=== PATIENT | female | born 1940 | race Caucasian/White ===

== ENCOUNTER → 2020-01-07 14:32 | Outpatient (CLI) | payer SELFPAY ==
[2020-01-07 14:46] LABS: RBC Urine None Seen (0-5/HPF)
[2020-01-07 15:19] LABS: Appearance Urine UA SL CLOUDY; Bilirubin Urine UA NEGATIVE (NEGATIVE); Color Urine UA YELLOW; Glucose Urine UA NEGATIVE (Negative); Ketones Urine UA NEGATIVE (NEGATIVE); Leukocyte Esterase Urine UA TRACE (NEGATIVE); Nitrite Urine UA POSITIVE (Negative); Occult Blood Urine UA NEGATIVE (Negative); Protein Urine UA NEGATIVE (Negative); Urobilinogen Urine UA 0.2 E.U./dL (0.2)
[2020-01-07 15:22] LABS: Add Manual Diff / Slide Review NO; Basophils Absolute Auto 0 /uL (0-100); Basophils Percent Auto 0.2 % (0-2); Eosinophils Absolute Auto 100 /uL (0-450); Eosinophils Percent Auto 1.4 % (2-4); Hematocrit 33.2 % (36-46); Hemoglobin 10.9 g/dL (12.0-16.0); Lymphocytes Absolute Auto 1100 /uL (1100-4500); Lymphocytes Percent Auto 14.7 % (25-40); Mean Corpuscular HGB Conc 32.9 % (30-36); Mean Corpuscular Hemoglobin 30.9 PG (26-34); Mean Corpuscular Volume 94.1 fL (80-100); Monocytes Absolute Auto 400 /uL (0-900); Monocytes Percent Auto 5.8 % (3-14); Neutrophils Absolute Auto 6000 /uL (1500-7000); Neutrophils Percent Auto 77.9 % (50-75); Platelet Count 219 X10^3/uL (150-400); Red Blood Cell Count 3.53 X10^6/uL (4.0-5.2); Red Cell Distribution Width 14.7 % (11.6-14.8); White Blood Cell Count 7.7 X10^3/uL (4.5-11.0)
[2020-01-07 15:35] LABS: Bacteria Urine Many (>30); WBC Urine 5-10/HPF (0-5/HPF)
[2020-01-07 15:36] LABS: Culture Indicated Urine Specimen Cultured
[2020-01-07 15:52] LABS: Alanine Aminotransferase 15 IU/L (<35); Albumin 2.4 g/dL (3.5-5.0); Albumin Globulin Ratio 0.9 (1.0-2.8); Alkaline Phosphatase 107 U/L (38-126); Aspartate Aminotransferase 28 IU/L (14-36); BUN Creatinine Ratio 18.7 (6-22); Bilirubin Total 0.4 mg/dL (0.2-1.3); Blood Urea Nitrogen 20 mg/dL (7-17); Calcium 8.7 mg/dL (8.4-10.2); Carbon Dioxide 31 mmol/L (22-32); Chloride 104 mmol/L (98-107); Cholesterol 116 mg/dL (140-199); Estimated Glomerular Filt Rate 49.3 mL/min (>60); Globulin 2.7 g/dL (1.7-4.1); Glucose 92 mg/dL (80-110); HDL Cholesterol 45 mg/dL (40-60); HEMOLYSIS < 15 (0-50); LDL Cholesterol Calculated 48 mg/dL (<100); Potassium 5.1 mmol/L (3.4-5.1); Sodium 136 mmol/L (137-145); Total Protein 5.1 g/dL (6.3-8.2); Triglycerides 115 mg/dL (35-150)
[2020-01-07 16:42] LABS: Vitamin B12 849 pg/mL (239-931)
== END ==
PROVIDERS: Family Provider Family Medicine; PCP Registered Nurse Diabetes Educator; Referring Provider Registered Nurse Diabetes Educator; Visit Provider Registered Nurse Diabetes Educator
DX: E03.9 Hypothyroidism, unspecified (principal); Z13.220 Encounter for screening for lipoid disorders; E53.8 Deficiency of other specified B group vitamins; R32 Unspecified urinary incontinence
CPT/HCPCS: 36415; 80053; 80061; 81001; 82607; 84439; 84443; 85025; 87077; 87086; 87186

== ENCOUNTER → 2020-03-05 14:46 | Outpatient (CLI) | payer SELFPAY ==
[2020-03-05 16:01] LABS: BUN Creatinine Ratio 14.7 (6-22); Blood Urea Nitrogen 17 mg/dL (7-17); Carbon Dioxide 34 mmol/L (22-32); Chloride 105 mmol/L (98-107); Glucose 115 mg/dL (80-110); HEMOLYSIS < 15 (0-50); Sodium 139 mmol/L (137-145)
== END ==
PROVIDERS: Family Provider Family Medicine; PCP Family Medicine; Referring Provider Family Medicine; Visit Provider Family Medicine
DX: R89.9 Unspecified abnormal finding in specimens from other organs, systems and tissues (principal)
CPT/HCPCS: 36415; 80048

== ENCOUNTER → 2020-05-31 12:46 | Outpatient (CLI) | payer SELFPAY ==
[2020-05-31 14:04] LABS: Add Manual Diff / Slide Review NO; Basophils Absolute Auto 0 /uL (0-100); Basophils Percent Auto 0.4 % (0-2); Eosinophils Absolute Auto 200 /uL (0-450); Eosinophils Percent Auto 3.8 % (2-4); Hematocrit 35.1 % (36-46); Hemoglobin 11.4 g/dL (12.0-16.0); Lymphocytes Absolute Auto 1200 /uL (1100-4500); Lymphocytes Percent Auto 18.2 % (25-40); Mean Corpuscular HGB Conc 32.5 % (30-36); Mean Corpuscular Hemoglobin 30.8 PG (26-34); Mean Corpuscular Volume 94.8 fL (80-100); Monocytes Absolute Auto 500 /uL (0-900); Monocytes Percent Auto 7.2 % (3-14); Neutrophils Absolute Auto 4600 /uL (1500-7000); Neutrophils Percent Auto 70.4 % (50-75); Platelet Count 184 X10^3/uL (150-400); Red Cell Distribution Width 13.7 % (11.6-14.8); White Blood Cell Count 6.5 X10^3/uL (4.5-11.0)
[2020-05-31 14:24] LABS: Alanine Aminotransferase 14 IU/L (<35); Albumin Globulin Ratio 1.1 (1.0-2.8); Alkaline Phosphatase 87 U/L (38-126); Aspartate Aminotransferase 28 IU/L (14-36); BUN Creatinine Ratio 20.4 (6-22); Bilirubin Total 0.4 mg/dL (0.2-1.3); Blood Urea Nitrogen 21 mg/dL (7-17); Calcium 8.9 mg/dL (8.4-10.2); Carbon Dioxide 35 mmol/L (22-32); Chloride 106 mmol/L (98-107); Cholesterol 127 mg/dL (140-199); Estimated Glomerular Filt Rate 51.6 mL/min (>60); Globulin 2.7 g/dL (1.7-4.1); Glucose 89 mg/dL (80-110); HDL Cholesterol 42 mg/dL (40-60); HEMOLYSIS < 15 (0-50); LDL Cholesterol Calculated 67 mg/dL (<100); Potassium 4.8 mmol/L (3.4-5.1); Sodium 137 mmol/L (137-145); Total Protein 5.7 g/dL (6.3-8.2); Triglycerides 91 mg/dL (35-150)
[2020-05-31 14:42] LABS: Free T3, Triiodothyronine Free 3.36 pg/mL (2.77-5.27); Free T4, Direct Thyroxine 1.08 ng/dL (0.78-2.19)
[2020-05-31 14:55] LABS: Thyroid Stimulating Hormone 4.28 uIU/mL (0.47-4.68)
[2020-05-31 15:13] LABS: Vitamin B12 891 pg/mL (239-931)
== END ==
PROVIDERS: Family Provider Family Medicine; PCP Family Medicine; Referring Provider Family Medicine; Visit Provider Family Medicine
DX: D64.9 Anemia, unspecified (principal); E03.9 Hypothyroidism, unspecified; E53.8 Deficiency of other specified B group vitamins; N18.31 Chronic kidney disease, stage 3a; Z13.220 Encounter for screening for lipoid disorders
CPT/HCPCS: 36415; 80053; 80061; 82607; 84439; 84443; 84481; 85025

== ENCOUNTER → 2020-06-18 13:06 | Outpatient (CLI) | payer SELFPAY ==
--- NOTE | 2020-06-18 13:16 | DI.RAD.S_ITS ---
PROCEDURE: XR CERVICAL SPINE 2V OR 3V INDICATIONS: neck pain TECHNIQUE: 4 view(s) of the cervical spine were acquired. COMPARISON: None. FINDINGS: Bones: No fractures or dislocations to the C4-C5 level on the lateral view. There is near severe degenerative disc disease faintly seen through the shoulders at the C5-6 and C6-7 levels of the cervical spine. Facet osteoarthritis over the middle and lower thirds of the cervical spine appears moderately severe on the frontal projection.. The lateral masses of C1 appear intact on the odontoid view. No suspicious bony lesions. Soft tissues: No prevertebral soft tissue swelling. IMPRESSION: Limited study as discussed above, no definite trauma found. Moderately severe to severe degenerative disc disease over the lower half of the cervical spine, and moderately severe mid and lower 3rd facet osteoarthritis along the cervical spine bilaterally. Significant spinal and foraminal stenosis would be expected. Dictated by: Frantz Morgan M.D. on 06/18/2020 at 14:15 Approved by: Frantz Morgan M.D. on 06/18/2020 at 14:17
== END ==
PROVIDERS: Family Provider Family Medicine; PCP Family Medicine; Referring Provider Family Medicine; Visit Provider Family Medicine
DX: M50.322 Other cervical disc degeneration at C5-C6 level (principal); M47.812 Spondylosis without myelopathy or radiculopathy, cervical region; G89.29 Other chronic pain
CPT/HCPCS: 72040

== ENCOUNTER → 2020-08-03 13:19 | Outpatient (CLI) | payer SELFPAY ==
--- NOTE | 2020-08-03 13:23 | DI.RAD.S_ITS ---
PROCEDURE: XR CHEST 2V INDICATIONS: dyspnea on exertion TECHNIQUE: 2 views of the chest were acquired. COMPARISON: None. FINDINGS: Surgical changes and devices: Surgical clips project over the epigastric region and right upper quadrant of the abdomen. Lungs and pleura: Mild diffuse reticulonodular pulmonary opacity is present. Calcified granuloma within the right mid lung. No pleural effusions or pneumothorax. Mediastinum: Mediastinal contours are normal. Heart size is enlarged. Bones and chest wall: No suspicious bony abnormalities. Soft tissues appear unremarkable. IMPRESSION: 1. Mild pulmonary fibrosis versus atypical pneumonia. 2. Remote granulomatous disease. 3. Cardiomegaly. Dictated by: Jagdish Thakkar M.D. on 08/03/2020 at 16:33 Approved by: Jagdish Thakkar M.D. on 08/03/2020 at 16:34
[2020-08-03 14:43] LABS: Alanine Aminotransferase 14 IU/L (<35); Albumin Globulin Ratio 1.1 (1.0-2.8); Alkaline Phosphatase 75 U/L (38-126); Aspartate Aminotransferase 26 IU/L (14-36); Bilirubin Total 0.5 mg/dL (0.2-1.3); Blood Urea Nitrogen 19 mg/dL (7-17); Calcium 9.2 mg/dL (8.4-10.2); Carbon Dioxide 29 mmol/L (22-32); Chloride 104 mmol/L (98-107); Estimated Glomerular Filt Rate 56.6 mL/min (>60); Globulin 2.7 g/dL (1.7-4.1); Glucose 93 mg/dL (80-110); HEMOLYSIS < 15 (0-50); Potassium 4.8 mmol/L (3.4-5.1); Sodium 136 mmol/L (137-145); Total Protein 5.7 g/dL (6.3-8.2)
[2020-08-03 14:44] LABS: NT-proBNP (BNP-Adult 18+) 1630 pg/mL (<450)
== END ==
PROVIDERS: Family Provider Family Medicine; PCP Family Medicine; Referring Provider Family Medicine; Visit Provider Family Medicine
DX: R06.00 Dyspnea, unspecified (principal)
CPT/HCPCS: 36415; 71046; 80053; 83880

== ENCOUNTER → 2021-02-15 13:36 | Outpatient (CLI) | payer MEDICARE, MEDICAID, SELFPAY ==
--- NOTE | 2021-02-15 13:37 | DI.RAD.S_ITS ---
PROCEDURE: XR HUMERUS LT 2V INDICATIONS: left arm pain TECHNIQUE: 2 views of the humerus were acquired. COMPARISON: [facility], CR, XR HUMERUS LEFT, 04/15/2018, 11:38. [facility], CR, XR HUMERUS LEFT, 03/25/2018, 8:55. [facility], CR, XR SHOULDER 2+ VIEWS LEFT, 11/13/2018, 10:13. FINDINGS: Bones: Cortical irregularity is seen at the proximal humeral metaphysis, consistent with known healed fracture. The alignment is unchanged. Severe degenerative changes are seen at the glenohumeral joint with joint space narrowing, subchondral sclerosis, and marginal osteophyte formation. Mild to moderate degenerative changes are seen in the acromioclavicular joint. No suspicious bony lesions. Soft tissues: Small ossification is seen anterior to the distal humerus, possibly representing a dystrophic calcification , unchanged when compared to radiographs from 03/25/2018. Calcifications are again seen adjacent to the greater tuberosity, consistent with rotator cuff calcific tendinopathy. IMPRESSION: 1. Severe glenohumeral osteoarthrosis. 2. Chronic healed fracture deformity of the proximal humerus. 3. Rotator cuff calcific tendinopathy. Dictated by: Geoffrey Sargent M.D. on 02/15/2021 at 15:40 Approved by: Geoffrey Sargent M.D. on 02/15/2021 at 15:44
--- NOTE | 2021-02-15 13:37 | DI.RAD.S_ITS ---
PROCEDURE: XR ELBOW LT MIN 3V INDICATIONS: left elbow pain TECHNIQUE: 3 views of the elbow were acquired. COMPARISON: None. FINDINGS: Bones: No definite fracture although arthritic changes limits study sensitivity. There is moderate to severe joint degeneration. Chondrocalcinosis is noted. Dystrophic soft tissue calcifications seen in the antecubital fossa measuring 8 mm Soft tissues: No elbow joint effusion. No suspicious soft tissue calcifications. Soft tissue swelling at the tip of the olecranon. IMPRESSION: Severe left elbow osteoarthritis. Olecranon soft tissue swelling. Chondrocalcinosis. Dictated by: Delio Church M.D. on 02/15/2021 at 16:18 Approved by: Delio Church M.D. on 02/15/2021 at 16:21
== END ==
PROVIDERS: Family Provider Family Medicine; PCP Family Medicine; Referring Provider Registered Nurse; Visit Provider Registered Nurse
DX: M19.022 Primary osteoarthritis, left elbow (principal); M11.222 Other chondrocalcinosis, left elbow; M79.89 Other specified soft tissue disorders; M25.522 Pain in left elbow; M79.602 Pain in left arm
CPT/HCPCS: 73060; 73080

== ENCOUNTER 2021-03-19 18:50 | Inpatient (IN) | payer MEDICARE, OTHER, MEDICAID, SELFPAY ==
[2021-03-19] VITALS (12 sets, daily range): BP systolic 143–172; BP diastolic 65–74; PULSE 63–83; RESP 15–27; TEMP 36.8; O2SAT 91–99; BMI 22.4
--- NOTE | 2021-03-19 19:13 | DI.RAD.S_ITS ---
PROCEDURE: XR CHEST 1V INDICATIONS: weak TECHNIQUE: One view of the chest was acquired. COMPARISON: [facility], CR, XR CHEST 2V, 08/03/2020, 13:36. FINDINGS: Surgical changes and devices: Surgical clips noted in the left upper abdomen. Lungs and pleura: Stable calcified granuloma in the periphery of the right mid lung zone. Diffuse interstitial prominence. Minimal blunting of the bilateral costophrenic angles. No pneumothorax. No focal consolidations. Mediastinum: The cardiomediastinal contours remain stable with leftward deviation of the upper trachea. Atherosclerotic calcifications of the aortic arch are present. Mild cardiomegaly. Bones and chest wall: No suspicious bony lesions. Overlying soft tissues appear unremarkable. IMPRESSION: 1. Cardiomegaly. 2. Diffuse interstitial prominence which is nonspecific but may represent an infectious/inflammatory process versus mild pulmonary edema. Recommend clinical correlation. No focal consolidation. 3. Stable appearance of mild leftward deviation of the trachea secondary to soft tissue density of the right superior paratracheal region. Findings may be related to overlapping vascular structures versus enlarged thyroid versus adenopathy. Dictated by: Rodolfo Cash M.D. on 03/19/2021 at 19:34 Approved by: Rodolfo Cash M.D. on 03/19/2021 at 19:39
[2021-03-19 19:28] LABS: Add Manual Diff / Slide Review NO; Basophils Absolute Auto 100 /uL (0-100); Basophils Percent Auto 0.5 % (0-2); Eosinophils Absolute Auto 0 /uL (0-450); Hematocrit 36.4 % (36-46); Hemoglobin 12.3 g/dL (12.0-16.0); Lymphocytes Absolute Auto 300 /uL (1100-4500); Lymphocytes Percent Auto 3.1 % (25-40); Mean Corpuscular HGB Conc 33.8 % (30-36); Mean Corpuscular Volume 91.5 fL (80-100); Monocytes Absolute Auto 700 /uL (0-900); Monocytes Percent Auto 6.5 % (3-14); Neutrophils Absolute Auto 9500 /uL (1500-7000); Neutrophils Percent Auto 89.9 % (50-75); Platelet Count 149 X10^3/uL (150-400); Red Blood Cell Count 3.98 X10^6/uL (4.0-5.2); Red Cell Distribution Width 13.1 % (11.6-14.8); White Blood Cell Count 10.6 X10^3/uL (4.5-11.0)
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
[2021-03-19] MEDS: SODIUM CHLORIDE 0.9% 1,000 ML 150 ML IV (19:29)
[2021-03-19 19:36] LABS: INR 1.1 (0.9-1.3); Prothrombin Time 11.9 SECONDS (10.1-12.7)
[2021-03-19 19:38] LABS: D Dimer 658 ng/mL (<230)
[2021-03-19 19:39] LABS: Lactate (Lactic Acid) 1.7 mmol/L (0.7-2.1)
[2021-03-19 19:40] LABS: Alanine Aminotransferase 23 IU/L (<35); Albumin 3.5 g/dL (3.5-5.0); Albumin Globulin Ratio 1.1 (1.0-2.8); Alkaline Phosphatase 70 U/L (38-126); Aspartate Aminotransferase 42 IU/L (14-36); BUN Creatinine Ratio 19.6 (6-22); Bilirubin Total 1.3 mg/dL (0.2-1.3); Blood Urea Nitrogen 21 mg/dL (7-17); Calcium 9.2 mg/dL (8.4-10.2); Carbon Dioxide 27 mmol/L (22-32); Chloride 92 mmol/L (98-107); Creatine Kinase 40 U/L (30-135); Estimated Glomerular Filt Rate 49.2 mL/min (>60); Globulin 3.1 g/dL (1.7-4.1); Glucose 150 mg/dL (80-110); HEMOLYSIS < 15 (0-50); Lipase 34 U/L (23-300); Potassium 4.2 mmol/L (3.4-5.1); Sodium 126 mmol/L (137-145); Total Protein 6.6 g/dL (6.3-8.2)
[2021-03-19 19:52] LABS: NT-proBNP (BNP-Adult 18+) 7170 pg/mL (<450); Troponin I 0.048 ng/mL (0.01-0.034)
[2021-03-19] MEDS: PANTOPRAZOLE 40 MG VIAL IV (19:52)
[2021-03-19] MEDS: ONDANSETRON 4 MG/2 ML INJ IV (19:52)
[2021-03-19 19:56] LABS: Procalcitonin 1.04 ng/mL (<0.5)
--- NOTE | 2021-03-19 20:06 | DI.CT.S_ITS ---
PROCEDURE: CT ANGIO CHEST PE PROTOCOL INDICATIONS: SOB, elevated troponin, BNP, DDimer TECHNIQUE: After the administration of intravenous contrast, 2 mm thick sections acquired from the pulmonary apices to the posterior costophrenic angles. 3-dimensional maximum intensity projection (MIP) coronal and sagittal reformats were then acquired through the thorax. For radiation dose reduction, the following was used: automated exposure control, adjustment of mA and/or kV according to patient size. COMPARISON: [facility], CR, XR CHEST 1V, 03/19/2021, 19:15. FINDINGS: Image quality: Excellent. Pulmonary arteries: There is enlargement of the main pulmonary arteries without evidence for acute right-sided heart strain. Findings likely represent sequela of chronic pulmonary arterial hypertension. No intraluminal filling defects to suggest central pulmonary embolism. Lungs and pleura: Trace bilateral pleural effusions with mild dependent atelectasis. There is a noncalcified 5 mm nodule in the periphery of the right upper lobe (image 106/series 5). Central and peripheral airways are patent. Mediastinum: Heart size is mildly enlarged, without pericardial effusion. Mild scattered atherosclerotic calcifications of the coronary arteries are noted. No mediastinal or hilar adenopathy. There is a nonspecific fluid attenuation lesion measuring approximately 1.2 x 2.3 cm involving the right infrahilar region. No associated enhancement. Thoracic aorta is normal in caliber and enhancement. Moderate atherosclerotic calcifications are seen in the thoracic aorta. Esophagus is distended and contains layering fluid. Findings are most pronounced in the proximal and mid esophagus. Suggestion of mild circumferential esophageal wall thickening. No hiatal hernia seen. Bones and chest wall: No suspicious bony lesions. Stable calcified nodule seen on prior radiograph correlates with a well-circumscribed oval sclerotic lesion along the lateral right 7th rib. This is likely a bone island. Ribs and thoracic spine appear intact throughout. Thyroid gland demonstrates enlargement of the right thyroid lobe extending substernally. This accounts in part for right paratracheal soft tissue density seen on comparison radiographs. No definable thyroid nodules. No axillary or supraclavicular adenopathy. No acute compression fractures of the imaged spine. Multilevel thoracic spondylosis. Abdomen: Multiple surgical clips are noted in the upper abdomen. Visualized upper abdominal solid organs are otherwise unremarkable in the early arterial phase of enhancement. IMPRESSION: 1. No acute pulmonary emboli identified. No evidence for acute right-sided heart strain. 2. Enlargement of the main pulmonary artery likely related to chronic pulmonary arterial hypertension. 3. Mild cardiomegaly and trace bilateral pleural effusions. 4. Atherosclerosis. 5. Thyromegaly with enlarged substernal right thyroid lobe. No definable nodules. Consider further characterization with outpatient thyroid ultrasound. The thyroid as well as adjacent vascular structures account for prominent right paratracheal density on comparison radiographs. 6. Nonspecific 1.2 x 2.3 cm fluid attenuation lesion in the right infrahilar region. This may represent a pericardial cyst. Low-attenuation neoplasm not excluded. Recommend short interval follow-up CT with contrast in 6-12 months to document continued stability. 7. Previously described calcified right mid lung zone granuloma correlates with a likely bone island along the lateral aspect of the right 7th rib. 8. Prominent, mildly distended esophagus with layering fluid and mild circumferential wall thickening. No distal stricturing or mass lesions. Findings may represent sequela of reflux esophagitis. Consider further evaluation with outpatient endoscopy or esophagram. Dictated by: Rodolfo Cash M.D. on 03/19/2021 at 20:35 Approved by: Rodolfo Cash M.D. on 03/19/2021 at 20:55
[2021-03-19 20:29] LABS: COVID19 - ADMIT (NP swab/PCR) Negative (Negative)
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
[2021-03-19 21:43] LABS: TSH w/ Reflex to FT4 1.46 uIU/mL (0.47-4.68)
[2021-03-19] MEDS: MORPHINE ER 30 MG TABLET PO (23:09)
[2021-03-19] MEDS: FLUoxetine 20 MG CAPSULE PO (23:10)
[2021-03-19 23:58] LABS: Sodium Urine Random 125 mmol/L (30-90)
[2021-03-20] VITALS (8 sets, daily range): BP systolic 134–148; BP diastolic 63–80; PULSE 71–86; RESP 14–19; TEMP 36.3–37.3; O2SAT 92–96; BMI 22.8
[2021-03-20 01:34] LABS: Troponin I 0.053 ng/mL (0.01-0.034)
--- NOTE | 2021-03-20 04:18 | PC.ADMIT ---
[facility] Admission Note: Patient arrived to floor at 00:35 from ED. Alert and orient x 4. Patient shown how to use call light and call light placed with in reach. Tele placed on patient, ICU notified. Urine specimen sent to lab. Bed alarm on, brakes on bed are locked. The patient,Elizabeth Leiva,80 y/o, was given written information regarding hospital policies, unit procedures and contact persons. Patient's smoking status: Former smoker. Vital Signs - 8 hr 03/19/21 21:20 03/19/21 21:30 03/19/21 22:00 Temperature Pulse Rate 75 74 82 Respiratory Rate 23 23 27 H Blood Pressure 143/65 H 151/68 H Pulse Oximetry 95 92 95 03/19/21 22:30 03/19/21 23:00 03/19/21 23:39 Temperature Pulse Rate 74 80 83 Respiratory Rate 19 24 20 Blood Pressure Pulse Oximetry 94 95 93 03/19/21 23:40 03/20/21 00:40 Temperature 98.5 F Pulse Rate 70 77 Respiratory Rate 15 18 Blood Pressure 148/65 H 141/80 H Pulse Oximetry 99 96
[2021-03-20] MEDS: ONDANSETRON 4 MG/2 ML INJ IV (05:38)
--- NOTE | 2021-03-20 07:18 | DI.ECHO.S_ITS ---
[facility]---------[facility] +---------+ : : [address] : : : : [id number] : : : : Phone: [phone] Echocardiogram Report + + :Name: JON ROJAS Study Date: 03/20/2021 Height: 65 in : :[facility] ReadingLocation: Weight: 137 lb : : Gender: Female BSA: 1.7 m2 : :: 1940 Age: 80 yrs BP: 148/65 mmHg: :Reason For Study: CONGESTIVE HEART FAILURE, ELEVATED TROPONIN : :Ordering Physician: VERONIKA, : :JYOTI Performed By: Aura Villagomez : :Referring: JYOTI BANDA : + + Interpretation Summary Left ventricular systolic function is borderline reduced with an estimated ejection fraction of 50 to 55% without any focal wall motion abnormality. Left ventricular size is normal with mild to moderate concentric hypertrophy. There is a probable diastolic relaxation abnormality with probable normal filling pressures. The right ventricle is at the upper limits of normal in size with systolic function at the lower limits of normal. Right ventricular systolic pressure cannot be estimated but CVP is likely around 3 mmHg. There is severe left atrial enlargement and mild to moderate right atrial enlargement. There is no significant functional valvular abnormality. Procedure: A two-dimensional transthoracic echocardiogram with color flow and Doppler was performed. The study quality was technically adequate. There is no prior echocardiogram noted for this patient. The patient was in sinus rhythm with heart rates between 74-82 bpm during the exam. Left Ventricle: The left ventricle is normal in size. The estimated left ventricular end diastolic volume is 69 ml. There is mild-moderate concentric left ventricular hypertrophy. Left ventricular systolic function is borderline reduced. The ejection fraction is estimated to be 50-55%. There are no focal wall motion abnormalities. Diastolic parameters suggest a relaxation abnormality of the left ventricle, consistent with probable normal filling pressures. Right Ventricle: The right ventricle is at the upper limits of normal in size. Right ventricular systolic function is at the lower limits of normal. Atria: The left atrium is severely dilated. The right atrium is mild to moderately dilated. There is no Doppler evidence for an interatrial shunt. Mitral Valve: The mitral valve is normal in structure and function. There is trace mitral regurgitation. Aortic Valve: The aortic valve is trileaflet. The aortic valve opens well. There is no aortic valve stenosis. No aortic regurgitation is present. Tricuspid Valve: The tricuspid valve is normal in structure and function. There is trace tricuspid regurgitation. Pulmonary artery pressures cannot be estimated because of the lack of a measurable TR jet velocity but the IVC suggests a CVP of around 3 mmHg. Pulmonic Valve: The pulmonic valve leaflets are thin and pliable; valve motion is normal. There is no pulmonic valvular regurgitation. There is no significant valvular heart disease. Great Vessels: The aortic root is normal size. The dimensions of the ascending aorta are normal. The IVC is of normal diameter and collapses greater than 50% with a sniff. This suggests a low right atrial pressure of 3 mm Hg. Pericardium/ Pleura There is no pericardial effusion. There is no pleural effusion. MMode/2D Measurements & Calculations LVIDd: 5.1 cm LVOT diam: 2.3 cm LVIDs: 4.1 cm Ao root diam: 3.3 cm FS: 21.1 % asc Aorta Diam: 3.2 cm IVSd: 1.4 cm LVPWd: 1.3 cm LV cramer. diameter/BSA (cm/m^2): 3.1 LV sys. diameter/BSA (cm/m^2): 2.4 LA A2 area: 25.6 cm2 RA long axis: 5.1 cm LA A4 area: 27.8 cm2 RA area: 19.6 cm2 LA length (vol): 6.4 cm RA vol: 63.6 ml LA vol: 95.0 ml RA : 37.8 ml/m2 LA vol index: 56.4 ml/m2 IVC diam: 1.6 cm RVD1 (basal): 3.5 cm TAPSE: 2.5 cm Doppler Measurements & Calculations Ao V2 max: 105.1 cm/sec LVOT Max Esdras: 84.8 cm/sec Ao V2 mean: 80.2 cm/sec LV V1 max P.9 mmHg Ao max P.4 mmHg LV V1 VTI: 17.4 cm Ao mean P.8 mmHg GILBERT(I,D): 3.5 cm2 Ao V2 VTI: 21.4 cm GILBERT(V,D): 3.5 cm2 sev ratio: 0.82 GILBERT indexed to BSA (cm^2/m^2): 2.1 MV E max esdras: 73.7 cm/sec PA V2 max: 87.4 cm/sec MV A max esdras: 76.0 cm/sec PA V2 mean: 62.0 cm/sec MV E/A: 0.97 PA mean P.7 mmHg Med Peak E' Esdras: 3.9 cm/sec PA pr(Accel): 36.2 mmHg E/E' med: 18.9 Lat Peak E' Esdras: 4.8 cm/sec E/E' lat: 15.5 E/e' average: 17.2 MV dec time: 0.22 sec SV(LVOT): 75.3 ml Reading Physician:11:56 AM
[2021-03-20 08:48] LABS: Add Manual Diff / Slide Review NO; Basophils Absolute Auto 0 /uL (0-100); Basophils Percent Auto 0.1 % (0-2); Eosinophils Absolute Auto 0 /uL (0-450); Hematocrit 35.5 % (36-46); Hemoglobin 11.8 g/dL (12.0-16.0); Lymphocytes Absolute Auto 300 /uL (1100-4500); Lymphocytes Percent Auto 3.6 % (25-40); Mean Corpuscular HGB Conc 33.3 % (30-36); Mean Corpuscular Hemoglobin 30.5 PG (26-34); Mean Corpuscular Volume 91.6 fL (80-100); Monocytes Absolute Auto 1000 /uL (0-900); Monocytes Percent Auto 10.8 % (3-14); Neutrophils Absolute Auto 8100 /uL (1500-7000); Neutrophils Percent Auto 85.5 % (50-75); Platelet Count 134 X10^3/uL (150-400); Red Blood Cell Count 3.87 X10^6/uL (4.0-5.2); Red Cell Distribution Width 13.3 % (11.6-14.8); White Blood Cell Count 9.4 X10^3/uL (4.5-11.0)
[2021-03-20 09:03] LABS: BUN Creatinine Ratio 21.5 (6-22); Blood Urea Nitrogen 20 mg/dL (7-17); Calcium 8.9 mg/dL (8.4-10.2); Carbon Dioxide 27 mmol/L (22-32); Chloride 93 mmol/L (98-107); Estimated Glomerular Filt Rate 57.9 mL/min (>60); Glucose 97 mg/dL (80-110); HEMOLYSIS 26 (0-50); Magnesium 1.8 mg/dL (1.6-2.3); Potassium 4.3 mmol/L (3.4-5.1); Sodium 125 mmol/L (137-145)
[2021-03-20 09:15] LABS: Troponin I 0.053 ng/mL (0.01-0.034)
[2021-03-20] MEDS: LEVOTHYROXINE 100 MCG TABLET PO (10:10)
[2021-03-20] MEDS: ENOXAPARIN 40 MG/0.4 ML SYRINGE SUBCUT (10:10)
[2021-03-20] MEDS: PANTOPRAZOLE 40 MG VIAL IV (10:10)
--- NOTE | 2021-03-20 11:00 | CM.DANOTE ---
DCP: Case received, EMR reviewed and met with patient. Introduced self and role. Was able to obtain information regarding patient's baseline activity. DCP assessment completed with information currently available. Patient is an 80 year old female who admitted yesterday evening to the care of the hospitalist team. PCP: Dr. Rubio. Payer: confirmed: Medicare/Medicaid [employer] Program. Patient came to the hospital via private vehicle secondary to feeling awful. Patient was noted to be hyponatremic, and have an increased troponin. Met with patient in her room. She is alert and oriented, and sitting up in bed. Confirmed with patient that she resides in [place] with her granddaughter, Maame. Patient indicated that she does have a FWW at home that she uses, and she does her own showers and meals. She does not drive, and takes para transit as well as senior transportation to her medical appointments. P: DCP to continue to follow. She does not yet have current P.T. orders, hospitalist has not yet seen her. She should be able to go home when she is medically stable, and may consider a P.T. eval as well. Harriett Vega RN/Medical Art Therapist Discharge Planning/Care Management Advanced directive, confirm from FAMILY Start: 03/20/21 01:19 PDT Freq: Q24H Status: Active Protocol: Document 03/20/21 09:00 CM (Rec: 03/20/21 09:18 CM [id number]) Advance Directive, confirm on record Time 09:18 Person contacted Pt Copy received No CM Discharge Assessment Start: 03/20/21 10:58 Freq: Status: Active Protocol: Document 03/20/21 10:58 VM (Rec: 03/20/21 11:00 VM [id number]) Discharge Planning Assessment Assigned Ditch Worker Harriett Vega RN/Medical Art Therapist Advance Directives? No Advance Directives on File No History Provided By Patient,Medical Record Prior Living Arrangements Apartment/Condo Household Members family Type of transporation used prior to Relies on Others admit Comment Patient uses para transit and senior transportation to her medical appointments. Independent with ADL's Yes Is patient alert and oriented? Yes Needs Assistance With Home Chores / Shopping Caregiver for Another No Barriers to Discharge No Discharge Plan Home Transportation Arrangement Granddaughter Referrals Initiated None needed Additional Comment She does not have current P.T. orders as of yet. Hospitalist will need to see patient. Whiteboard Updated in Patient Room with Yes name and ext. # of Ditch Worker Review Status In Process Next Review Type Continued Stay Review
[2021-03-20] MEDS: MORPHINE ER 30 MG TABLET PO ×2 (12:09→22:52)
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
[2021-03-20] MEDS: HYDROCODONE/ACET 5/325 TABLET 1 TAB PO (18:09)
--- NOTE | 2021-03-20 20:07 | PC.NURSE ---
Patient is alert and oriented. BISHOP PAIUTE and does not have hearing aids. Breath sounds CTA with RA sat of 92%. HRR with last telemetry reading recorded as SR w/1st degree AVB. BP elevated at 140/65 and BP meds are currently on hold. Admits to feeling slightly nauseated but without emesis and declines offer of antiemetic. BT present and abdomen is soft; passing flatus. Denies dysuria or frequency with urination but states she normally has some urgency and hesitancy. Is able to move herself in bed. Up to bathroom with SBA; does not use an assistive device. Has chronic low back/hip pain and states pain us currently 3/10; had Vicodin at 1809. On fluid restriction due to low sodium. Fall risk score is moderate and bed alarm is activated.
[2021-03-20] MEDS: FLUoxetine 20 MG CAPSULE PO (20:55)
[2021-03-20] MEDS: SODIUM CHLORIDE 0.9% FLUSH 10 ML IV (20:55)
[2021-03-21 00:12] VITALS: BP 125/77; PULSE 71; RESP 18; TEMP 36.4; O2SAT 93
[2021-03-21] MEDS: HYDROCODONE/ACET 5/325 TABLET 1 TAB PO (02:13)
[2021-03-21 04:54] VITALS: BP 132/69; PULSE 68; RESP 26; TEMP 36.7; O2SAT 94
[2021-03-21 06:01] LABS: BUN Creatinine Ratio 18.9 (6-22); Blood Urea Nitrogen 21 mg/dL (7-17); Carbon Dioxide 30 mmol/L (22-32); Chloride 93 mmol/L (98-107); Estimated Glomerular Filt Rate 47.2 mL/min (>60); Glucose 108 mg/dL (80-110); HEMOLYSIS < 15 (0-50); Potassium 3.8 mmol/L (3.4-5.1); Sodium 128 mmol/L (137-145)
[2021-03-21] MEDS: LEVOTHYROXINE 100 MCG TABLET PO (06:31)
[2021-03-21 07:25] VITALS: BP 132/70; PULSE 72; RESP 16; TEMP 36.3; O2SAT 93
[2021-03-21 08:00] VITALS: O2SAT 95
[2021-03-21] MEDS: ENOXAPARIN 40 MG/0.4 ML SYRINGE SUBCUT (08:10)
[2021-03-21] MEDS: SODIUM CHLORIDE 0.9% FLUSH 10 ML IV (08:10)
[2021-03-21] MEDS: POTASSIUM CHLORIDE 20 MEQ TAB PO (08:11)
[2021-03-21 08:51] VITALS: O2SAT 95
[2021-03-21 11:45] VITALS: BP 130/74; PULSE 75; RESP 18; TEMP 36.7; O2SAT 92
[2021-03-21] MEDS: MORPHINE ER 30 MG TABLET PO (12:07)
--- NOTE | 2021-03-21 13:20 | PC.NURSE ---
Pt is ready for discharge and awaiting the arrival of her friend to take her home. IV and Tele have been d/c'd. Went over d/c instructions with Pt - discussed d/c meds, time of last dose, reviewed stroke education, discussed fluid restriction diet and recommendations set forth by Dr. Medina. Pt to follow up next week and have her electrolytes assessed. Pt given information regarding fluid restriction diet, hyponatremia, and CHF but at this time is advised to increase sodium intake until sodium level improves. Pt denies further questions and will be taken out via w/c by [facility] to POV with friend and all belongings.
[2021-03-21 14:34] LABS: Osmolality, Serum 269 mOsmol/kg (280-301)
[2021-03-21 14:34] LABS: Osmolality Urine 739 mOsmol/kg (.)
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
== END 2021-03-21 14:36 | disposition home or self-care (01) | DRG 641 ==
LOC: ED 19:07 → AC 22:54
PROVIDERS: Internal Medicine; Admitting Provider Internal Medicine; Emergency Provider Emergency Medicine; Family Provider Family Medicine; PCP Family Medicine; Referring Provider Emergency Medicine; Visit Provider Internal Medicine
DX: E87.1 Hypo-osmolality and hyponatremia (principal); E86.1 Hypovolemia; D64.9 Anemia, unspecified; D69.6 Thrombocytopenia, unspecified; I10 Essential (primary) hypertension; F32.A Depression, unspecified; E03.9 Hypothyroidism, unspecified; Z66 Do not resuscitate; Z87.891 Personal history of nicotine dependence; Z20.822 Contact with and (suspected) exposure to COVID-19
CPT/HCPCS: 36415; 71045; 71275; 80048; 80053; 82550; 83605; 83690; 83735; 83880; 83930; 83935; 84145; 84300; 84443; 84484; 85025; 85379; 85610; 87040; 87635; 93005; 93010; 93306; 94760; 96361; 96374; 96375; 99284; C9803; C9113; J1650; J2405; Q9967

== ENCOUNTER → 2021-03-26 09:58 | Outpatient (CLI) | payer MEDICARE, MEDICAID, SELFPAY ==
[2021-03-20 00:27] VITALS: BMI 22.8
[2021-03-26 11:26] LABS: Add Manual Diff / Slide Review NO; Basophils Absolute Auto 0 /uL (0-100); Basophils Percent Auto 0.3 % (0-2); Eosinophils Absolute Auto 400 /uL (0-450); Eosinophils Percent Auto 4.6 % (2-4); Hematocrit 34.9 % (36-46); Hemoglobin 11.4 g/dL (12.0-16.0); Lymphocytes Absolute Auto 1300 /uL (1100-4500); Lymphocytes Percent Auto 15.9 % (25-40); Mean Corpuscular HGB Conc 32.6 % (30-36); Mean Corpuscular Hemoglobin 30.3 PG (26-34); Mean Corpuscular Volume 93.1 fL (80-100); Monocytes Absolute Auto 600 /uL (0-900); Monocytes Percent Auto 7.4 % (3-14); Neutrophils Absolute Auto 5700 /uL (1500-7000); Neutrophils Percent Auto 71.8 % (50-75); Platelet Count 349 X10^3/uL (150-400); Red Blood Cell Count 3.75 X10^6/uL (4.0-5.2); Red Cell Distribution Width 13.3 % (11.6-14.8)
[2021-03-26 11:52] LABS: Alanine Aminotransferase 23 IU/L (<35); Albumin 3.2 g/dL (3.5-5.0); Alkaline Phosphatase 119 U/L (38-126); Aspartate Aminotransferase 31 IU/L (14-36); BUN Creatinine Ratio 13.1 (6-22); Bilirubin Total 0.3 mg/dL (0.2-1.3); Blood Urea Nitrogen 14 mg/dL (7-17); Calcium 9.4 mg/dL (8.4-10.2); Carbon Dioxide 34 mmol/L (22-32); Chloride 101 mmol/L (98-107); Estimated Glomerular Filt Rate 49.2 mL/min (>60); Globulin 3.1 g/dL (1.7-4.1); Glucose 93 mg/dL (80-110); HEMOLYSIS < 15 (0-50); Potassium 4.7 mmol/L (3.4-5.1); Sodium 139 mmol/L (137-145); Total Protein 6.3 g/dL (6.3-8.2)
== END ==
PROVIDERS: Family Provider Family Medicine; PCP Family Medicine; Referring Provider Family Medicine; Visit Provider Family Medicine
DX: E53.8 Deficiency of other specified B group vitamins (principal); N18.31 Chronic kidney disease, stage 3a; D64.9 Anemia, unspecified; E87.1 Hypo-osmolality and hyponatremia
CPT/HCPCS: 36415; 80053; 85025

== ENCOUNTER 2021-06-12 16:20 | Inpatient (IN) | payer MEDICARE, MEDICAID, SELFPAY ==
[2021-05-24 13:10] VITALS: BMI 22.8
[2021-06-12 16:20] VITALS: BP 158/75; PULSE 91; RESP 20; TEMP 37.7; O2SAT 95
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
[2021-06-12 17:13] LABS: Add Manual Diff / Slide Review NO; Basophils Absolute Auto 0 /uL (0-100); Basophils Percent Auto 0.1 % (0-2); Eosinophils Absolute Auto 0 /uL (0-450); Eosinophils Percent Auto 0.1 % (2-4); Hematocrit 35.6 % (36-46); Hemoglobin 11.8 g/dL (12.0-16.0); Lymphocytes Absolute Auto 300 /uL (1100-4500); Lymphocytes Percent Auto 1.9 % (25-40); Mean Corpuscular HGB Conc 33.2 % (30-36); Mean Corpuscular Hemoglobin 29.7 PG (26-34); Mean Corpuscular Volume 89.5 fL (80-100); Monocytes Absolute Auto 400 /uL (0-900); Monocytes Percent Auto 3.1 % (3-14); Neutrophils Absolute Auto 13100 /uL (1500-7000); Neutrophils Percent Auto 94.8 % (50-75); Platelet Count 149 X10^3/uL (150-400); Red Blood Cell Count 3.98 X10^6/uL (4.0-5.2); Red Cell Distribution Width 13.7 % (11.6-14.8); White Blood Cell Count 13.8 X10^3/uL (4.5-11.0)
[2021-06-12 17:23] VITALS: PULSE 84; RESP 21; O2SAT 92
[2021-06-12 17:25] LABS: Alanine Aminotransferase 15 IU/L (<35); Albumin 3.3 g/dL (3.5-5.0); Albumin Globulin Ratio 1.1 (1.0-2.8); Alkaline Phosphatase 85 U/L (38-126); Aspartate Aminotransferase 29 IU/L (14-36); BUN Creatinine Ratio 15.1 (6-22); Bilirubin Total 1.1 mg/dL (0.2-1.3); Blood Urea Nitrogen 13 mg/dL (7-17); Carbon Dioxide 28 mmol/L (22-32); Chloride 99 mmol/L (98-107); Estimated Glomerular Filt Rate > 60.0 mL/min (>60); Glucose 162 mg/dL (80-110); HEMOLYSIS < 15 (0-50); Lipase 15 U/L (23-300); Magnesium 1.6 mg/dL (1.6-2.3); Potassium 3.9 mmol/L (3.4-5.1); Sodium 130 mmol/L (137-145); Total Protein 6.3 g/dL (6.3-8.2)
[2021-06-12 17:36] LABS: Troponin I 0.025 ng/mL (0.01-0.034)
[2021-06-12 17:50] LABS: COVID19 -Nasal RAPID POSITIVE (Negative)
[2021-06-12] MEDS: ONDANSETRON 4 MG/2 ML INJ IV ×2 (18:12→22:24)
--- NOTE | 2021-06-12 18:30 | DI.CT.S_ITS ---
PROCEDURE: CT ABDOMEN PELVIS WO CON INDICATIONS: nausea and vomiting TECHNIQUE: Axial sections were acquired from the lung bases to the pubic symphysis. Coronal and sagittal reformats were performed. For radiation dose reduction, the following was used: automated exposure control, adjustment of mA and/or kV according to patient size. COMPARISON: [facility], CT, CT ANGIO CHEST PE PROTOCOL, 03/19/2021, 20:18. FINDINGS: Image quality: Portions of the lower pelvis are suboptimally evaluated secondary to metallic streak artifact from bilateral hip arthroplasty. Lung bases: Minimal dependent effusions. Heart: The heart is enlarged. URINARY: Right Kidney: The right kidney is atrophic. There is no obstruction. No calcifications. Right Ureter: No hydroureter. Left Kidney: The left kidney is atrophic. No obstruction. No calculi. Left Ureter: No hydroureter. Bladder: Normal wall thickness. No stones. ABDOMEN: Liver: Unremarkable. Gallbladder: Removed. Biliary ducts: Unremarkable. Pancreas: Unremarkable. Spleen: Unremarkable. Adrenal Glands: Unremarkable. Stomach and Bowel: Small bowel loops, and colon are nonobstructive. Significant colonic stool is present including within rectum. Gastric bypass surgical changes are noted. Peritoneum: No abnormal intraperitoneal fluid. No free air. Ventral Wall: No hernia. Abdominal Nodes: No enlarged retroperitoneal or mesenteric lymph nodes. Vessels: Aorta and inferior vena cava are normal in size. PELVIS: Pelvic Organs: Unremarkable. Pelvic Nodes: Unremarkable. Miscellaneous: No inguinal hernias are seen. Bones: Multilevel degenerative changes are present within the visualized thoracolumbar spine. IMPRESSION: Significant colonic stool consistent with constipation. No obstruction. Dictated by: Ruchi Arellano M.D. on 06/12/2021 at 20:53 Approved by: Ruchi Arellano M.D. on 06/12/2021 at 20:56
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
[2021-06-12] MEDS: SODIUM CHLORIDE 0.9% 1,000 ML 100 ML IV (18:48)
[2021-06-12 19:01] LABS: Appearance Urine UA CLEAR; Bilirubin Urine UA NEGATIVE (NEGATIVE); Color Urine UA YELLOW; Glucose Urine UA NEGATIVE (Negative); Ketones Urine UA TRACE (NEGATIVE); Leukocyte Esterase Urine UA 1+ (NEGATIVE); Nitrite Urine UA NEGATIVE (Negative); Occult Blood Urine UA 3+ (Negative); Protein Urine UA TRACE (Negative); Specific Gravity Urine UA 1.015 (1.000-1.035)
[2021-06-12 19:10] LABS: Bacteria Urine Few (2-10); Culture Indicated Urine Specimen Cultured; RBC Urine 10-30/HPF (0-5/HPF); WBC Urine 1-5/HPF (0-5/HPF)
--- NOTE | 2021-06-12 19:11 | DI.RAD.S_ITS ---
PROCEDURE: XR CHEST 1V INDICATIONS: leukocytosis evaluate for pneumonia TECHNIQUE: One view of the chest was acquired. COMPARISON: [facility], CT, CT ANGIO CHEST PE PROTOCOL, 03/19/2021, 20:18. [facility], CT, CT ABDOMEN PELVIS WO CON, 06/12/2021, 20:26. [facility], CR, XR CHEST 1V, 03/19/2021, 19:15. FINDINGS: Surgical changes and devices: Clips are present projecting over the upper abdomen. Lungs and pleura: There is blunting of the costophrenic angles bilaterally. There is a soft tissue density along the medial aspect the right upper lobe. This appears to correspond to a markedly enlarged right thyroid lobe which extends into the mediastinum as identified on CT chest of 03/19/2021. Opacity is noted overlying the right middle lobe which appears to correspond to sclerotic focus within the right rib on 03/19/2021 exam. Mediastinum: Mediastinal contours appear normal. Heart size is enlarged. Bones and chest wall: No suspicious bony lesions. Overlying soft tissues appear unremarkable. IMPRESSION: Minimal effusions. Medial right upper lobe opacity appearing to correspond to enlarged thyroid gland based on prior exam. Thyroid ultrasound is recommended as clinically indicated for further evaluation Dictated by: Ruchi Arellano M.D. on 06/12/2021 at 21:05 Approved by: Ruchi Arellano M.D. on 06/12/2021 at 21:07
[2021-06-12 20:07] LABS: Cortisol Random 48.8 ug/dL
[2021-06-12 20:08] LABS: TSH w/ Reflex to FT4 2.05 uIU/mL (0.47-4.68)
[2021-06-12 21:10] VITALS: BP 127/72; PULSE 84; RESP 14; TEMP 36.6; O2SAT 99
[2021-06-12 21:22] VITALS: BMI 21.5
[2021-06-12 21:35] VITALS: O2SAT 94
[2021-06-12] MEDS: HEPARIN 5,000 UNIT/ML VIAL 5000 UNIT SUBCUT (22:24)
[2021-06-12] MEDS: MORPHINE ER 30 MG TABLET PO (22:42)
[2021-06-12] MEDS: MORPHINE IR 15 MG TABLET PO (22:42)
[2021-06-12] MEDS: FLUoxetine 10 MG CAPSULE PO (22:42)
--- NOTE | 2021-06-12 23:48 | PC.ADMIT ---
Patient admitted to room 203 per stretcher from ER at 2044. Is alert and oriented. Breath sounds CTA with RA sat of 94%. Denies any SOB but does have rare, nonproductive cough. Is very [place] and does not wear hearing aids. HRR and telemetry reading was SR. Complained of nausea at time of assessment and was medicated with Zofran. BT present and abdomen is soft. Denied dysuria at time of assessment but when up to bathroom later did complain of burning with urination; is continent of urine but wears a small pad for dribbling. Is able to move herself in bed and gets up to the bathroom with SBA. Bilateral calf SCD's applied. Complained of 10/10 generalized pain and was given her scheduled Morphine ER in addition to Morphine IR. Fall risk score is moderate and bed alarm is activated. Is covid positive so is on isolation precautions. Oriented to bed controls and call light. [email or web address] Admission Note: The patient,Elizabeth Leiva,80 y/o, was given written information regarding hospital policies, unit procedures and contact persons. Patient's smoking status: Former smoker. Vital Signs - 8 hr 06/12/21 16:20 06/12/21 17:23 06/12/21 21:10 Temperature 99.9 F H 97.9 F Pulse Rate 91 H 84 84 Respiratory Rate 20 21 14 Blood Pressure 158/75 H 127/72 Pulse Oximetry 95 92 99 06/12/21 21:35 Temperature Pulse Rate Respiratory Rate Blood Pressure Pulse Oximetry 94
[2021-06-13] VITALS (9 sets, daily range): BP systolic 127–158; BP diastolic 66–93; PULSE 78–92; RESP 14–18; TEMP 36.3–37; O2SAT 92–96
[2021-06-13] MEDS: SODIUM CHLORIDE 0.9% 1,000 ML 100 ML IV ×2 (05:10→16:03)
[2021-06-13] MEDS: LEVOTHYROXINE 100 MCG TABLET PO (06:30)
[2021-06-13 08:25] LABS: Add Manual Diff / Slide Review NO; Basophils Absolute Auto 0 /uL (0-100); Basophils Percent Auto 0.3 % (0-2); Eosinophils Absolute Auto 0 /uL (0-450); Eosinophils Percent Auto 0.1 % (2-4); Hematocrit 33.7 % (36-46); Hemoglobin 11.2 g/dL (12.0-16.0); Lymphocytes Absolute Auto 700 /uL (1100-4500); Lymphocytes Percent Auto 7.5 % (25-40); Mean Corpuscular HGB Conc 33.3 % (30-36); Mean Corpuscular Hemoglobin 30.2 PG (26-34); Mean Corpuscular Volume 90.7 fL (80-100); Monocytes Absolute Auto 700 /uL (0-900); Monocytes Percent Auto 7.7 % (3-14); Neutrophils Absolute Auto 7500 /uL (1500-7000); Neutrophils Percent Auto 84.4 % (50-75); Platelet Count 147 X10^3/uL (150-400); Red Blood Cell Count 3.71 X10^6/uL (4.0-5.2); Red Cell Distribution Width 13.9 % (11.6-14.8); White Blood Cell Count 8.8 X10^3/uL (4.5-11.0)
[2021-06-13] MEDS: cefTRIAXone 2,000 MG in SODIUM CHLORIDE 0.9% 100 ML 200 ML IV (08:35)
[2021-06-13] MEDS: FERROUS SULFATE 325 MG TABLET PO (08:35)
[2021-06-13] MEDS: HEPARIN 5,000 UNIT/ML VIAL 5000 UNIT SUBCUT ×2 (08:35→21:12)
[2021-06-13] MEDS: FLUoxetine 20 MG CAPSULE PO (08:35)
[2021-06-13] MEDS: MORPHINE ER 30 MG TABLET PO ×2 (08:35→21:13)
[2021-06-13] MEDS: ONDANSETRON 4 MG/2 ML INJ IV ×2 (08:42→18:16)
[2021-06-13 08:43] LABS: Acinetobacter baumannii Not Detected (Not Detect); Enterobacteriaceae species Detected (Not Detect); Enterococcus species Not Detected (Not Detect); KPC (carbapenem-resist gene) Not Detected (Not Detect); Listeria monocytogenes Not Detected (Not Detect); Methicillin-resistant gene Not Detected (Not Detect); Staphylococcus species Not Detected (Not Detect); Streptococcus agalactiae (Gr B Not Detected (Not Detect); Streptococcus pneumonia Not Detected (Not Detect); Streptococcus pyogenes (Gr A) Not Detected (Not Detect); Streptococcus species Not Detected (Not Detect); Vancomycin-rest genes A/B Not Detected (Not Detect)
[2021-06-13 08:44] LABS: Candida albicans Not Detected (Not Detect); Candida glabrata Not Detected (Not Detect); Candida krusei Not Detected (Not Detect); Candida parapsilosis Not Detected (Not Detect); Candida tropicalis Not Detected (Not Detect); E. coli Detected (Not Detect); Enterobacter cloacae complex Not Detected (Not Detect); Haemophilus influenzae Not Detected (Not Detect); Neisseria meningitidis Not Detected (Not Detect); Proteus species Not Detected (Not Detect); Pseudomonas aeruginosa Not Detected (Not Detect); Serratia marcescens Not Detected (Not Detect)
[2021-06-13 08:55] LABS: Alanine Aminotransferase 14 IU/L (<35); Albumin 2.8 g/dL (3.5-5.0); Alkaline Phosphatase 69 U/L (38-126); Aspartate Aminotransferase 26 IU/L (14-36); BUN Creatinine Ratio 15.2 (6-22); Bilirubin Total 0.8 mg/dL (0.2-1.3); Blood Urea Nitrogen 14 mg/dL (7-17); Calcium 8.8 mg/dL (8.4-10.2); Carbon Dioxide 30 mmol/L (22-32); Chloride 102 mmol/L (98-107); Estimated Glomerular Filt Rate 58.6 mL/min (>60); Globulin 2.9 g/dL (1.7-4.1); Glucose 92 mg/dL (80-110); HEMOLYSIS < 15 (0-50); Magnesium 1.7 mg/dL (1.6-2.3); Potassium 4.1 mmol/L (3.4-5.1); Sodium 133 mmol/L (137-145); Total Protein 5.7 g/dL (6.3-8.2)
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
[2021-06-13] MEDS: MAGNESIUM CHLORIDE 64 MG TABLET 128 MG PO (16:03)
[2021-06-13] MEDS: FLUoxetine 10 MG CAPSULE PO (16:03)
--- NOTE | 2021-06-13 21:36 | PC.NURSE ---
Patient is alert and oriented. Breath sounds CTA with RA sat of 94%. HRR. BP elevated at 146/78. Nauseated prior to shift change and was medicated with Zofran and now states nausea has resolved. BT hypoactive; abdomen is soft and non tender. Is passing flatus. Denies dysuria, frequency or urgency with urination. States she is still feeling weak so is being assisted to bathroom with SBA although patient reports she does use a walker at home. Complains of chronic back and hip pain and was medicated with scheduled Morphine ER. Is able to turn herself in bed. Bilateral calf SCD's applied. Remains on COVID precautions although asymptomatic respiratory ramires. Fall risk score is moderate and bed alarm is activated.
[2021-06-14] VITALS (7 sets, daily range): BP systolic 132–159; BP diastolic 80–97; PULSE 73–89; RESP 16–18; TEMP 36.7–37.3; O2SAT 93–97
[2021-06-14] MEDS: MELATONIN 3 MG TABLET 6 MG PO (00:03)
[2021-06-14] MEDS: SODIUM CHLORIDE 0.9% 1,000 ML 100 ML IV ×2 (02:14→14:00)
[2021-06-14] MEDS: LEVOTHYROXINE 100 MCG TABLET PO (06:36)
[2021-06-14] MEDS: cefTRIAXone 2,000 MG in SODIUM CHLORIDE 0.9% 100 ML 200 ML IV (08:47)
[2021-06-14] MEDS: FLUoxetine 20 MG CAPSULE PO (08:47)
[2021-06-14] MEDS: FERROUS SULFATE 325 MG TABLET PO (08:47)
[2021-06-14] MEDS: HEPARIN 5,000 UNIT/ML VIAL 5000 UNIT SUBCUT ×2 (08:48→21:57)
[2021-06-14] MEDS: MORPHINE ER 30 MG TABLET PO ×2 (08:48→21:57)
[2021-06-14 10:17] LABS: Hematocrit 38.6 % (36-46); Hemoglobin 12.5 g/dL (12.0-16.0); Mean Corpuscular HGB Conc 32.5 % (30-36); Mean Corpuscular Hemoglobin 30.3 PG (26-34); Mean Corpuscular Volume 93.4 fL (80-100); Platelet Count 158 X10^3/uL (150-400); Red Blood Cell Count 4.13 X10^6/uL (4.0-5.2); Red Cell Distribution Width 14.4 % (11.6-14.8); White Blood Cell Count 6.4 X10^3/uL (4.5-11.0)
[2021-06-14 10:32] LABS: BUN Creatinine Ratio 12.5 (6-22); Blood Urea Nitrogen 12 mg/dL (7-17); Calcium 9.3 mg/dL (8.4-10.2); Carbon Dioxide 27 mmol/L (22-32); Chloride 107 mmol/L (98-107); Estimated Glomerular Filt Rate 55.8 mL/min (>60); Glucose 95 mg/dL (80-110); HEMOLYSIS 33 (0-50); Potassium 3.9 mmol/L (3.4-5.1); Sodium 138 mmol/L (137-145)
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
--- NOTE | 2021-06-14 14:31 | CM.DANOTE ---
DCP Assessment: Patient is an 80 yr old female who was admitted for COVID and N/V/D. CM was unable to reach the patient on the phone since the patient is COVID + was unable to go into the patients room. CM did brief assessment off of EMR and will attempt to call the patient again this afternoon. Per previous DC planning note done on 03/2021- resides in [place] with her granddaughter, Maame. Patient indicated that she does have a FWW at home that she uses, and she does her own showers and meals. She does not drive, and takes para transit as well as senior transportation to her medical appointments. I: Medicare and medicaid Plan DC plan still reviewing but believe it will be home with granddaughter when medically stable no identified DC planning needs at this time. CM department will attempt to get a hold of the patient again or family member to confirm DC plan with. Jovanna Sullivan RNfloatlight powder mixer Discharge Planning/Care Management Advanced directive, confirm from FAMILY Start: 06/12/21 21:28 Freq: Q24H Status: Complete Protocol: Document 06/13/21 07:00 LDV (Rec: 06/13/21 09:20 LDV [id number]) Advance Directive, confirm on record Time 09:00 Person contacted patient Copy received No CM Discharge Assessment Start: 06/14/21 14:29 Freq: Status: Active Protocol: Document 06/14/21 14:29 HS (Rec: 06/14/21 14:31 HS [id number]) Discharge Planning Assessment Assigned Dry Plasterer Helper Jovanna Sullivan RNfloatlight powder mixer Advance Directives? No Advance Directives on File No History Provided By Medical Record Comment CM was unable to speak with the patient she is COvid + and has not answered the phone when CM has called. Prior Living Arrangements Apartment/Condo Household Members family Discharge Plan Home Transportation Arrangement Granddaughter Referrals Initiated None needed Additional Comment She does not have current P.T. orders as of yet. Hospitalist will need to see patient. Review Status In Process Next Review Type Continued Stay Review
[2021-06-14] MEDS: FLUoxetine 10 MG CAPSULE PO (16:04)
[2021-06-14] MEDS: MORPHINE IR 15 MG TABLET PO (22:19)
[2021-06-15] VITALS (10 sets, daily range): BP systolic 152–180; BP diastolic 82–95; PULSE 82; RESP 16–20; TEMP 36.6–37.1; O2SAT 93–96
[2021-06-15] MEDS: MELATONIN 3 MG TABLET 6 MG PO (00:19)
[2021-06-15] MEDS: SODIUM CHLORIDE 0.9% 1,000 ML 100 ML IV (00:19)
[2021-06-15] MEDS: ONDANSETRON 4 MG/2 ML INJ IV (02:40)
[2021-06-15] MEDS: LEVOTHYROXINE 100 MCG TABLET PO (07:50)
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
[2021-06-15] MEDS: HEPARIN 5,000 UNIT/ML VIAL 5000 UNIT SUBCUT (09:51)
[2021-06-15] MEDS: MORPHINE ER 30 MG TABLET PO (09:51)
[2021-06-15] MEDS: FERROUS SULFATE 325 MG TABLET PO (09:52)
[2021-06-15] MEDS: cefTRIAXone 2,000 MG in SODIUM CHLORIDE 0.9% 100 ML 200 ML IV (09:52)
[2021-06-15] MEDS: MORPHINE IR 15 MG TABLET PO (09:54)
[2021-06-15] MEDS: FLUoxetine 20 MG CAPSULE PO (09:54)
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
--- NOTE | 2021-06-15 14:11 | PC.NURSE ---
Pt +denies manjeet issues at this time. SpO2 95% , Lungs clearMD here to discharge. HL discontinued, Home instructions given w/apparent understanding. Pt escorted by staff via W/C to waiting vehicle.
== END 2021-06-15 13:15 | disposition home or self-care (01) | DRG 689 ==
LOC: ED 18:10 → AC 18:14
PROVIDERS: Internal Medicine; Admitting Provider Internal Medicine; Emergency Provider Emergency Medicine; Family Provider Family Medicine; PCP Family Medicine; Referring Provider Emergency Medicine; Visit Provider Internal Medicine
DX: N39.0 Urinary tract infection, site not specified (principal); U07.1 COVID-19; E87.1 Hypo-osmolality and hyponatremia; R78.81 Bacteremia; R11.2 Nausea with vomiting, unspecified; B96.20 Unspecified Escherichia coli [E. coli] as the cause of diseases classified elsewhere; E53.8 Deficiency of other specified B group vitamins; E03.9 Hypothyroidism, unspecified; Z87.891 Personal history of nicotine dependence
CPT/HCPCS: 36415; 71045; 74176; 80048; 80053; 81001; 82533; 83690; 83735; 84443; 84484; 85025; 85027; 87040; 87086; 87150; 87186; 87205; 87635; 93005; 94760; 96361; 96374; 99284; 99285; C9803; J0696; J1644; J2405

== ENCOUNTER → 2021-07-07 12:52 | Outpatient (CLI) | payer MEDICARE, MEDICAID, SELFPAY ==
[2021-06-12 21:22] VITALS: BMI 21.5
[2021-07-07 13:59] LABS: BUN Creatinine Ratio 18.5 (6-22); Blood Urea Nitrogen 17 mg/dL (7-17); Calcium 9.3 mg/dL (8.4-10.2); Carbon Dioxide 34 mmol/L (22-32); Chloride 104 mmol/L (98-107); Cholesterol 155 mg/dL (140-199); Estimated Glomerular Filt Rate 58.6 mL/min (>60); Glucose 97 mg/dL (80-110); HDL Cholesterol 39 mg/dL (40-60); HEMOLYSIS < 15 (0-50); LDL Cholesterol Calculated 92 mg/dL (<100); Potassium 4.7 mmol/L (3.4-5.1); Sodium 137 mmol/L (137-145); Triglycerides 121 mg/dL (35-150)
== END ==
PROVIDERS: Family Provider Family Medicine; PCP Family Medicine; Referring Provider Internal Medicine Cardiovascular Disease; Visit Provider Internal Medicine Cardiovascular Disease
DX: I10 Essential (primary) hypertension (principal); Z13.220 Encounter for screening for lipoid disorders
CPT/HCPCS: 36415; 80048; 80061; 83735

== ENCOUNTER 2021-12-29 09:23 | Outpatient (RCR) | payer MEDICARE, MEDICAID, SELFPAY ==
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
--- NOTE | 2021-12-29 20:26 | PT.OPPOC ---
Physical, Occupational & Speech Therapy At [facility] Current Diagnoses Dizziness and giddiness (12/29/21) Visit Care Team Role Provider Type Jas Rubio DO Attending Provider Physician Family Provider Primary Care Provider Referring Provider Specialty: Family Practice Address: [address] [place] [address], [id number] Email: Plan Of Care PT-OP-T Assessment and Plan Start: 12/28/21 16:07 Freq: Status: Active Protocol: Document 12/29/21 09:45 AMB (Rec: 12/29/21 20:22 AMB [id number]) Physical Therapy Assessment Rehab Potential Rehabilitation Potential Good Evaluation Complexity Number of Personal Factors/Comorbidities 1-2 Number of Body Systems Impaired 1-2 Clinical Presentation at Evaluation Stable Impairments Impairments Balance,Vestibular Goals One Impairment Dizziness Short Term Goal (STG) Elizabeth will report no dizziness with bed mobility. STG Duration 2 weeks [employer] Goal (LTG) Elizabeth will have no nystagmus or dizziness with Renetta-Hallpike . LTG Duration 6 weeks Assessment Summary Assessment Elizabeth attends physical therapy with 1 month history of insidious onset dizziness worst with positional changes and rolling over in bed. She presented with postive R [place]- Hallpike, due to cervical stiffness, Shahida maneuver only performed once due to pain. Would recommend follow up treatment focusing on R Shahida maneuver. Physical Therapy Plan Frequency and Duration Frequency of Treatment 2x/Week Duration of Treatment 6 weeks Plan of Care Start Date 12/29/21 Plan of Care End Date 02/09/22 Therapeutic Interventions Therapeutic Interventions Balance Training,Canalithic Repositioning,Neuromuscular Re -education,Self-Care/Home Management,Therapeutic Activities,Therapeutic Exercises Next Visit Focus/Plan Next Note Type Treatment Note Next Visit Plan REcheck R renetta-hallpike Plan of Care Dates Plan of Care Start Date 12/29/21 Plan of Care End Date 02/09/22 Electronically Signed by: Eva Jordan PT 12/29/212025 If you are in agreement with this Plan of Care, please return a signed and dated copy. I have reviewed this Plan of Care and certify that the skilled therapy services above are required to meet the patient?s needs. Physician Signature Date Printed Name and Credentials Clinical Instructor Signature Printed Name and Credentials
--- NOTE | 2022-01-03 10:18 | PT-OP ANOTE ---
No show-- called patient and voicemail box is full.
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
== END 2022-02-17 14:55 | disposition home or self-care (01) ==
LOC: PHYS 09:23
PROVIDERS: Family Provider Family Medicine; PCP Family Medicine; Referring Provider Family Medicine; Visit Provider Family Medicine
DX: R42 Dizziness and giddiness (principal)
CPT/HCPCS: 97161

== ENCOUNTER 2022-01-04 15:37 | Inpatient (IN) | payer MEDICARE, MEDICAID, SELFPAY ==
[2022-01-04] VITALS (20 sets, daily range): BP systolic 144–184; BP diastolic 71–94; PULSE 75–85; RESP 15–37; TEMP 36.4; O2SAT 90–97; BMI 25.4
--- NOTE | 2022-01-04 15:47 | DI.RAD.S_ITS ---
PROCEDURE: XR CHEST 1V INDICATIONS: chest pain TECHNIQUE: One view of the chest was acquired. COMPARISON: [facility], CR, XR CHEST 1V, 06/12/2021, 20:23. FINDINGS: Surgical changes and devices: None. Lungs and pleura: There is mild patchy opacity within the bilateral perihilar locations and bibasilar locations. Vague rounded patchy opacity within the left mid lung. No pleural effusions or pneumothorax. Mediastinum: Mediastinal contours appear normal. Heart size is normal. Bones and chest wall: No suspicious bony lesions. Overlying soft tissues appear unremarkable. IMPRESSION: 1. Bilateral pulmonary opacities, consistent with pneumonia. 2. Follow-up chest x-ray is recommended to ensure resolution, and to exclude underlying malignancy, given the somewhat rounded appearance of the left mid lung density. Dictated by: Jagdish Thakkar M.D. on 01/04/2022 at 16:22 Approved by: Jagdish Thakkar M.D. on 01/04/2022 at 16:23
[2022-01-04 16:18] LABS: Prothrombin Time 11.2 SECONDS (10.1-12.7)
[2022-01-04 16:19] LABS: Add Manual Diff / Slide Review NO; Basophils Absolute Auto 100 /uL (0-100); Basophils Percent Auto 0.6 % (0-2); Eosinophils Absolute Auto 0 /uL (0-450); Eosinophils Percent Auto 0.1 % (2-4); Hematocrit 37.4 % (36-46); Hemoglobin 12.6 g/dL (12.0-16.0); Lymphocytes Absolute Auto 900 /uL (1100-4500); Lymphocytes Percent Auto 9.4 % (25-40); Mean Corpuscular HGB Conc 33.7 % (30-36); Mean Corpuscular Hemoglobin 30.9 PG (26-34); Mean Corpuscular Volume 91.7 fL (80-100); Monocytes Absolute Auto 600 /uL (0-900); Monocytes Percent Auto 6.3 % (3-14); Neutrophils Absolute Auto 8000 /uL (1500-7000); Neutrophils Percent Auto 83.6 % (50-75); Platelet Count 197 X10^3/uL (150-400); Red Blood Cell Count 4.08 X10^6/uL (4.0-5.2); Red Cell Distribution Width 13.8 % (11.6-14.8); White Blood Cell Count 9.6 X10^3/uL (4.5-11.0)
[2022-01-04 16:20] LABS: PTT Partial Thromboplastin Tim 32 SECONDS (26-36)
[2022-01-04 16:23] LABS: Albumin 3.5 g/dL (3.5-5.0); Albumin Globulin Ratio 1.1 (1.0-2.8); Aspartate Aminotransferase 25 IU/L (14-36); Bilirubin Total 1.7 mg/dL (0.2-1.3); Blood Urea Nitrogen 15 mg/dL (7-17); Carbon Dioxide 31 mmol/L (22-32); Chloride 97 mmol/L (98-107); Estimated Glomerular Filt Rate > 60 mL/min (>60); Globulin 3.3 g/dL (1.7-4.1); HEMOLYSIS < 15 (0-50); Total Protein 6.8 g/dL (6.3-8.2)
[2022-01-04 16:35] LABS: Troponin I 0.043 ng/mL (0.01-0.034)
[2022-01-04 16:44] LABS: Alanine Aminotransferase 14 IU/L (<35); Alkaline Phosphatase 77 U/L (38-126); Calcium 9.2 mg/dL (8.4-10.2); Creatine Kinase 84 U/L (30-135); Glucose 128 mg/dL (80-110); Lipase 25 U/L (23-300); Potassium 4.7 mmol/L (3.4-5.1); Sodium 133 mmol/L (137-145)
--- NOTE | 2022-01-04 17:19 | ED_ITS ---
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 pancreatic duct.? No evidence for choledocholithiasis or obstructing mass lesion.? No pancreatic mass visualized.? No adenopathy.? Recommend correlation with laboratory evaluation.? Recommend gastroenterology consultation and consideration of nonemergent abdominal MRI with MRCP. ? 2. New acute left-sided rib fractures involving the lateral 4th and posterior 6th through 8th ribs.? Small bilateral pleural effusions with compressive atelectasis.? No pneumothorax. ? 3.? Persistent cardiomegaly. ? 4. Atherosclerosis. ? 5. Other chronic findings as above.? ? ? Dictated by: Rodolfo Cash M.D. on 01/04/2022 at 17:49 ? ? Approved by: Rodolfo Cash M.D. on 01/04/2022 at 18:10 ? Chest x-ray: Radiologist's Impression: PROCEDURE:? XR CHEST 1V ? INDICATIONS:? chest pain ? TECHNIQUE:? One view of the chest was acquired.? ? COMPARISON:? [facility], CR, XR CHEST 1V, 06/12/2021, 20:23. ? FINDINGS:? ? Surgical changes and devices:? None.? ? Lungs and pleura:? There is mild patchy opacity within the bilateral perihilar locations and bibasilar locations.? Vague rounded patchy opacity within the left mid lung.? No pleural effusions or pneumothorax.? ? Mediastinum:? Mediastinal contours appear normal.? Heart size is normal.? ? Bones and chest wall:? No suspicious bony lesions.? Overlying soft tissues appear unremarkable.? ? IMPRESSION:? 1. Bilateral pulmonary opacities, consistent with pneumonia. 2. Follow-up chest x-ray is recommended to ensure resolution, and to exclude underlying malignancy, given the somewhat rounded appearance of the left mid lung density.? ? ? Dictated by: Jagdish Thakkar M.D. on 01/04/2022 at 16:22 ? ? Approved by: Jagdish Thakkar M.D. on 01/04/2022 at 16:23 ? MRCP: Radiologist's Impression: PROCEDURE:? MR ABDOMEN WO CON ? INDICATIONS:? CBD dilation/stone? ? TECHNIQUE:? Coronal HASTE through the abdomen, axial 2-D FLASH in- and [id number], and breath-hold T2 FSE with fat saturation through the biliary system and pancreas.? Oblique coronal and axial thin-slice HASTE, radial thick-slab HASTE centered on the extrahepatic b ile ducts.? ? ? Intravenous secretin:? Not requested.? ? COMPARISON:? CT chest, abdomen, and pelvis from earlier same day. ? FINDINGS:? Image quality:? Nondiagnostic.? ? Only a limited number of sequences were obtained secondary to patient not able to hold still secondary to pain from left-sided rib fractures.? Single T2 weighted coronal sequence and single partially acquired T2 weighted axial sequence were acquired.? Redemonstration of intrahepatic and extrahepatic biliary ductal dilatation most pronounced in the common bile duct.? On MRI evaluation, common bile duct measures up to 2.7 cm in size.? No definite mass or intraluminal filling defects.? Small bilateral pleural effusions larger on the right.? No definite intrahepatic mass lesions.? Mild cardiomegaly.? Unremarkable bone marrow signal intensity.? ? ? IMPRESSION:? Nondiagnostic MRI evaluation of the abdomen secondary to limited sequences and patient inability to hold still for imaging secondary to multiple left-sided rib fractures.? Redemonstration of intrahepatic and extrahepatic biliary ductal dilatation most pronounced involving the common bile duct.? No definite mass or stone seen.? Recommend gastroenterology consultation.? Consider repeat imaging when patient is able.? ? ? Dictated by: Rodolfo Cash M.D. on 01/04/2022 at 20:14 ? ? Approved by: Rodolfo Cash M.D. on 01/04/2022 at 20:20 ? ECG Data Interpretation: EKG reviewed by myself and Dr. Bay which reveals normal sinus rhythm at 75 bpm with regular axis and intervals. No STEMI, ST segment changes, arrhythmia, or acute ischemic changes. MDM Narrative Medical decision making narrative: This is an 81-year-old female who presents to the emergency department with a family member for evaluation of her left-sided rib pain and left upper quadrant pain. Patient denies any recent trauma or falls, she was found to have fractures of her left 6th through 8th ribs as well as a lateral left 4th rib fracture. CT chest abdomen pelvis shows that these are new fractures and no associated adenopathy. Patient endorses shortness of breath with activity, chest x-ray reported bilateral pulmonary opacities consistent with pneumonia, chest abdomen pelvis CT shows interval development of severe intrahepatic and extrahepatic biliary ductal dilation with common bile duct measuring up to 3.4 cm in diameter. There is associated dilation of the main pancreatic duct. No evidence for a choledolcholithiasis or obstructing mass lesion. No pancreatic mass visualized. No adenopathy, also shows reported rib fractures as mentioned, persistent cardiomegaly, atherosclerosis. Abdomen ultrasound shows limited visualization of the upper abdomen demonstrating dilated intrahepatic and extrahepatic biliary ducts extrahepatic duct caliber measures 15 mm. Study was limited by moderate amount of overlying bowel gas and medical equipment. Patient's lab work does not reveal any leukocytosis or anemia however she has a left shift, INR of 1.0, sodium of 133, creatinine is 0.94 which is stable for patient, total bilirubin of 1.7, no elevation in liver enzymes, initial troponin was 0.43 at 16:00 and her EKG shows normal sinus rhythm without ST changes, normal intervals. Repeat troponin at 18:00 is 0.034. Lipase is 25. MRCP was ordered and patient is in scan currently. Consultation with Dr. Gomez/hospitalist for admission for pneumonia with multiple rib fractures, pleural effusions and dilated extrahepatic biliary duct. Patient has not had any hypoxia, tachypnea, abnormal vital signs, fever or other. It was shift change for the hospitalist and she reported that she would share this information with oncoming hospitalist. Abdominal MRI shows redemonstration of intrahepatic and extrahepatic biliary ductal dilatation most pronounced involving the common bile duct, no definite mass or stone. Quality of MRI is limited due to patient's inability to hold still for the imaging and for holding breath secondary to the multiple left- sided rib fractures. Patient was given an incentive spirometer and taught how to use it. Her pain was treated with hydromorphone. Patient is ambulatory to void without significant challenges, states it was very painful and she was short of breath by the time she returned. Discussion with Dr. Bhavik Sánchez hospitalist who accepts patient for admission. He states that it is okay for patient to have ice chips. <Alexa Bay, DO - Last Filed: 01/05/22 08:40> Lab Data Labs: Lab Results 01/04/22 01/04/22 01/04/22 Range/Units 16:00 16:00 16:00 WBC 9.6 (4.5-11.0) X10^3/uL RBC 4.08 (4.0-5.2) X10^6/uL Hgb 12.6 (12.0-16.0) g/dL Hct 37.4 (36-46) % MCV 91.7 (80-100) fL MCH 30.9 (26-34) PG MCHC 33.7 (30-36) % RDW 13.8 (11.6-14.8) % Plt Count 197 (150-400) X10^3/uL Neut % (Auto) 83.6 H (50-75) % Lymph % (Auto) 9.4 L (25-40) % [place] % (Auto) 6.3 (3-14) % Eos % (Auto) 0.1 L (2-4) % Baso % (Auto) 0.6 (0-2) % Neut # (Auto) 8000 H (9527-3979) /uL Lymph # (Auto) 900 L (6268-5761) /uL [place] # (Auto) 600 (0-900) /uL Eos # (Auto) 0 (0-450) /uL Baso # (Auto) 100 (0-100) /uL PT 11.2 (10.1-12.7) SECONDS INR 1.0 (0.9-1.3) APTT 32 (26-36) SECONDS Sodium 133 L (137-145) mmol/L Potassium 4.7 (3.4-5.1) mmol/L Chloride 97 L (98-107) mmol/L Carbon Dioxide 31 (22-32) mmol/L BUN 15 (7-17) mg/dL Creatinine 0.94 (0.52-1.04) mg/dL Estimated GFR > 60 (>60) mL/min BUN/Creatinine Ratio 16.0 (6-22) Glucose 128 H (80-110) mg/dL Calcium 9.2 (8.4-10.2) mg/dL Magnesium 2.0 (1.6-2.3) mg/dL Total Bilirubin 1.7 H (0.2-1.3) mg/dL AST 25 (14-36) IU/L ALT 14 (<35) IU/L Alkaline Phosphatase 77 (38-126) U/L Total Creatine Kinase 84 (30-135) U/L CK-MB (CK-2) TNP CK-MB (CK-2) Rel Index TNP Troponin I 0.043 H (0.01-0.034) ng/mL NT-Pro-B Natriuret Pep (<450) pg/mL Total Protein 6.8 (6.3-8.2) g/dL Albumin 3.5 (3.5-5.0) g/dL Globulin 3.3 (1.7-4.1) g/dL Albumin/Globulin Ratio 1.1 (1.0-2.8) Lipase 25 (23-300) U/L Urine Color Urine Appearance Urine pH (4.5-8.0) Ur Specific [place] (1.000-1.035) Urine Protein (Negative) Urine Glucose (UA) (Negative) g/dL Urine Ketones (NEGATIVE) Urine Occult Blood (Negative) Urine Nitrate (Negative) Urine Bilirubin (NEGATIVE) Urine Urobilinogen (0.2) E.U./dL Ur Leukocyte Esterase (NEGATIVE) Urine RBC (0-5/HPF) Urine WBC (0-5/HPF) Ur Squamous Epith Cells (0-5/HPF) Urine Bacteria (None) Ur Culture Indicated? 01/04/22 01/04/22 01/04/22 Range/Units 17:26 18:00 20:51 WBC (4.5-11.0) X10^3/uL RBC (4.0-5.2) X10^6/uL Hgb (12.0-16.0) g/dL Hct (36-46) % MCV (80-100) fL MCH (26-34) PG MCHC (30-36) % RDW (11.6-14.8) % Plt Count (150-400) X10^3/uL Neut % (Auto) (50-75) % Lymph % (Auto) (25-40) % [place] % (Auto) (3-14) % Eos % (Auto) (2-4) % Baso % (Auto) (0-2) % Neut # (Auto) (5342-4957) /uL Lymph # (Auto) (9433-4752) /uL [place] # (Auto) (0-900) /uL Eos # (Auto) (0-450) /uL Baso # (Auto) (0-100) /uL PT (10.1-12.7) SECONDS INR (0.9-1.3) APTT (26-36) SECONDS Sodium (137-145) mmol/L Potassium (3.4-5.1) mmol/L Chloride (98-107) mmol/L Carbon Dioxide (22-32) mmol/L BUN (7-17) mg/dL Creatinine (0.52-1.04) mg/dL Estimated GFR (>60) mL/min BUN/Creatinine Ratio (6-22) Glucose (80-110) mg/dL Calcium (8.4-10.2) mg/dL Magnesium (1.6-2.3) mg/dL Total Bilirubin (0.2-1.3) mg/dL AST (14-36) IU/L ALT (<35) IU/L Alkaline Phosphatase (38-126) U/L Total Creatine Kinase 74 (30-135) U/L CK-MB (CK-2) TNP CK-MB (CK-2) Rel Index TNP Troponin I 0.034 (0.01-0.034) ng/mL NT-Pro-B Natriuret Pep 8520 H (<450) pg/mL Total Protein (6.3-8.2) g/dL Albumin (3.5-5.0) g/dL Globulin (1.7-4.1) g/dL Albumin/Globulin Ratio (1.0-2.8) Lipase (23-300) U/L Urine Color Yellow Urine Appearance Clear Urine pH 7.5 (4.5-8.0) Ur Specific [place] 1.015 (1.000-1.035) Urine Protein Negative (Negative) Urine Glucose (UA) Negative (Negative) g/dL Urine Ketones 1+ H (NEGATIVE) Urine Occult Blood 2+ H (Negative) Urine Nitrate Negative (Negative) Urine Bilirubin Negative (NEGATIVE) Urine Urobilinogen 0.2 (0.2) E.U./dL Ur Leukocyte Esterase Negative (NEGATIVE) Urine RBC 5-10/hpf H (0-5/HPF) Urine WBC None seen (0-5/HPF) Ur Squamous Epith Cells 0-1 /hpf (0-5/HPF) Urine Bacteria None seen (None) Ur Culture Indicated? Cult not indicated Urine Dip Bedside Urine Glucose Negative Bedside Urine Bilirubin - Negative Bedside Urine Ketone +/- 5 Urine Specific [place] 1.010 Bedside Urine Occult Blood + Bedside Urine pH 8.0 Bedside Urine Protein - Negative Bedside Urine Urobilinogen - Negative Bedside Urine Nitrite - Negative Bedside Urine Leukocytes - Negative Esterase ECG Data Interpretation: EKG reviewed by myself and Dr. Bay which reveals normal sinus rhythm at 75 bpm with regular axis and intervals. No STEMI, ST segment changes, arrhythmia, or acute ischemic changes. Normal sinus rhythm rate 75 WI interval 186 QRS [address] changes T-wave inversion noted in lead 3 only, but similar to previous EKG in May 2021 Discharge Plan Departure Patient Disposition: Admitted As Inpatient Clinical Impression: Common bile duct dilation, Pleural effusion, Total bilirubin, elevated, History of cholecystectomy, Cardiomegaly, Elevated brain natriuretic peptide (BNP) level Pneumonia Qualifiers: Pneumonia type: due to unspecified organism Laterality: bilateral Lung location: lower lobe of lung Qualified Code(s): J18.9 - Pneumonia, unspecified organism Closed rib fracture Qualifiers: Encounter type: initial encounter Rib fracture type: multiple ribs Laterality: left Qualified Code(s): S22.42XA - Multiple fractures of ribs, left side, initial encounter for closed fracture BPPV (benign paroxysmal positional vertigo) Qualifiers: Laterality: unspecified laterality Qualified Code(s): H81.10 - Benign paroxysmal vertigo, unspecified ear Admit Date/Time: 01/04/22 22:18 Admit Provider: Bhavik Sánchez <Alexa Bay DO - Last Filed: 01/05/22 08:40> Cosign ED Attending Cosignature Attestation: I was immediately available in the department for consultation. Documentation has been reviewed. I agree with assessment and plan.
--- NOTE | 2022-01-04 17:22 | DI.CT.S_ITS ---
PROCEDURE: CT CHEST ABD PEL W CON INDICATIONS: pneumonia vs. LUQ finding? tenderness to left rib/flank/LUQ TECHNIQUE: After the administration of intravenous contrast, 5 mm thick sections acquired from the lung apices to the symphysis. 5 mm coronal and sagittal reformats were performed, with additional 7 mm MIP reformats through the lungs. For radiation dose reduction, the following was used: automated exposure control, adjustment of mA and/or kV according to patient size. COMPARISON: [facility], CT, CT ABDOMEN PELVIS WO CON, 06/12/2021, 20:26. [facility], CT, CT ANGIO CHEST PE PROTOCOL, 03/19/2021, 20:18. FINDINGS: Image quality: Diagnostic. CHEST: Lungs and pleura: Stable 5 mm subpleural inferior right upper lobe nodule seen on image 128/series 4. A 3 mm subpleural peripheral left upper lobe nodule is smaller. Stable 3 mm central right upper lobe nodule seen on image 142/series 4. No new or suspicious pulmonary nodule seen. Trace bilateral pleural effusion with associated compressive atelectasis. No septal thickening or nodularity. No pneumothorax. No acute airspace opacities. No pleural effusions or pneumothorax. Central and peripheral airways appear patent and normal in caliber. Mediastinum: Heart size is enlarged. No pericardial effusion. Coronary atherosclerotic vascular calcifications are noted. Stable right infrahilar fluid attenuation lesion in the right infrahilar region (image 35/series 2). No mediastinal or hilar adenopathy by size criteria. Thoracic aorta is normal in size. Redemonstration of enlargement of the main pulmonary artery compatible with sequela of chronic pulmonary arterial hypertension. Redemonstration of patulous esophagus with small amount of layering fluid. No suspicious wall thickening. No hiatal hernia. Chest wall: There are new, acute posterior left 6th through 8th rib fractures. Acute lateral left 4th rib fracture. No axillary or supraclavicular adenopathy by size criteria. Thyroid gland demonstrates persistent thyromegaly with enlarged substernal right thyroid lobe. No definable nodule seen. ABDOMEN: Solid organs: Status post cholecystectomy. Interval development of moderate biliary ductal dilatation with significant dilatation of the common bile duct not previously noted. Common bile duct measures up to 3.4 cm in diameter. There is also significant dilatation of the main pancreatic duct. No definite pancreatic mass lesion identified. No choledocholithiasis identified on CT. Liver is otherwise unremarkable, stable in appearance. No peripancreatic inflammation. Spleen is normal in size and enhancement. No adrenal nodules. Bilateral renal atrophy. Mild prominence of the bilateral renal pelvises more prominent on the right. No definite hydronephrosis. No hydroureter. No obstructing uroliths identified. No perinephric stranding. Peritoneum and bowel: Bowel loops demonstrate normal wall thickness and caliber. No free fluid or air. Moderate amount of fecal material noted throughout the colon. 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 Nodes and vessels: No retroperitoneal or mesenteric adenopathy by size criteria. Aorta and inferior vena cava are normal in size. Scattered atherosclerotic calcifications of the abdominal aorta. Miscellaneous: No ventral hernias. PELVIS: Genitourinary: Bladder wall thickness is unremarkable for degree of distension. Moderate urinary bladder distention. Miscellaneous: No inguinal hernias or adenopathy. Bones: No acute vertebral body compression fractures. Multilevel spondylitic changes throughout the imaged spine. No suspicious osseous lesions. Stable punctate calcification within the central canal in the lower lumbar spine/sacrum. Stable postsurgical changes of bilateral hip arthroplasty. Significant streak artifact from surgical hardware limits visualization of the lower pelvic structures. IMPRESSION: 1. Interval development of severe intrahepatic and extrahepatic biliary ductal dilatation with common bile duct measuring up to 3.4 cm in diameter. There is also associated dilatation of the main pancreatic duct. No evidence for choledocholithiasis or obstructing mass lesion. No pancreatic mass visualized. No adenopathy. Recommend correlation with laboratory evaluation. Recommend gastroenterology consultation and consideration of nonemergent abdominal MRI with MRCP. 2. New acute left-sided rib fractures involving the lateral 4th and posterior 6th through 8th ribs. Small bilateral pleural effusions with compressive atelectasis. No pneumothorax. 3. Persistent cardiomegaly. 4. Atherosclerosis. 5. Other chronic findings as above. Dictated by: Rodolfo Cash M.D. on 01/04/2022 at 17:49 Approved by: Rodolfo Cash M.D. on 01/04/2022 at 18:10
--- NOTE | 2022-01-04 18:19 | DI.US.S_ITS ---
PROCEDURE: US ABDOMEN LIMITED INDICATIONS: RUQ TECHNIQUE: Real-time scanning was performed of the abdominal and retroperitoneal organs, with image documentation. COMPARISON: CT from earlier same day. FINDINGS: Liver: Liver is normal in size and homogeneous in echotexture. Multiple intrahepatic ducts appear dilated. Gallbladder: Surgically absent Biliary ducts: Intrahepatic bile ducts are non-dilated. Extrahepatic bile duct caliber measures 15 mm. Normal is 6-7 mm or less in diameter, or 10 mm or less post-cholecystectomy. Of note, the biliary ducts are only partially imaged secondary to large amount of overlying bowel gas and overlying medical equipment. Pancreas: Pancreas not visualized. IMPRESSION: Limited visualization of the upper abdomen demonstrating dilated intrahepatic and extrahepatic biliary ducts. Study limited by moderate amount of overlying bowel gas and overlying medical equipment. Dictated by: Rodolfo Cash M.D. on 01/04/2022 at 18:50 Approved by: Rodolfo Cash M.D. on 01/04/2022 at 18:53
--- NOTE | 2022-01-04 18:20 | DI.MRI.S_ITS ---
PROCEDURE: MR ABDOMEN WO CON INDICATIONS: CBD dilation/stone? TECHNIQUE: Coronal HASTE through the abdomen, axial 2-D FLASH in- and [id number], and breath-hold T2 FSE with fat saturation through the biliary system and pancreas. Oblique coronal and axial thin-slice HASTE, radial thick-slab HASTE centered on the extrahepatic bile ducts. Intravenous secretin: Not requested. COMPARISON: CT chest, abdomen, and pelvis from earlier same day. FINDINGS: Image quality: Nondiagnostic. Only a limited number of sequences were obtained secondary to patient not able to hold still secondary to pain from left-sided rib fractures. Single T2 weighted coronal sequence and single partially acquired T2 weighted axial sequence were acquired. Redemonstration of intrahepatic and extrahepatic biliary ductal dilatation most pronounced in the common bile duct. On MRI evaluation, common bile duct measures up to 2.7 cm in size. No definite mass or intraluminal filling defects. Small bilateral pleural effusions larger on the right. No definite intrahepatic mass lesions. Mild cardiomegaly. Unremarkable bone marrow signal intensity. IMPRESSION: Nondiagnostic MRI evaluation of the abdomen secondary to limited sequences and patient inability to hold still for imaging secondary to multiple left-sided rib fractures. Redemonstration of intrahepatic and extrahepatic biliary ductal dilatation most pronounced involving the common bile duct. No definite mass or stone seen. Recommend gastroenterology consultation. Consider repeat imaging when patient is able. Dictated by: Rodolfo Cash M.D. on 01/04/2022 at 20:14 Approved by: Rodolfo Cash M.D. on 01/04/2022 at 20:20
[2022-01-04] MEDS: HYDROMORPHONE 0.5 MG INJ IV ×3 (18:37→21:59)
[2022-01-04] MEDS: SODIUM CHLORIDE 0.9% 1,000 ML 1000 ML IV (18:37)
[2022-01-04 18:42] LABS: Creatine Kinase 74 U/L (30-135)
[2022-01-04 18:53] LABS: NT-proBNP (BNP-Adult 18+) 8520 pg/mL (<450)
[2022-01-04 18:56] LABS: Troponin I 0.034 ng/mL (0.01-0.034)
[2022-01-04] MEDS: cefTRIAXone 1,000 MG in SODIUM CHLORIDE 0.9% 100 ML 200 MG IV (20:35)
[2022-01-04 21:03] LABS: Appearance Urine UA CLEAR; Bilirubin Urine UA NEGATIVE (NEGATIVE); Color Urine UA YELLOW; Glucose Urine UA NEGATIVE (Negative); Ketones Urine UA 1+ (NEGATIVE); Leukocyte Esterase Urine UA NEGATIVE (NEGATIVE); Nitrite Urine UA NEGATIVE (Negative); Occult Blood Urine UA 2+ (Negative); Protein Urine UA NEGATIVE (Negative); Specific Gravity Urine UA 1.015 (1.000-1.035); Urobilinogen Urine UA 0.2 E.U./dL (0.2)
[2022-01-04 21:25] LABS: pH Urine UA 7.5 (4.5-8.0)
[2022-01-04 21:26] LABS: Bacteria Urine None Seen; Culture Indicated Urine Cult Not Indicated; RBC Urine 5-10/HPF (0-5/HPF); Squamous Epithelial Cell Urine 0-1 /HPF (0-5/HPF); WBC Urine None Seen (0-5/HPF)
[2022-01-04] MEDS: AZITHROMYCIN 500 MG in DEXTROSE 5% IN WATER 250 ML 250 MG IV (22:00)
[2022-01-04] MEDS: MECLIZINE HCL 12.5 MG TABLET 25 MG PO (22:00)
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
[2022-01-05] VITALS (36 sets, daily range): BP systolic 152–186; BP diastolic 74–87; PULSE 76–87; RESP 17–37; TEMP 36.5–36.7; O2SAT 85–98; BMI 25.4
[2022-01-05] MEDS: OXYCODONE IR 5 MG TABLET PO ×4 (00:59→17:41)
--- NOTE | 2022-01-05 05:15 | DI.ECHO.S_ITS ---
[place] [facility]---------+ [facility] +---------+ : : [address] : : : : [id number] : : : : Phone: [phone]+ Echocardiogram Report + + :Name: JON ROJAS Study Date: 01/05/2022 Height: 60 in : :[facility] ReadingLocation: Weight: 130 lb : : Gender: Female BSA: 1.6 m2 : :: 1940 Age: 81 yrs BP: 186/84 mmHg: :Reason For Study: CONGESTIVE HEART FAILURE : :Ordering Physician: VERONIKA, : :JYOTI Performed By: Aura Villagomez : :Referring: JYOTI BANDA : + + Interpretation Summary The LV mass is severely enlarged and the wall thickness is consistent with concentric hypertrophy. Left ventricular systolic function is mild to moderately reduced. Left ventricular ejection fraction is estimated to be 40%. LVEF has reduced since prior study. There is mild global hypokinesis of the left ventricle. Diastolic parameters suggest a pseudonormalization pattern, consistent with probable elevated filling pressures. The right ventricle is normal in size and function. Pulmonary artery pressures cannot be estimated because of the lack of a measurable TR jet velocity. The left atrium is severely dilated. The right atrium is severely dilated. There is no significant valvular heart disease. The aortic root is normal size. Procedure: A two-dimensional transthoracic echocardiogram with color flow and Doppler was performed. The study quality was technically adequate. Comparison is made with the echocardiogram of 03/20/2021. The patient was in sinus rhythm with heart rates between 76-81 bpm during the exam. Left Ventricle: The left ventricle is normal in size. The LV mass is severely enlarged and the wall thickness is consistent with concentric hypertrophy. Left ventricular systolic function is mild to moderately reduced. Left ventricular ejection fraction is estimated to be 40%. There is mild global hypokinesis of the left ventricle. Diastolic parameters suggest a pseudonormalization pattern, consistent with probable elevated filling pressures. Right Ventricle: The right ventricle is normal in size and function. Atria: The left atrium is severely dilated. The right atrium is severely dilated. There is no Doppler evidence for an interatrial shunt. Mitral Valve: The mitral valve is normal in structure and function. There is trace mitral regurgitation. Aortic Valve: The aortic valve is trileaflet. The aortic valve opens well. There is no aortic valve stenosis. No aortic regurgitation is present. Tricuspid Valve: The tricuspid valve is normal in structure and function. There is trace tricuspid regurgitation. Pulmonary artery pressures cannot be estimated because of the lack of a measurable TR jet velocity. Pulmonic Valve: The pulmonic valve leaflets are thin and pliable; valve motion is normal. There is trace pulmonic regurgitation. There is no significant valvular heart disease. Great Vessels: The aortic root is normal size. The ascending aorta could not be visualized. The IVC is of normal diameter and collapses greater than 50% with a sniff. This suggests a low right atrial pressure of 3 mm Hg. Pericardium/ Pleura There is no pericardial effusion. MMode/2D Measurements & Calculations LVIDd: 4.4 cm LVOT diam: 2.2 cm LVIDs: 3.5 cm Ao root diam: 3.4 cm FS: 19.0 % asc Aorta Diam: 3.2 cm EPSS: 1.2 cm Ao Arch Diam (Prox Trans): 2.6 cm IVSd: 1.3 cm LVPWd: 1.4 cm LV cramer. diameter/BSA (cm/m^2): 2.8 LV sys. diameter/BSA (cm/m^2): 2.3 LA A2 area: 30.1 cm2 RA long axis: 5.7 cm LA A4 area: 26.5 cm2 RA area: 23.4 cm2 LA length (vol): 6.4 cm RA vol: 81.3 ml LA vol: 105.1 ml RA : 52.3 ml/m2 LA vol index: 67.6 ml/m2 IVC diam: 1.5 cm RVD1 (basal): 3.9 cm RVD2 (mid): 3.3 cm TAPSE: 2.4 cm Doppler Measurements & Calculations Ao V2 max: 106.4 cm/sec LVOT Max Esdras: 77.2 cm/sec Ao V2 mean: 67.5 cm/sec LV V1 max P.4 mmHg Ao max P.5 mmHg LV V1 VTI: 16.1 cm Ao mean P.1 mmHg GILBERT(I,D): 3.1 cm2 Ao V2 VTI: 20.3 cm GILBERT(V,D): 2.8 cm2 sev ratio: 0.80 GILBERT indexed to BSA (cm^2/m^2): 2.0 MV E max esdras: 47.8 cm/sec PA V2 max: 83.6 cm/sec MV A max esdras: 70.6 cm/sec PA V2 mean: 55.7 cm/sec MV E/A: 0.68 PA mean P.4 mmHg Med Peak E' Esdras: 5.7 cm/sec PA pr(Accel): 39.6 mmHg E/E' med: 8.4 Lat Peak E' Esdras: 3.4 cm/sec E/E' lat: 14.2 E/e' average: 11.3 MV dec time: 0.26 sec SV(LVOT): 62.4 ml Reading Physician:11:42 AM
[2022-01-05] MEDS: ONDANSETRON 4 MG/2 ML INJ IV ×2 (05:40→13:12)
[2022-01-05 07:20] LABS: Add Manual Diff / Slide Review NO; Basophils Absolute Auto 0 /uL (0-100); Basophils Percent Auto 0.1 % (0-2); Eosinophils Absolute Auto 0 /uL (0-450); Eosinophils Percent Auto 0.2 % (2-4); Hematocrit 36.3 % (36-46); Hemoglobin 12.3 g/dL (12.0-16.0); Lymphocytes Absolute Auto 900 /uL (1100-4500); Lymphocytes Percent Auto 9.7 % (25-40); Mean Corpuscular HGB Conc 33.8 % (30-36); Mean Corpuscular Hemoglobin 30.9 PG (26-34); Mean Corpuscular Volume 91.3 fL (80-100); Monocytes Absolute Auto 800 /uL (0-900); Monocytes Percent Auto 7.8 % (3-14); Neutrophils Absolute Auto 8000 /uL (1500-7000); Neutrophils Percent Auto 82.2 % (50-75); Platelet Count 168 X10^3/uL (150-400); Red Blood Cell Count 3.98 X10^6/uL (4.0-5.2); Red Cell Distribution Width 13.6 % (11.6-14.8); White Blood Cell Count 9.7 X10^3/uL (4.5-11.0)
[2022-01-05] MEDS: FUROSEMIDE 40 MG/4 ML VIAL IV (07:25)
[2022-01-05 07:34] LABS: Alanine Aminotransferase 11 IU/L (<35); Albumin 3.2 g/dL (3.5-5.0); Albumin Globulin Ratio 1.1 (1.0-2.8); Alkaline Phosphatase 67 U/L (38-126); Aspartate Aminotransferase 22 IU/L (14-36); Bilirubin Total 1.1 mg/dL (0.2-1.3); Bilirubin Unconjugated 1.1 mg/dL (0.0-1.1); HEMOLYSIS < 15 (0-50); Total Protein 6.2 g/dL (6.3-8.2)
[2022-01-05 07:35] LABS: BUN Creatinine Ratio 16.5 (6-22); Blood Urea Nitrogen 14 mg/dL (7-17); Calcium 8.9 mg/dL (8.4-10.2); Carbon Dioxide 29 mmol/L (22-32); Chloride 97 mmol/L (98-107); Estimated Glomerular Filt Rate > 60 mL/min (>60); Glucose 115 mg/dL (80-110); HEMOLYSIS < 15 (0-50); Potassium 4.5 mmol/L (3.4-5.1); Sodium 131 mmol/L (137-145)
--- NOTE | 2022-01-05 07:54 | PC.NURSE ---
Pt noted to be 86% RA. placed on 2L. pt at 94% via 2L O2
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
[2022-01-05] MEDS: HEPARIN 5,000 UNIT/ML VIAL 5000 UNIT SUBCUT ×2 (09:47→21:08)
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
[2022-01-05 15:02] LABS: COVID19 -Nasal RAPID Negative (Negative)
[2022-01-05] MEDS: MECLIZINE HCL 12.5 MG TABLET 25 MG PO ×2 (18:17→21:08)
[2022-01-05] MEDS: cefTRIAXone 1,000 MG in SODIUM CHLORIDE 0.9% 100 ML 200 MG IV (21:08)
[2022-01-05] MEDS: SODIUM CHLORIDE 0.9% FLUSH 10 ML IV (21:59)
[2022-01-06] VITALS (10 sets, daily range): BP systolic 98–172; BP diastolic 58–92; PULSE 69–126; RESP 16–23; TEMP 36.1–36.7; O2SAT 97–99
[2022-01-06] MEDS: AZITHROMYCIN 500 MG in DEXTROSE 5% IN WATER 250 ML 250 MG IV ×2 (00:11→22:21)
[2022-01-06] MEDS: ACETAMINOPHEN 325 MG TABLET 650 MG PO ×2 (00:11→13:30)
[2022-01-06] MEDS: OXYCODONE IR 5 MG TABLET PO (00:12)
--- NOTE | 2022-01-06 06:16 | DI.RAD.S_ITS ---
PROCEDURE: XR CHEST 1V INDICATIONS: sob, tachy TECHNIQUE: One view of the chest was acquired. COMPARISON: [facility], CR, XR CHEST 1V, 01/04/2022, 16:07. FINDINGS: Surgical changes and devices: None. Lungs and pleura: There is increased retrocardiac opacity. Nodular mid thorax opacity is unchanged. Mild appearance of increased pulmonary vascularity. Mediastinum: Mediastinal contours appear normal. Heart size is enlarged. Bones and chest wall: No suspicious bony lesions. Overlying soft tissues appear unremarkable. IMPRESSION: Persistent retrocardiac opacities suggestive of pneumonia. Underlying effusion and/or atelectasis cannot be excluded. Mild increased vascularity. Dictated by: Ruchi Arellano M.D. on 01/06/2022 at 8:21 Approved by: Ruchi Arellano M.D. on 01/06/2022 at 8:22
[2022-01-06] MEDS: METOPROLOL ER 25 MG TABLET PO ×2 (07:04→20:32)
[2022-01-06 07:37] LABS: Hematocrit 41.3 % (36-46); Hemoglobin 14.2 g/dL (12.0-16.0); Lactate (Lactic Acid) 1.6 mmol/L (0.7-2.1); Mean Corpuscular HGB Conc 34.3 % (30-36); Mean Corpuscular Hemoglobin 31.4 PG (26-34); Mean Corpuscular Volume 91.8 fL (80-100); Platelet Count 187 X10^3/uL (150-400); Red Cell Distribution Width 13.6 % (11.6-14.8)
[2022-01-06 07:38] LABS: Alanine Aminotransferase 14 IU/L (<35); Albumin 3.4 g/dL (3.5-5.0); Alkaline Phosphatase 73 U/L (38-126); Aspartate Aminotransferase 28 IU/L (14-36); BUN Creatinine Ratio 15.1 (6-22); Bilirubin Total 0.8 mg/dL (0.2-1.3); Blood Urea Nitrogen 16 mg/dL (7-17); Calcium 9.4 mg/dL (8.4-10.2); Carbon Dioxide 34 mmol/L (22-32); Chloride 95 mmol/L (98-107); Estimated Glomerular Filt Rate 52 mL/min (>60); Globulin 3.4 g/dL (1.7-4.1); Glucose 109 mg/dL (80-110); HEMOLYSIS 15 (0-50); Potassium 3.8 mmol/L (3.4-5.1); Sodium 134 mmol/L (137-145); Total Protein 6.8 g/dL (6.3-8.2)
[2022-01-06 07:49] LABS: NT-proBNP (BNP-Adult 18+) 12300 pg/mL (<450); Troponin I 0.049 ng/mL (0.01-0.034)
[2022-01-06 08:09] LABS: TSH w/ Reflex to FT4 7.62 uIU/mL (0.47-4.68)
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
[2022-01-06 08:45] LABS: Magnesium 1.9 mg/dL (1.6-2.3)
[2022-01-06 08:52] LABS: Free T4, Direct Thyroxine 1.34 ng/dL (0.78-2.19)
[2022-01-06] MEDS: MECLIZINE HCL 12.5 MG TABLET 25 MG PO ×3 (10:00→20:32)
[2022-01-06] MEDS: HEPARIN 5,000 UNIT/ML VIAL 5000 UNIT SUBCUT ×2 (10:00→20:32)
[2022-01-06] MEDS: FUROSEMIDE 40 MG/4 ML VIAL IV ×2 (10:00→20:32)
[2022-01-06] MEDS: FLUoxetine 20 MG CAPSULE PO (10:01)
[2022-01-06] MEDS: SODIUM CHLORIDE 0.9% FLUSH 10 ML IV ×2 (10:01→20:33)
[2022-01-06] MEDS: LEVOTHYROXINE 100 MCG TABLET PO (10:03)
[2022-01-06 10:07] LABS: Troponin I 0.053 ng/mL (0.01-0.034)
--- NOTE | 2022-01-06 11:47 | CM.DANOTE ---
Initial Discharge Planning Note: Case received, EMR reviewed. Introduced self and role. Payer: [facility] MCR and Medicaid 81 year old single female, admitted yesterday with nausea, vertigo, sob, A fib and rib fractures. She lives in [place] (2nd floor apartment) with a friend. She states she is normally independent and cares for self. She does not drive. She has access to walker and shower seat at home. She has a grandchild who assists her as needed. PT to see again this morning. Plan: Follow closely for discharge needs. [place] Discharge Planning/Care Management CM Discharge Assessment Start: 01/06/22 11:45 Freq: Status: Active Protocol: Document 01/06/22 11:46 (Rec: 01/06/22 11:47 [id number]) Discharge Planning Assessment Assigned Metallurgical Specialist Oly Hoskins RN/DCP Advance Directives? No Advance Directives on File No History Provided By Patient,Medical Record Prior Living Arrangements Apartment/Condo Household Members friend(s) Type of transporation used prior to Relies on Others admit Independent with ADL's Yes Is patient alert and oriented? Yes Caregiver for Another No Barriers to Discharge No Discharge Plan Home Transportation Arrangement Granddaughter or friend Referrals Initiated None needed Additional Comment She does not have current P.T. orders as of yet. Hospitalist will need to see patient. Whiteboard Updated in Patient Room with Yes name and ext. # of Metallurgical Specialist Review Status In Process Next Review Type Continued Stay Review
[2022-01-06] MEDS: ONDANSETRON 4 MG/2 ML INJ IV (13:29)
--- NOTE | 2022-01-06 13:41 | PT-IP ANOTE ---
Pt sleeping upon arrival, per RN okay to hold due to pt elevated troponin, BNP, and was in Afib w/ RVR earlier.
[2022-01-06 16:21] LABS: Troponin I 0.056 ng/mL (0.01-0.034)
[2022-01-06 17:54] LABS: Appearance Urine UA CLEAR; Bilirubin Urine UA NEGATIVE (NEGATIVE); Color Urine UA YELLOW; Glucose Urine UA NEGATIVE (Negative); Ketones Urine UA NEGATIVE (NEGATIVE); Leukocyte Esterase Urine UA NEGATIVE (NEGATIVE); Nitrite Urine UA NEGATIVE (Negative); Occult Blood Urine UA 2+ (Negative); Protein Urine UA NEGATIVE (Negative); Urobilinogen Urine UA 0.2 E.U./dL (0.2)
[2022-01-06] MEDS: FLUoxetine 10 MG CAPSULE PO (17:56)
[2022-01-06 18:09] LABS: Bacteria Urine Occasional (0-1); Culture Indicated Urine Cult Not Indicated; RBC Urine 1-5/HPF (0-5/HPF); Squamous Epithelial Cell Urine None Seen (0-5/HPF); WBC Urine 1-5/HPF (0-5/HPF)
[2022-01-06] MEDS: cefTRIAXone 1,000 MG in SODIUM CHLORIDE 0.9% 100 ML 200 MG IV (20:29)
[2022-01-06] MEDS: MORPHINE ER 30 MG TABLET PO (20:32)
[2022-01-06] MEDS: SODIUM CHLORIDE 0.9% 250 ML 21 ML IV (20:33)
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
[2022-01-06 21:32] LABS: Troponin I 0.058 ng/mL (0.01-0.034)
[2022-01-06] MEDS: MORPHINE 2 MG/ML INJ 1 MG IV (22:22)
[2022-01-07] VITALS (15 sets, daily range): BP systolic 85–134; BP diastolic 34–72; PULSE 59–93; RESP 14–17; TEMP 35.8–36.8; O2SAT 95–98
[2022-01-07] MEDS: LEVOTHYROXINE 100 MCG TABLET PO (06:23)
[2022-01-07] MEDS: ACETAMINOPHEN 325 MG TABLET 650 MG PO ×3 (06:23→21:27)
[2022-01-07 07:25] LABS: Add Manual Diff / Slide Review NO; Basophils Absolute Auto 0 /uL (0-100); Basophils Percent Auto 0.4 % (0-2); Eosinophils Absolute Auto 200 /uL (0-450); Eosinophils Percent Auto 1.7 % (2-4); Hematocrit 39.2 % (36-46); Hemoglobin 13.2 g/dL (12.0-16.0); Lymphocytes Absolute Auto 1500 /uL (1100-4500); Lymphocytes Percent Auto 15.4 % (25-40); Mean Corpuscular HGB Conc 33.8 % (30-36); Mean Corpuscular Hemoglobin 30.9 PG (26-34); Mean Corpuscular Volume 91.4 fL (80-100); Monocytes Absolute Auto 1000 /uL (0-900); Neutrophils Absolute Auto 7200 /uL (1500-7000); Neutrophils Percent Auto 72.5 % (50-75); Platelet Count 210 X10^3/uL (150-400); Red Blood Cell Count 4.28 X10^6/uL (4.0-5.2); Red Cell Distribution Width 13.8 % (11.6-14.8)
[2022-01-07 07:31] LABS: Blood Urea Nitrogen 29 mg/dL (7-17); Calcium 8.9 mg/dL (8.4-10.2); Carbon Dioxide 35 mmol/L (22-32); Chloride 95 mmol/L (98-107); Estimated Glomerular Filt Rate 38 mL/min (>60); Glucose 89 mg/dL (80-110); HEMOLYSIS 28 (0-50); Potassium 4.3 mmol/L (3.4-5.1); Sodium 133 mmol/L (137-145)
[2022-01-07] MEDS: POTASSIUM CHLORIDE 20 MEQ TAB PO (08:51)
[2022-01-07] MEDS: MECLIZINE HCL 12.5 MG TABLET 25 MG PO ×3 (08:51→21:28)
[2022-01-07] MEDS: MORPHINE ER 30 MG TABLET PO ×2 (08:52→21:28)
[2022-01-07] MEDS: HEPARIN 5,000 UNIT/ML VIAL 5000 UNIT SUBCUT ×2 (08:53→21:27)
[2022-01-07] MEDS: FLUoxetine 20 MG CAPSULE PO (08:53)
[2022-01-07] MEDS: METOPROLOL ER 25 MG TABLET PO (08:54)
[2022-01-07] MEDS: MULTIVITAMIN 1 TABLET 1 TAB PO (08:54)
[2022-01-07] MEDS: SODIUM CHLORIDE 0.9% FLUSH 10 ML IV ×3 (08:58→21:50)
[2022-01-07] MEDS: FUROSEMIDE 40 MG/4 ML VIAL IV (09:03)
[2022-01-07] MEDS: OXYCODONE IR 5 MG TABLET PO ×2 (09:53→17:25)
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
[2022-01-07 11:19] LABS: Troponin I 0.054 ng/mL (0.01-0.034)
--- NOTE | 2022-01-07 11:59 | PT.IPTN ---
Current Diagnoses Acute on chronic diastolic (congestive) heart failure (01/04/22) Physical Therapy Treatment Note M2 PT-IP Current Condition Start: 01/05/22 11:56 Freq: Status: Active Protocol: Document 01/05/22 11:57 BC (Rec: 01/05/22 12:30 BC [id number]) Physical Therapy Current Condition Current Condition Evaluation Date 01/05/22 Treatment Diagnosis Difficulty with ambulation Onset Date 01/04/22 M3 PT-IP Subjective Start: 01/05/22 11:56 Freq: Status: Active Protocol: Document 01/07/22 11:39 KS (Rec: 01/07/22 13:01 KS [id number]) Subjective Physical Therapy Visit Type Type Treatment Note Visit Start Time 11:39 Visit Stop Time 11:59 Total Visit Minutes 20 Number of CUSTOMER RESPONSE REPRESENTATIVE Visits 1 Physical Therapy Visit Comments Patient Comments Pt agreeable to mobilize. M4 PT-IP Mobility and Gait Start: 01/05/22 11:56 Freq: Status: Active Protocol: Document 01/07/22 11:39 KS (Rec: 01/07/22 13:01 KS [id number]) PT-Bed Mobility Assessment Supine to Sit Supine to Sit Minimal Assistance,1 Person Assistance,Head of Bed Elevated Scooting Scooting to Edge of Bed Contact Guard Assistance PT-Transfer Assessment Sit to and From Stand Sit to and from Stand Contact Guard Assistance,1 Person Assistance,Use of Upper Extremities Equipment Transfer Assistive Device Front Wheeled Walker Transfers Transfer Destination Chair Transfer Technique Pt ambulated w/ FWW Transfer Ability Level of Assist Contact Guard Assistance, Minimal Assistance Comments Mobility Comments Pt in bed upon arrival and agreeable to mobilize. BP: 107 /53 in supine. Pt Min A for sup<>sit and calls out due to rib pain w/ initial mobility. CGA for scooting EOB. Pt took seated rest break before ambulating ~6 ft to chair w/ FWW. Pt states she is unable to tolerate further ambulation due to increased rib pain of 10/10 w/ mobility. O2 96% and BP: 114/57. Pt refused additional sit<>stand for standing BP reading. Left in chair w/ all needs in reach. Gait Assessment Gait Gait Assistance Required: Contact Guard Assist,1 Person Assist Distance (Feet) 6 Assistive Devices Assistive Device Gait Belt,Front Wheeled Walker Gait Deviations General Gait Pattern Decreased Stride Length, Decreased Feet Clearance, Flexed Trunk,Wide Based Gait Factors Limiting Gait Function Factors Limiting Gait Function Decreased Activity Tolerance, Pain Comments Gait Comments Only able to ambulate 6 ft due to rib pain. Required min A for FWW mgmt. PT-Balance Assessment Sitting Balance and Reactions Static Sitting Balance Ability Normal Dynamic Sitting Balance Ability Good Standing Balance and Reactions Static Standing Balance Ability Good Dynamic Standing Balance Ability Good Device Used FWW Comments Other Balance Tests/Deviations/Treatment Pt reported slight dizziness : upon standing but was not willing to remain standing for BP reading. BP did not decrease following transfer. M5 PT-IP Objective Assessments Start: 01/05/22 11:56 Freq: Status: Active Protocol: Document 01/05/22 11:57 BC (Rec: 01/05/22 12:30 BC [id number]) Orientation Orientation/Cognition Level of Alertness Alert Orientation Name,Date,Place,Situation Safety Awareness Understands Safety Issues Gross Range of Motion Upper Extremity ROM Assessment Left Impaired Impairments LUE reduced shoulder ROM due to L sided rib pain at final degrees of motion Lower Extremity ROM Assessment Within Functional Limits Strength Upper Extremity Strength Assessment Left Impaired Shoulder 3- Elbow 3 Wrist WFL Hand WFL Lower Extremity Strength Assessment Within Functional Limits Comments Strength Comments Pain limiting LUE ROM and strength. Coordination Assessment Gross Coordination Gross Coordination WNL Sensation Assessment Sensation Gross Sensation WNL Muscle Tone Muscle Tone WNL Yes M6 PT-IP Treatment Start: 01/05/22 11:56 Freq: Status: Active Protocol: Document 01/07/22 11:39 KS (Rec: 01/07/22 13:01 KS [id number]) Physical Therapy Treatment Education Education Provided Precautions,Safety M7 PT-IP Assessment and Plan Start: 01/05/22 11:56 Freq: Status: Active Protocol: Document 01/07/22 11:39 KS (Rec: 01/07/22 13:01 KS [id number]) PT Summary Assessment and Plan Potential Rehabilitation Potential Excellent Summary Impairments Pain,Strength,Balance,Bed Mobility,Transfers,Gait, Activity Tolerance Progress Towards Goals Slow Progress due to Pain,Slow Progress due to Medical Issues,Slow Progress due to Activity Tolerance Assessment Summary Pt limited in mobilty due to rib pain this AM, reporting 10 /10 pain w/ mobility. Min A for bed mobility and CGA to Min A for transfers and short distance ambulation for FWW mgmt. Pt seems strong enough to perform additional therapy, but refused due to pain. Will continue to assess progress. Goals Bed Mobility Goal Independent Transfer Goal Independent,Front Wheeled Walker Gait Goal Independent,Front Wheel Walker Gait Distance 150 Other Goals Pt will ascend/descend 16 steps with railing and SBA. Days to Meet Goals 5 Frequency of Treatment Frequency Of Treatment Once a Day Treatment Plan Physical Therapy Treatment Plan Bed Mobility Training,Transfer Training,Gait Training, Therapeutic Exercise,Balance Retraining,Discharge Planning, Neuromuscular Re-ed Precautions Other Precautions Using log roll technique for sit<>supine Recommendations To Nursing Amount of Assist Needed 1 Person Assist Discharge Recommendations PT Discharge Recommendations Home vs SNF Other Discharge Recommendations Anticipate increased assist if mobility remains at level of today's eval in ED. Transportation Needs at Discharge Private Vehicle,Wheelchair/ Cabulance
[2022-01-07] MEDS: methocarbamoL 500 MG TABLET PO ×2 (13:28→21:28)
--- NOTE | 2022-01-07 15:59 | PC.NURSE ---
Pt is hypotensive and dizzy, held orthostatic BPs due to pt not being able to tolerate. Spoke to Dr. Mckeon. Reasses pt in one hour and hold BP meds and Lasix.
[2022-01-07] MEDS: FLUoxetine 10 MG CAPSULE PO (17:26)
[2022-01-07] MEDS: SODIUM CHLORIDE 0.9% 250 ML 1000 ML IV (18:03)
[2022-01-07] MEDS: SODIUM CHLORIDE 0.9% 500 ML 1000 ML IV (18:52)
--- NOTE | 2022-01-07 18:58 | PC.NURSE ---
patient on trendelenburg BP 98/42, 500ml bolus infusing.
[2022-01-07 21:00] LABS: Hematocrit 34.9 % (36-46); Hemoglobin 11.6 g/dL (12.0-16.0); Mean Corpuscular HGB Conc 33.4 % (30-36); Mean Corpuscular Hemoglobin 30.7 PG (26-34); Mean Corpuscular Volume 91.8 fL (80-100); Platelet Count 187 X10^3/uL (150-400); Red Cell Distribution Width 13.6 % (11.6-14.8); White Blood Cell Count 7.5 X10^3/uL (4.5-11.0)
[2022-01-07 21:09] LABS: Alanine Aminotransferase 17 IU/L (<35); Albumin 2.6 g/dL (3.5-5.0); Alkaline Phosphatase 94 U/L (38-126); Aspartate Aminotransferase 26 IU/L (14-36); BUN Creatinine Ratio 24.3 (6-22); Bilirubin Total 0.3 mg/dL (0.2-1.3); Blood Urea Nitrogen 33 mg/dL (7-17); Calcium 8.3 mg/dL (8.4-10.2); Carbon Dioxide 31 mmol/L (22-32); Chloride 99 mmol/L (98-107); Estimated Glomerular Filt Rate 39 mL/min (>60); Globulin 2.6 g/dL (1.7-4.1); Glucose 87 mg/dL (80-110); HEMOLYSIS < 15 (0-50); Potassium 4.5 mmol/L (3.4-5.1); Sodium 135 mmol/L (137-145); Total Protein 5.2 g/dL (6.3-8.2)
[2022-01-07 21:18] LABS: Procalcitonin 0.15 ng/mL (<0.5)
[2022-01-08] VITALS (7 sets, daily range): BP systolic 96–139; BP diastolic 42–70; PULSE 62–74; RESP 14–18; TEMP 35.6–36.9; O2SAT 95–98
[2022-01-08] MEDS: ACETAMINOPHEN 325 MG TABLET 650 MG PO ×2 (05:43→18:26)
[2022-01-08] MEDS: OXYCODONE IR 5 MG TABLET PO ×4 (05:43→23:42)
[2022-01-08] MEDS: LEVOTHYROXINE 100 MCG TABLET PO (05:44)
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
[2022-01-08 08:01] LABS: Add Manual Diff / Slide Review NO; Basophils Absolute Auto 0 /uL (0-100); Basophils Percent Auto 0.1 % (0-2); Eosinophils Absolute Auto 200 /uL (0-450); Eosinophils Percent Auto 2.9 % (2-4); Hematocrit 36.4 % (36-46); Hemoglobin 12.2 g/dL (12.0-16.0); Lymphocytes Absolute Auto 1400 /uL (1100-4500); Lymphocytes Percent Auto 17.6 % (25-40); Mean Corpuscular HGB Conc 33.7 % (30-36); Mean Corpuscular Hemoglobin 30.9 PG (26-34); Mean Corpuscular Volume 91.9 fL (80-100); Monocytes Absolute Auto 700 /uL (0-900); Monocytes Percent Auto 8.8 % (3-14); Neutrophils Absolute Auto 5800 /uL (1500-7000); Neutrophils Percent Auto 70.6 % (50-75); Platelet Count 183 X10^3/uL (150-400); Red Blood Cell Count 3.96 X10^6/uL (4.0-5.2); White Blood Cell Count 8.2 X10^3/uL (4.5-11.0)
[2022-01-08 08:14] LABS: Blood Urea Nitrogen 29 mg/dL (7-17); Calcium 8.7 mg/dL (8.4-10.2); Carbon Dioxide 34 mmol/L (22-32); Chloride 99 mmol/L (98-107); Estimated Glomerular Filt Rate 45 mL/min (>60); Glucose 99 mg/dL (80-110); HEMOLYSIS < 15 (0-50); Potassium 4.2 mmol/L (3.4-5.1); Sodium 135 mmol/L (137-145)
[2022-01-08] MEDS: FLUoxetine 20 MG CAPSULE PO (08:26)
[2022-01-08] MEDS: MULTIVITAMIN 1 TABLET 1 TAB PO (08:26)
[2022-01-08] MEDS: POTASSIUM CHLORIDE 20 MEQ TAB PO (08:26)
[2022-01-08] MEDS: SODIUM CHLORIDE 0.9% FLUSH 10 ML IV ×2 (08:27→23:12)
[2022-01-08] MEDS: MORPHINE ER 30 MG TABLET PO ×2 (08:38→21:13)
[2022-01-08] MEDS: MECLIZINE HCL 12.5 MG TABLET 25 MG PO ×3 (08:39→21:13)
[2022-01-08] MEDS: HEPARIN 5,000 UNIT/ML VIAL 5000 UNIT SUBCUT ×2 (08:39→21:14)
[2022-01-08] MEDS: SENNOSIDES 8.6 MG TABLET PO ×2 (10:19→21:14)
[2022-01-08] MEDS: polyethylene glycoL 3350 17 GM POWD.PACK PO (10:20)
[2022-01-08] MEDS: cefTRIAXone 1,000 MG in SODIUM CHLORIDE 0.9% 100 ML 200 MG IV (10:21)
--- NOTE | 2022-01-08 10:46 | PT.IPTN ---
Current Diagnoses Acute on chronic diastolic (congestive) heart failure (01/04/22) Physical Therapy Treatment Note M2 PT-IP Current Condition Start: 01/05/22 11:56 Freq: Status: Active Protocol: Document 01/05/22 11:57 BC (Rec: 01/05/22 12:30 BC [id number]) Physical Therapy Current Condition Current Condition Evaluation Date 01/05/22 Treatment Diagnosis Difficulty with ambulation Onset Date 01/04/22 M3 PT-IP Subjective Start: 01/05/22 11:56 Freq: Status: Active Protocol: Document 01/08/22 10:46 AW (Rec: 01/08/22 11:56 AW [id number]) Subjective Physical Therapy Visit Type Type Treatment Note Visit Start Time 10:14 Visit Stop Time 10:46 Total Visit Minutes 32 Number of BOWLING BALL PATCHER Visits 0 Physical Therapy Visit Comments Patient Comments Pt agreeable to mobilize. Therapy Pain Assessment Pain When Pain Assessed During Mobility Location left chest and back Intensity 6 Scale Used Numeric (0 - 10) M4 PT-IP Mobility and Gait Start: 01/05/22 11:56 Freq: Status: Active Protocol: Document 01/08/22 10:46 AW (Rec: 01/08/22 11:56 AW [id number]) PT-Bed Mobility Assessment Rolling Type of Rolling Log Rolling,Roll to Right Level of Assist Standby Assistance Supine to Sit Supine to Sit Contact Guard Assistance,1 Person Assistance,Head of Bed Elevated Sit to Supine Sit to Supine Minimal Assistance Scooting Scooting to Edge of Bed Standby Assistance PT-Transfer Assessment Sit to and From Stand Sit to and from Stand Standby Assistance,Use of Upper Extremities Equipment Transfer Assistive Device Gait Belt,4 Wheeled Walker Transfers Transfer Destination Bed,Toilet Transfer Technique Pt ambulated w/ 4WW Transfer Ability Level of Assist Contact Guard Assistance,Use of Upper Extremities Comments Mobility Comments Pt was lying in bed as PT arrived. BP 108/44 HR 67. She was able to roll to her right side SBA and sit up CGA. Sitting BP 113/52 HR 71. She stood SBA. Standing BP was 105 /51 HR 74. She used 4WW to ambulate to the toilet, transferring SBA with use of grab bars. Because of limitation with her LUE, she needed assist to manage her briefs. She ambulated 40 feet to the hallway stairs. After stairs assessment, she returned to the room with 4WW and returned to supine min A x 1. BP after activity was 134/ 52 HR 67. Gait Assessment Gait Gait Assistance Required: Contact Guard Assist,1 Person Assist Distance (Feet) 60 Assistive Devices Assistive Device Gait Belt,4 Wheeled Walker Orthotic/Prosthetic Devices or Brace: No Gait Deviations General Gait Pattern Decreased Stride Length, Decreased Feet Clearance, Flexed Trunk,Wide Based Gait Factors Limiting Gait Function Factors Limiting Gait Function Decreased Activity Tolerance, Pain Comments Gait Comments See mobility comments for details. Stair Climbing Assessment Evaluation Level of Assist On Stairs Contact Guard Assistance,1 Person Assistance Devices Stair Climbing Assistive Devices Right Railing Technique/Endurance Stair Climbing Direction Ascend and Descend Stair Climbing Technique Step to Step Number of Steps Climbed 6 Stair Climbing Set # Repetitions (reps) 1 Comments Stair Climbing Comments Pt used the right rail to descend 6 steps. She faced the rail and stepped down sideways as she states she does at home. However, LUE limitations were challenging, especially on ascent when pt faced R rail ascending and needed more LUE elevation. Recommended pt use R rail to descend and L rail to ascend to limit need for LUE flexion. Pt needed seated rest break on 4WW seat before returning to the room. PT-Balance Assessment Sitting Balance and Reactions Static Sitting Balance Ability Normal Dynamic Sitting Balance Ability Good Standing Balance and Reactions Static Standing Balance Ability Good Dynamic Standing Balance Ability Good Device Used FWW M5 PT-IP Objective Assessments Start: 01/05/22 11:56 Freq: Status: Active Protocol: Document 01/05/22 11:57 BC (Rec: 01/05/22 12:30 BC [id number]) Orientation Orientation/Cognition Level of Alertness Alert Orientation Name,Date,Place,Situation Safety Awareness Understands Safety Issues Gross Range of Motion Upper Extremity ROM Assessment Left Impaired Impairments LUE reduced shoulder ROM due to L sided rib pain at final degrees of motion Lower Extremity ROM Assessment Within Functional Limits Strength Upper Extremity Strength Assessment Left Impaired Shoulder 3- Elbow 3 Wrist WFL Hand WFL Lower Extremity Strength Assessment Within Functional Limits Comments Strength Comments Pain limiting LUE ROM and strength. Coordination Assessment Gross Coordination Gross Coordination WNL Sensation Assessment Sensation Gross Sensation WNL Muscle Tone Muscle Tone WNL Yes M6 PT-IP Treatment Start: 01/05/22 11:56 Freq: Status: Active Protocol: Document 01/08/22 10:46 AW (Rec: 01/08/22 11:56 AW [id number]) Physical Therapy Treatment Education Education Provided Precautions,Safety M7 PT-IP Assessment and Plan Start: 01/05/22 11:56 Freq: Status: Active Protocol: Document 01/08/22 10:46 AW (Rec: 01/08/22 11:56 AW [id number]) PT Summary Assessment and Plan Potential Rehabilitation Potential Excellent Status of Condition at Evaluation Evolving Summary Impairments Pain,Strength,Balance,Bed Mobility,Transfers,Gait, Activity Tolerance Progress Towards Goals Progressing Toward Goals,Slow Progress due to Pain Assessment Summary Pt had only slight dizziness sitting up today but less than yesterday. Orthostatic BPs were negative. Pt was able to safely use 4WW for ambulation and for seated rest break today. Goals Bed Mobility Goal Independent Transfer Goal Independent,Front Wheeled Walker Gait Goal Independent,Front Wheel Walker Gait Distance 150 Other Goals Pt will ascend/descend 16 steps with railing and SBA. Days to Meet Goals 5 Frequency of Treatment Frequency Of Treatment Once a Day Treatment Plan Physical Therapy Treatment Plan Bed Mobility Training,Transfer Training,Gait Training, Therapeutic Exercise,Balance Retraining,Discharge Planning, Neuromuscular Re-ed Other Recommendations and Next Treatment continue to assess with 4WW. Focus revisit stairs as able. Precautions Other Precautions Using log roll technique for sit<>supine Recommendations To Nursing Amount of Assist Needed 1 Person Assist Discharge Recommendations PT Discharge Recommendations Home vs SNF Transportation Needs at Discharge Private Vehicle,Wheelchair/ Cabulance
[2022-01-08] MEDS: LIDOCAINE PATCH 1 EACH ADH..PATCH TOP (16:06)
[2022-01-08] MEDS: FLUoxetine 10 MG CAPSULE PO (16:07)
[2022-01-09] VITALS (7 sets, daily range): BP systolic 115–148; BP diastolic 48–68; PULSE 65–92; RESP 18; TEMP 36.1–37.1; O2SAT 93–95
[2022-01-09] MEDS: LEVOTHYROXINE 100 MCG TABLET PO (06:33)
[2022-01-09] MEDS: OXYCODONE IR 5 MG TABLET PO ×2 (07:07→16:20)
[2022-01-09 07:20] LABS: Add Manual Diff / Slide Review NO; Basophils Absolute Auto 0 /uL (0-100); Basophils Percent Auto 0.6 % (0-2); Eosinophils Absolute Auto 300 /uL (0-450); Eosinophils Percent Auto 3.7 % (2-4); Hematocrit 35.7 % (36-46); Lymphocytes Absolute Auto 1600 /uL (1100-4500); Lymphocytes Percent Auto 21.1 % (25-40); Mean Corpuscular HGB Conc 33.6 % (30-36); Mean Corpuscular Hemoglobin 30.7 PG (26-34); Mean Corpuscular Volume 91.4 fL (80-100); Monocytes Absolute Auto 700 /uL (0-900); Monocytes Percent Auto 9.1 % (3-14); Neutrophils Absolute Auto 5000 /uL (1500-7000); Neutrophils Percent Auto 65.5 % (50-75); Platelet Count 201 X10^3/uL (150-400); Red Blood Cell Count 3.91 X10^6/uL (4.0-5.2); White Blood Cell Count 7.7 X10^3/uL (4.5-11.0)
[2022-01-09 07:34] LABS: BUN Creatinine Ratio 24.5 (6-22); Blood Urea Nitrogen 26 mg/dL (7-17); Calcium 9.1 mg/dL (8.4-10.2); Carbon Dioxide 33 mmol/L (22-32); Chloride 100 mmol/L (98-107); Estimated Glomerular Filt Rate 52 mL/min (>60); Glucose 93 mg/dL (80-110); HEMOLYSIS < 15 (0-50); Potassium 4.7 mmol/L (3.4-5.1); Sodium 135 mmol/L (137-145)
[2022-01-09] MEDS: MORPHINE ER 30 MG TABLET PO ×2 (08:58→21:49)
[2022-01-09] MEDS: MECLIZINE HCL 12.5 MG TABLET 25 MG PO ×3 (08:59→21:49)
[2022-01-09] MEDS: APIXABAN 5 MG TABLET 2.5 MG PO ×2 (09:38→21:49)
[2022-01-09] MEDS: MULTIVITAMIN 1 TABLET 1 TAB PO (09:38)
[2022-01-09] MEDS: FLUoxetine 20 MG CAPSULE PO (09:38)
[2022-01-09] MEDS: METOPROLOL IR 25 MG TABLET 12.5 MG PO ×2 (09:39→21:50)
[2022-01-09] MEDS: polyethylene glycoL 3350 17 GM POWD.PACK PO (09:39)
[2022-01-09] MEDS: LIDOCAINE PATCH 1 EACH ADH..PATCH TOP ×2 (09:39→16:55)
[2022-01-09] MEDS: SODIUM CHLORIDE 0.9% FLUSH 10 ML IV ×2 (09:39→21:57)
[2022-01-09] MEDS: SENNOSIDES 8.6 MG TABLET PO ×2 (09:39→21:49)
[2022-01-09] MEDS: cefTRIAXone 1,000 MG in SODIUM CHLORIDE 0.9% 100 ML 200 MG IV (09:44)
[2022-01-09] MEDS: POTASSIUM CHLORIDE 20 MEQ TAB PO (09:49)
--- NOTE | 2022-01-09 12:10 | PT.IPTN ---
Current Diagnoses Acute on chronic diastolic (congestive) heart failure (01/04/22) Physical Therapy Treatment Note M2 PT-IP Current Condition Start: 01/05/22 11:56 Freq: Status: Active Protocol: Document 01/05/22 11:57 BC (Rec: 01/05/22 12:30 BC [id number]) Physical Therapy Current Condition Current Condition Evaluation Date 01/05/22 Treatment Diagnosis Difficulty with ambulation Onset Date 01/04/22 M3 PT-IP Subjective Start: 01/05/22 11:56 Freq: Status: Active Protocol: Document 01/09/22 12:10 AW (Rec: 01/09/22 12:39 AW [id number]) Subjective Physical Therapy Visit Type Type Treatment Note Visit Start Time 11:46 Visit Stop Time 12:10 Total Visit Minutes 24 Number of SALES PROFESSIONAL Visits 0 Physical Therapy Visit Comments Patient Comments Pt agreeable to mobilize. M4 PT-IP Mobility and Gait Start: 01/05/22 11:56 Freq: Status: Active Protocol: Document 01/09/22 12:10 AW (Rec: 01/09/22 12:39 AW [id number]) PT-Bed Mobility Assessment Rolling Type of Rolling Log Rolling,Roll to Right Level of Assist Contact Guard Assistance,1 Person Assistance Supine to Sit Supine to Sit Contact Guard Assistance Scooting Scooting to Edge of Bed Standby Assistance PT-Transfer Assessment Sit to and From Stand Sit to and from Stand Standby Assistance,Use of Upper Extremities Equipment Transfer Assistive Device Gait Belt,4 Wheeled Walker Transfers Transfer Destination Chair,Toilet Transfer Technique Pt ambulated w/ 4WW Transfer Ability Level of Assist Standby Assistance,Use of Upper Extremities Comments Mobility Comments Pt was lying in bed as PT arrived. BP 131/42 HR 64. She completed log roll to her right and sat up CGA with HOB flat. She demonstrated improved UE ROM as she donned her own robe. She stood SBA and used 4WW to ambulate 120 feet SBA. On return to the room, she went to the bathroom and completed toilet transfer SBA without need for UE support. She transferred to the chair where she remained for lunch with call light and tray table in reach. Gait Assessment Gait Gait Assistance Required: Standby Assistance Distance (Feet) 120 Assistive Devices Assistive Device Gait Belt,4 Wheeled Walker Orthotic/Prosthetic Devices or Brace: No Gait Deviations General Gait Pattern Decreased Stride Length, Decreased Feet Clearance, Flexed Trunk Factors Limiting Gait Function Factors Limiting Gait Function Decreased Activity Tolerance, Pain Comments Gait Comments See mobility comments for details. PT-Balance Assessment Sitting Balance and Reactions Static Sitting Balance Ability Normal Dynamic Sitting Balance Ability Good Standing Balance and Reactions Static Standing Balance Ability Good Dynamic Standing Balance Ability Good Device Used 4WW Comments Other Balance Tests/Deviations/Treatment No dizziness reported today. : VS were stable pre and post activity. M5 PT-IP Objective Assessments Start: 01/05/22 11:56 Freq: Status: Active Protocol: Document 01/05/22 11:57 BC (Rec: 01/05/22 12:30 BC [id number]) Orientation Orientation/Cognition Level of Alertness Alert Orientation Name,Date,Place,Situation Safety Awareness Understands Safety Issues Gross Range of Motion Upper Extremity ROM Assessment Left Impaired Impairments LUE reduced shoulder ROM due to L sided rib pain at final degrees of motion Lower Extremity ROM Assessment Within Functional Limits Strength Upper Extremity Strength Assessment Left Impaired Shoulder 3- Elbow 3 Wrist WFL Hand WFL Lower Extremity Strength Assessment Within Functional Limits Comments Strength Comments Pain limiting LUE ROM and strength. Coordination Assessment Gross Coordination Gross Coordination WNL Sensation Assessment Sensation Gross Sensation WNL Muscle Tone Muscle Tone WNL Yes M6 PT-IP Treatment Start: 01/05/22 11:56 Freq: Status: Active Protocol: Document 01/09/22 12:10 AW (Rec: 01/09/22 12:39 AW [id number]) Physical Therapy Treatment Education Education Provided Precautions,Safety M7 PT-IP Assessment and Plan Start: 01/05/22 11:56 Freq: Status: Active Protocol: Document 01/09/22 12:10 AW (Rec: 01/09/22 12:39 AW [id number]) PT Summary Assessment and Plan Potential Rehabilitation Potential Excellent Summary Impairments Pain,Strength,Balance,Bed Mobility,Transfers,Gait, Activity Tolerance Progress Towards Goals Progressing Toward Goals,Slow Progress due to Pain Assessment Summary Pt denied dizziness this date and was able to progress her ambulation distance to 120 feet with 4WW SBA. She will be safe to discharge home with assist and HH PT once medically stable. Goals Bed Mobility Goal Independent Transfer Goal Independent,Front Wheeled Walker Gait Goal Independent,Front Wheel Walker Gait Distance 150 Other Goals Pt will ascend/descend 16 steps with railing and SBA. Days to Meet Goals 5 Frequency of Treatment Frequency Of Treatment Once a Day Treatment Plan Physical Therapy Treatment Plan Bed Mobility Training,Transfer Training,Gait Training, Therapeutic Exercise,Balance Retraining,Discharge Planning, Neuromuscular Re-ed Other Recommendations and Next Treatment continue to assess with 4WW. Focus revisit stairs as able. Precautions Other Precautions Using log roll technique for sit<>supine Recommendations To Nursing Amount of Assist Needed Standby Assistance,1 Person Assist Discharge Recommendations PT Discharge Recommendations Home with Assistance,Home Health Transportation Needs at Discharge Private Vehicle
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
[2022-01-09] MEDS: FLUoxetine 10 MG CAPSULE PO (16:20)
--- NOTE | 2022-01-09 16:52 | PC.NURSE ---
Transition of Care This RN assumed care of patient at 1600. No report received from primary RN. Report received from mary.
[2022-01-09] MEDS: methocarbamoL 500 MG TABLET PO (23:45)
[2022-01-10] VITALS: BP 146/70; PULSE 64; RESP 18; TEMP 36.4; O2SAT 97
[2022-01-10 04:00] VITALS: BP 146/64; PULSE 62; RESP 18; TEMP 36.6; O2SAT 95
[2022-01-10] MEDS: LEVOTHYROXINE 100 MCG TABLET PO (06:41)
[2022-01-10] MEDS: ACETAMINOPHEN 325 MG TABLET 650 MG PO (07:01)
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
[2022-01-10 07:51] LABS: Add Manual Diff / Slide Review NO; Basophils Absolute Auto 100 /uL (0-100); Basophils Percent Auto 0.7 % (0-2); Eosinophils Absolute Auto 400 /uL (0-450); Eosinophils Percent Auto 3.7 % (2-4); Hematocrit 40.5 % (36-46); Hemoglobin 13.3 g/dL (12.0-16.0); Lymphocytes Absolute Auto 2000 /uL (1100-4500); Lymphocytes Percent Auto 21.1 % (25-40); Mean Corpuscular HGB Conc 32.8 % (30-36); Mean Corpuscular Hemoglobin 30.3 PG (26-34); Mean Corpuscular Volume 92.3 fL (80-100); Monocytes Absolute Auto 800 /uL (0-900); Monocytes Percent Auto 8.4 % (3-14); Neutrophils Absolute Auto 6400 /uL (1500-7000); Neutrophils Percent Auto 66.1 % (50-75); Platelet Count 248 X10^3/uL (150-400); Red Blood Cell Count 4.38 X10^6/uL (4.0-5.2); White Blood Cell Count 9.7 X10^3/uL (4.5-11.0)
[2022-01-10 08:00] VITALS: BP 150/64; PULSE 64; RESP 16; TEMP 36.8; O2SAT 97
[2022-01-10 08:16] LABS: BUN Creatinine Ratio 23.6 (6-22); Blood Urea Nitrogen 25 mg/dL (7-17); Calcium 9.7 mg/dL (8.4-10.2); Carbon Dioxide 31 mmol/L (22-32); Chloride 101 mmol/L (98-107); Estimated Glomerular Filt Rate 52 mL/min (>60); Glucose 95 mg/dL (80-110); HEMOLYSIS < 15 (0-50); Potassium 4.8 mmol/L (3.4-5.1); Sodium 136 mmol/L (137-145)
[2022-01-10] MEDS: POTASSIUM CHLORIDE 20 MEQ TAB PO (09:02)
[2022-01-10] MEDS: MULTIVITAMIN 1 TABLET 1 TAB PO (09:02)
[2022-01-10] MEDS: MECLIZINE HCL 12.5 MG TABLET 25 MG PO (09:02)
[2022-01-10] MEDS: FLUoxetine 20 MG CAPSULE PO (09:02)
[2022-01-10] MEDS: APIXABAN 5 MG TABLET 2.5 MG PO (09:02)
[2022-01-10] MEDS: SENNOSIDES 8.6 MG TABLET PO (09:02)
[2022-01-10] MEDS: MORPHINE ER 30 MG TABLET PO (09:03)
[2022-01-10] MEDS: polyethylene glycoL 3350 17 GM POWD.PACK PO (09:03)
[2022-01-10] MEDS: METOPROLOL IR 25 MG TABLET 12.5 MG PO (09:03)
[2022-01-10] MEDS: LIDOCAINE PATCH 1 EACH ADH..PATCH TOP ×2 (09:04)
[2022-01-10 09:40] VITALS: BP 117/70; BP 139/68; BP 150/64; PULSE 64; PULSE 80; PULSE 87
--- NOTE | 2022-01-10 11:02 | CM.DPC ---
DCP Cont: Patient has discharge orders for today. Met with patient in her room, discussed discharge. Patient is alert and oriented, somewhat hard of hearing. Confirmed that her son is picking her up today after work. She lives with her 15 year old grand daughter, she stated, she's not always here. Let her know that home health can be ordered for her, which is covered by her insurance. Did emphasize with her that they are not there every day. She is interested in home health, and has no preferences upon agencies. Did bring in Medicare Choice List. Called [facility], spoke to Jennifer. Stated, she was not sure if they accepted her [employer], and nursing could not come in until next week. Called [facility] and spoke to Denice. She confirmed they do accept [facility], and can possibly see patient tomorrow for nursing. Faxed her over the referral, including face sheet, face to face, orders (included RN, P.T, O.T, OPERATING ROOM NURSE, bath aide). Added DC Summary, H&P, and P.T. notes. Gave [facility]nagi patient's cell number so they can contact her. P: Patient has discharge orders for home with [facility]. Confirmed acceptance from [facility]. Harriett Vega, DIANA/[employer]
--- NOTE | 2022-01-10 11:15 | PT-IP ANOTE ---
Attempted to see pt this AM, pt refused PT stating she feels she has no further needs before d/c home this PM.
== END 2022-01-10 14:28 | disposition home health service (06) | DRG 291 ==
LOC: ED 20:54 → AC 22:52
PROVIDERS: Emergency Medicine; Family Medicine; Nurse Practitioner Critical Care Medicine; Student in an Organized Health Care Education/Training Program; Admitting Provider Internal Medicine; Emergency Provider Internal Medicine; Family Provider Family Medicine; PCP Family Medicine; Referring Provider Emergency Medicine; Visit Provider Internal Medicine
DX: I11.0 Hypertensive heart disease with heart failure (principal); J96.01 Acute respiratory failure with hypoxia; I50.23 Acute on chronic systolic (congestive) heart failure; J18.9 Pneumonia, unspecified organism; M80.0AXA Age-related osteoporosis with current pathological fracture, other site, initial encounter for fracture; K83.8 Other specified diseases of biliary tract; E03.9 Hypothyroidism, unspecified; I48.91 Unspecified atrial fibrillation; I95.9 Hypotension, unspecified; D64.9 Anemia, unspecified; Z20.822 Contact with and (suspected) exposure to COVID-19; Z87.891 Personal history of nicotine dependence
CPT/HCPCS: 36415; 71045; 71260; 74177; 74181; 76705; 80048; 80053; 80076; 81001; 81003; 82550; 83605; 83690; 83735; 83880; 84145; 84439; 84443; 84484; 85025; 85027; 85610; 85730; 87635; 93005; 93306; 94760; 96365; 96367; 96375; 96376; 97116; 97161; 97530; 99285; C9803; J0696; J1170; J1644; J1940; J2270; J2405; Q9967

== ENCOUNTER 2022-01-16 14:39 | Emergency (ER) | payer MEDICARE, MEDICAID, SELFPAY ==
[2022-01-05 15:38] VITALS: BMI 25.4
[2022-01-16 14:48] VITALS: BP 138/63; PULSE 88; RESP 22; TEMP 36.3; O2SAT 96
--- NOTE | 2022-01-16 14:57 | PC.NURSE ---
Patient had a large liquid stool, this CINNAMON GRINDER and Paramjit CINNAMON GRINDER changed patient, provided pericare and applied barrier cream.
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
[2022-01-16] MEDS: FLEETS ENEMA 1 EACH PR (15:20)
--- NOTE | 2022-01-16 15:28 | PC.NURSE ---
post enema large form stool passed
[2022-01-16 16:50] VITALS: BP 138/60; PULSE 86; RESP 12; O2SAT 99
== END 2022-01-16 16:51 | disposition home or self-care (01) ==
PROVIDERS: Emergency Provider Family Medicine Addiction Medicine; Family Provider Family Medicine; PCP Family Medicine
DX: K59.03 Drug induced constipation (principal)
CPT/HCPCS: 51798; 99282; 99283

== ENCOUNTER 2022-05-08 01:08 | Emergency (ER) | payer MEDICARE, MEDICAID, SELFPAY ==
[2022-01-05 15:38] VITALS: BMI 25.4
[2022-05-08] VITALS (17 sets, daily range): BP systolic 115–165; BP diastolic 55–79; PULSE 75–85; RESP 18; TEMP 36.6; O2SAT 91–97; BMI 24.4
--- NOTE | 2022-05-08 01:20 | ED_ITS ---
HPI - Head Injury <Estela Partida MD - Last Filed: 05/16/22 13:37> General Chief complaint: Head Injury Stated complaint: fell out of her bed and cut her right arm Time Seen by Provider: 05/08/22 01:09 Source: patient Mode of arrival: Ambulatory History of Present Illness HPI Narrative: 81-year-old woman with history of chronic back pain, falling, B12 deficiency, intermittent episodes of BPV, congestive heart failure, hypothyroidism who was sleeping comfortably and while sleeping simply rolled out of bed landing on her right head with a contusion to her right face and a large skin tear to the right forearm. She was able to get herself up off the floor is not complaining of any musculoskeletal pain does not complain chest pain, palpitations, abdominal pain. Is very clear that she was sleeping soundly and simply rolled off the bed rather than trying to be getting out of bed and experiencing any type of syncopal episode. Her only complaint is the skin tear pain of the forearm. She is not aware of the large contusion over the maxilla and cheek on the right side. She is anticoagulated on apixaban Related Data Home Medications Medication Instructions Recorded Confirmed multivitamin (Multiple Vitamins 1 tab PO QDAY ##0 01/09/17 05/16/22 tablet) carvedilol 6.25 mg tablet 6.25 mg PO BID 01/17/22 05/16/22 lisinopril 40 mg tablet 40 mg PO DAILY 01/17/22 05/16/22 Previous Rx's Medication Instructions Recorded Disabled parking permit #1 ea 10/21/20 walker #1 ea 02/23/21 ondansetron 4 mg disintegrating 4 mg PO Q8H PRN nausea and 03/29/21 tablet vomiting #20 tabs fluoxetine 10 mg capsule 10 mg PO QPM #90 caps 12/16/21 fluoxetine 20 mg capsule 20 mg PO DAILY #90 caps 12/16/21 lidocaine 5 % topical patch 1 patch topical DAILY #30 ea 01/09/22 levothyroxine 100 mcg tablet See Rx Instructions .Route 01/13/22 .COMPLEX #90 tabs hydrochlorothiazide 12.5 mg capsule 12.5 mg PO DAILY #90 caps 01/20/22 cyanocobalamin (vitamin B-12) 1,000 mcg IM QMONTH #1 mL 02/14/22 1,000 mcg/mL injection solution magnesium gluconate 27.5 mg 27.5 mg PO DAILY #90 tabs 03/15/22 magnesium (500 mg) tablet ferrous sulfate 325 mg (65 mg See Rx Instructions .Route 03/22/22 iron) tablet (FeroSul) .COMPLEX #90 tabs apixaban 5 mg tablet (Eliquis) 2.5 mg PO BID #90 tabs 04/11/22 meclizine 25 mg tablet See Rx Instructions .Route 04/11/22 .COMPLEX #60 tabs morphine 15 mg immediate release See Rx Instructions .Route 04/18/22 tablet .COMPLEX #60 tabs morphine 30 mg tablet,extended See Rx Instructions .Route 04/18/22 release .COMPLEX #60 tabs methocarbamol 500 mg tablet See Rx Instructions .Route 05/02/22 .COMPLEX #90 tabs nitrofurantoin macrocrystal 100 mg 100 mg PO Q12H 5 days #10 caps 05/13/22 capsule Allergies Allergy/AdvReac Type Severity Reaction Status Date / Time prochlorperazine Allergy Severe paralyZed Verified 05/16/22 13:21 [From COMPAZINE] throat codeine [CODEINE] Allergy Mild extremely Verified 05/16/22 13:21 nauseated Review of Systems <Estela Partida MD - Last Filed: 05/16/22 13:37> Review of Systems Narrative: Remainder of complete review of systems is otherwise unremarkable except for that included in the HPI. Patient History <Estela Partida MD - Last Filed: 05/16/22 13:37> Medical History B12 deficiency Benign paroxysmal positional vertigo Body posture problem Carpal tunnel syndrome Cervical somatic dysfunction Cervical spine disease Chicken pox Chronic low back pain Chronic neck pain Chronic pain of left knee Chronic, continuous use of opioids Cranial somatic dysfunction Drug induced constipation Dyspnea on exertion Edema of left lower leg Hearing loss Heart failure Hypothyroidism Kidney stones Lumbar region somatic dysfunction Measles Mumps Onychomycosis Pelvic somatic dysfunction Persistent dyspnea after COVID-19 Rubella Sacral region somatic dysfunction Segmental and somatic dysfunction of abdomen and other regions Shingles Stage 3a chronic kidney disease Systolic congestive heart failure Thoracic region somatic dysfunction Urge incontinence of urine Vision disorder Surgical History Anesthesia History of surgery Family History Father No problems noted. Mother History of heart disease Hypertension Stroke Sister Linn Gehrig disease Sister Smoker Social History household members: friend(s) Smoking Status: Former smoker second hand exposure: Yes (occassional) alcohol intake: never substance use type: prescription drug Smoking Status: Former smoker Substance Use Type: does not use Exam <Estela Partida MD - Last Filed: 05/16/22 13:37> Initial Vital Signs Initial Vital Signs: Vital Signs Temperature 98 F 05/08/22 01:17 Pulse Rate 83 05/08/22 01:17 Respiratory Rate 18 05/08/22 01:17 Blood Pressure 165/79 H 05/08/22 01:17 Pulse Oximetry 96 05/08/22 01:17 Oxygen Delivery Method 05/08/22 01:17 General: Frail and older appearing but, in no acute distress. Able to give a complete and coherent history. Well-nourished well-developed HEENT: Moist mucous membranes, normal sclera with reactive pupils, mild contusion and hematoma developing over the right cheek and maxillary prominence. Orbit and eye are not involved. No nose trauma. No jaw tenderness Neck: No cervical adenopathy, no midline cervical spine pain, supple Respiratory: Lungs are clear to auscultation, no wheezing no rales no rhonchi. Full and symmetrical air movement Cardiac: Regular rate and rhythm no murmurs no bruits Abdomen: Soft, nontender, good bowel tones, no flank pain Skin: Warm and dry, 8 cm skin tear to the right forearm Neurologic: Grossly neurologically intact with no obvious asymmetries or abnormalities Extremities: No trauma, well perfused Psych: Cooperative, appropriate insight and affect <Alexa Bay DO - Last Filed: 05/08/22 07:30> Initial Vital Signs Initial Vital Signs: Vital Signs Temperature 98 F 05/08/22 01:17 Pulse Rate 83 05/08/22 01:17 Respiratory Rate 18 05/08/22 01:17 Blood Pressure 165/79 H 05/08/22 01:17 Pulse Oximetry 96 05/08/22 01:17 Oxygen Delivery Method 05/08/22 01:17 Procedures <Estela Partida MD - Last Filed: 05/16/22 13:37> Laceration Repair right forarm skin tear: Time of procedure: 03:46 Site: upper extremity Side (If applicable): right Size (cm): 8 Description: flap (more large skin tear) Depth: simple, single layer Pre-repair: wound explored, irrigated extensively and deep structures intact Skin layer closed with: other (and steri strips. non adherant pad and loose kerlix wrap to secure ) Course <Estela Partida MD - Last Filed: 05/16/22 13:37> Orders Ordered: ED Orders 05/08/22 02:21 CT head/brain wo con Stat 05/08/22 06:20 CT head/brain wo con Stat Vital Signs Vital signs: Vital Signs - 8 hr 05/08/22 01:17 05/08/22 01:30 05/08/22 02:00 Temperature 98 F Pulse Rate 83 80 77 Respiratory Rate 18 18 18 Blood Pressure 165/79 H 140/65 115/55 L Pulse Oximetry 96 96 95 Oxygen Delivery Method Room Air 05/08/22 02:30 05/08/22 03:00 05/08/22 03:30 Temperature Pulse Rate 82 78 78 Respiratory Rate 18 18 18 Blood Pressure 156/70 H 118/57 L 118/59 L Pulse Oximetry 94 94 94 Oxygen Delivery Method 05/08/22 03:53 05/08/22 04:00 05/08/22 04:00 Temperature Pulse Rate 84 85 Respiratory Rate Blood Pressure 151/66 H Pulse Oximetry 96 97 Oxygen Delivery Method 05/08/22 04:30 05/08/22 04:31 05/08/22 04:31 Temperature Pulse Rate 81 80 Respiratory Rate Blood Pressure 136/62 Pulse Oximetry 93 94 Oxygen Delivery Method 05/08/22 05:00 05/08/22 05:00 05/08/22 05:30 Temperature Pulse Rate 82 Respiratory Rate Blood Pressure 127/69 123/60 Pulse Oximetry 91 Oxygen Delivery Method 05/08/22 05:30 05/08/22 06:00 05/08/22 06:00 Temperature Pulse Rate 77 81 Respiratory Rate Blood Pressure 138/68 Pulse Oximetry 93 94 Oxygen Delivery Method 05/08/22 06:34 05/08/22 06:35 05/08/22 06:35 Temperature Pulse Rate 80 79 Respiratory Rate Blood Pressure 149/74 H Pulse Oximetry 94 95 Oxygen Delivery Method 05/08/22 07:00 05/08/22 07:01 05/08/22 07:01 Temperature Pulse Rate 75 78 Respiratory Rate Blood Pressure 126/71 Pulse Oximetry 93 Oxygen Delivery Method <Alexa Bay, DO - Last Filed: 05/08/22 07:30> Orders Ordered: ED Orders 05/08/22 02:21 CT head/brain wo con Stat 05/08/22 06:20 CT head/brain wo con Stat Vital Signs Vital signs: Vital Signs - 8 hr 05/08/22 01:17 05/08/22 01:30 05/08/22 02:00 Temperature 98 F Pulse Rate 83 80 77 Respiratory Rate 18 18 18 Blood Pressure 165/79 H 140/65 115/55 L Pulse Oximetry 96 96 95 Oxygen Delivery Method Room Air 05/08/22 02:30 05/08/22 03:00 05/08/22 03:30 Temperature Pulse Rate 82 78 78 Respiratory Rate 18 18 18 Blood Pressure 156/70 H 118/57 L 118/59 L Pulse Oximetry 94 94 94 Oxygen Delivery Method 05/08/22 03:53 05/08/22 04:00 05/08/22 04:00 Temperature Pulse Rate 84 85 Respiratory Rate Blood Pressure 151/66 H Pulse Oximetry 96 97 Oxygen Delivery Method 05/08/22 04:30 05/08/22 04:31 05/08/22 04:31 Temperature Pulse Rate 81 80 Respiratory Rate Blood Pressure 136/62 Pulse Oximetry 93 94 Oxygen Delivery Method 05/08/22 05:00 05/08/22 05:00 05/08/22 05:30 Temperature Pulse Rate 82 Respiratory Rate Blood Pressure 127/69 123/60 Pulse Oximetry 91 Oxygen Delivery Method 05/08/22 05:30 05/08/22 06:00 05/08/22 06:00 Temperature Pulse Rate 77 81 Respiratory Rate Blood Pressure 138/68 Pulse Oximetry 93 94 Oxygen Delivery Method 05/08/22 06:34 05/08/22 06:35 05/08/22 06:35 Temperature Pulse Rate 80 79 Respiratory Rate Blood Pressure 149/74 H Pulse Oximetry 94 95 Oxygen Delivery Method 05/08/22 07:00 05/08/22 07:01 05/08/22 07:01 Temperature Pulse Rate 75 78 Respiratory Rate Blood Pressure 126/71 Pulse Oximetry 93 Oxygen Delivery Method [facility] - Head Injury <Estela Partida MD - Last Filed: 05/16/22 13:37> Medical Records Medical records narrative: 81-year-old woman with a roll out of her bed onto a carpeted surface currently on apixaban large skin tear to the right forearm contusion to the right cheek. Due to her age and and a question on apixaban CT scan of her head is ordered. She does not have any bony tenderness and has full range of motion at the wrist and the elbow so I do not suspect underlying fracture. No evidence of syncope, infection, cardiac etiology. CT scan of the head is interpreted as possible small subarachnoid bleed. Scans are electronically transmitted to [facility] in transfer center is contacted for neurosurgical read and recommendation for additional treatment. Findings reviewed with patient. She continues to have absolutely no head, face or neck pain and is alert and appropriate. Imaging Data CT scan - head: Radiologist's Impression: There is a trace amount of subarachnoid hemorrhage seen between the frontal lobes, adjacent to the anterior falx. This finding is best seen on axial images 15, coronal images 13 and sagittal image 18. Dr Jocelyn Levine MD [facility] Narrative Medical decision making narrative: 81-year-old woman who lives with her 15-year-old granddaughter was sleeping soundly rolled out of bed suffered a skin tear to the right forearm abrasion to the right cheek. Chart review, notes from Cardiology most recently November actually do not show her on apixaban as listed in her med list. Patient does not know what medications she takes. Outside records from [facility] do not show apixaban on her most current med list. Notes from primary care doctor January of 2022 do indicate that she is on apixaban Head CT is interpreted as possible trace amount of subarachnoid hemorrhage, clinical exam did not suggest that cervical spine CT was required. Physical ex am does not show any bony tenderness to the thorax pelvis or extremities to warrant additional x-rays. Her belly was soft. There is no evidence of syncope or alternate explanation for her fall aside from simply being soundly asleep and truly rolling out of bed. She was able to get off the floor and has been mobile without pain complaints since the fall CT scan is sent to [facility] and call is returned at 4:40 a.m.. Scan is reviewed with Dr. Johns, neurosurgery. When she looks specifically at the findings as described by the radiologist on axial images 15 coronal images 13 and sagittal images 18 she too is unclear if this is actually artifact or subarachnoid hemorrhage. She suggested repeating the study in 4 hours. If stable the patient can be discharged home at that time. If the patient is actually on apixaban a recommendation was to hold it for 4-5 days. <Alexa Bay, DO - Last Filed: 05/08/22 07:30> Imaging Data CT head 2: Radiologist's Impression: Preliminary report stable trace amount of subarachnoid hemorrhage medial to right frontal lobes MDM Narrative Medical decision making narrative: 81-year-old woman who lives with her 15-year-old granddaughter was sleeping soundly rolled out of bed suffered a skin tear to the right forearm abrasion to the right cheek. Chart review, notes from Cardiology most recently November actually do not show her on apixaban as listed in her med list. Patient does not know what medications she takes. Outside records from [facility] do not show apixaban on her most current med list. Notes from primary care doctor January of 2022 do indicate that she is on apixaban Head CT is interpreted as possible trace amount of subarachnoid hemorrhage, clinical exam did not suggest that cervical spine CT was required. Physical exam does not show any bony tenderness to the thorax pelvis or extremities to warrant additional x-rays. Her belly was soft. There is no evidence of syncope or alternate explanation for her fall aside from simply being soundly asleep and truly rolling out of bed. She was able to get off the floor and has been mobile without pain complaints since the fall CT scan is sent to [facility] and call is returned at 4:40 a.m.. Scan is reviewed with Dr. Johns, neurosurgery. When she looks specifically at the findings as described by the radiologist on axial images 15 coronal images 13 and sagittal images 18 she too is unclear if this is actually artifact or subarachnoid hemorrhage. She suggested repeating the study in 4 hours. If stable the patient can be discharged home at that time. If the patient is actually on apixaban a recommendation was to hold it for 4-5 days. Phu-Patient signed out to me by Dr. Smith. Repeat head CT is stable. I have seen and evaluated patient myself. Small abrasion on right temporal and right arm which is now bandage. Photo Mask Pattern Generator strength is equal bilaterally. She has no cervical tenderness. She denies any pain does not want any Tylenol. Question able if she is taking apixaban or not. However neurologically intact with a stable trace subarachnoid hemorrhage at this point can be discharged Discharge Plan Departure Patient Disposition: Home Clinical Impression: Accidental fall from bed Qualifiers: Encounter type: initial encounter Qualified Code(s): W06.XXXA - Fall from bed, initial encounter Laceration of skin of forearm Qualifiers: Encounter type: initial encounter Laterality: right Qualified Code(s): S51.811A - Laceration without foreign body of right forearm, initial encounter Contusion of face Qualifiers: Encounter type: initial encounter Qualified Code(s): S00.83XA - Contusion of o ther part of head, initial encounter Instructions: DI for Laceration Repair-Skin Closure Strips, DI for Laceration Repair-Skin Glue, DI for Contusion Activity Restrictions/Additional Instructions: Thank you for coming in today, I am sorry that you rolled out of bed There is a large skin tear on your forearm. Using skin glue and Steri-Strips this is repaired. The glue in the strips began to peel off after about a week and can be gently be removed as they continued to peel. If the area becomes increasingly painful, swollen, red or has any drainage it needs to be re- evaluated immediately A CT scan of your head was done and the initial read was concerned for a small bit of bleeding in the front part of your brain. This was reviewed with a neurosurgeon at [facility]. The scan was repeated 4 hours later and was found to be unchanged. It is safe for you to be discharged home. Your medication list states that you are on apixaban, a blood thinner. You are not sure and a cardiology note from November did not mention the apixaban. If you are on this medication, please do not take it for the next 5 days. I do want you to follow-up with your primary care provider to make sure that your arm is healing nicely and to discuss whether or not you should restart the apixaban if you are taking it. Prescriptions: No Action nitrofurantoin macrocrystal 100 mg capsule 100 mg PO Q12H 5 Days Qty: 10 0RF Rx Instructions: must administer with a meal/food multivitamin [Multiple Vitamins] 1 EACH tablet 1 tab PO QDAY Qty: 0 (DME) Disabled parking permit See Rx Instructions .Route .MEDSUPPLY Qty: 1 0RF Rx Instructions: As directed (DME) walker [facility] [place] See Rx Instructions .ROUTE .MEDSUPPLY Qty: 1 0RF Rx Instructions: four wheeled walker; use as directed fluoxetine 20 mg capsule 20 mg PO DAILY Qty: 90 3RF fluoxetine 10 mg capsule 10 mg PO QPM Qty: 90 3RF Rx Instructions: Refill on 12/13/2019 levothyroxine 100 mcg tablet See Rx Instructions .ROUTE .COMPLEX Qty: 90 3RF Dose Instruction: TAKE ONE TABLET BY MOUTH ONE TIME DAILY Rx Instructions: TAKE ONE TABLET BY MOUTH ONE TIME DAILY lisinopril 40 mg tablet 40 mg PO DAILY carvedilol 6.25 mg tablet 6.25 mg PO BID Rx Instructions: must administer with a meal/food hydrochlorothiazide 12.5 mg capsule 12.5 mg PO DAILY Qty: 90 2RF cyanocobalamin (vitamin B-12) 1,000 mcg/mL solution 1,000 mcg IM QMONTH Qty: 1 11RF magnesium gluconate 27.5 mg magne- sium (500 mg) tablet 27.5 mg PO DAILY Qty: 90 3RF ferrous sulfate [FeroSul] 325 mg (65 mg iron) tablet See Rx Instructions .ROUTE .COMPLEX Qty: 90 3RF Dose Instruction: TAKE ONE TABLET BY MOUTH ONE TIME DAILY Rx Instructions: TAKE ONE TABLET BY MOUTH ONE TIME DAILY meclizine 25 mg tablet See Rx Instructions .ROUTE .COMPLEX Qty: 60 0RF Dose Instruction: TAKE ONE TABLET BY MOUTH FOUR TIMES DAILY Rx Instructions: TAKE ONE TABLET BY MOUTH FOUR TIMES DAILY Eliquis 5 mg tablet 2.5 mg PO BID Qty: 90 0RF morphine 30 mg tablet extended release See Rx Instructions .ROUTE .COMPLEX Qty: 60 0RF Rx Instructions: Take 1 tablet by mouth every 12 hours for pain morphine 15 mg tablet See Rx Instructions .ROUTE .COMPLEX Qty: 60 0RF Rx Instructions: Take 1 tablet by mouth twice a day as needed for pain methocarbamol 500 mg tablet See Rx Instructions .ROUTE .COMPLEX Qty: 90 5RF Dose Instruction: TAKE ONE TABLET BY MOUTH THREE TIMES DAILY NEEDED FOR MUSCLE SPASM Rx Instructions: TAKE ONE TABLET BY MOUTH THREE TIMES DAILY NEEDED FOR MUSCLE SPASM ondansetron 4 mg tablet,disintegrating 4 mg PO Q8H PRN (Reason: nausea and vomiting) Qty: 20 5RF cyanocobalamin (vitamin B-12) 1,000 mcg/mL solution 1,000 mcg IM ONCE Qty: 1000 0RF lidocaine 5 % Adhesive Patch,Medicated 1 patch topical DAILY Qty: 30 0RF Referrals: Olegario Rubio DO [Primary Care Provider] - Visit Report Forms: Patient Portal/API
--- NOTE | 2022-05-08 02:21 | DI.CT.S_ITS ---
PROCEDURE: CT HEAD/BRAIN WO CON INDICATIONS: fall, on apixaban TECHNIQUE: Noncontrast 4.5 mm thick angled axial sections acquired from the foramen magnum to the vertex, with coronal and sagittal reformats. For radiation dose reduction, the following was used: automated exposure control, adjustment of mA and/or kV according to patient size. COMPARISON: None. FINDINGS: Image quality: Excellent. CSF spaces: Basal cisterns are patent. No extra-axial fluid collections. The ventricles are symmetric in size and shape. Brain: There is a small amount of hyperdense material seen adjacent to the anterior falx, as on series 2 images 14 and 15. No intracranial masses. There is cerebral volume loss for age, with resultant ventricular and sulcal prominence. There are periventricular and deep white matter chronic small vessel ischemic changes. There is intracranial internal carotid artery atherosclerosis. Skull and face: Calvarium and visualized facial bones appear intact, without suspicious lesions. Sinuses: Visualized sinuses and mastoids are clear. IMPRESSION: Potential small amount of subarachnoid hemorrhage seen adjacent to the anterior falx. Note: No significant discrepancy from the preliminary report. Dictated by: Bakari Johnson M.D. on 05/08/2022 at 7:11 Approved by: Bakari Johnson M.D. on 05/08/2022 at 7:13
--- NOTE | 2022-05-08 02:25 | PC.NURSE ---
to CT via stretcher with tech
--- NOTE | 2022-05-08 02:40 | PC.NURSE ---
returns to the ER via stretcher with tech from radiology
--- NOTE | 2022-05-08 03:25 | PC.NURSE ---
at bedside for wound repair
--- NOTE | 2022-05-08 03:30 | PC.NURSE ---
steri strips applied to skin tear per Dr Partida and arm dressed per Dr Partida
--- NOTE | 2022-05-08 04:30 | PC.NURSE ---
Resting quietly in NAD - no needs voiced - PWD - respirations equal and unlabored bilaterally - no needs voiced
--- NOTE | 2022-05-08 05:00 | PC.NURSE ---
no changes in pt status
--- NOTE | 2022-05-08 05:30 | PC.NURSE ---
No changes in pt status
--- NOTE | 2022-05-08 06:20 | DI.CT.S_ITS ---
PROCEDURE: CT HEAD/BRAIN WO CON INDICATIONS: fall, abnormal CT at 2:20 this am TECHNIQUE: Noncontrast 4.5 mm thick angled axial sections acquired from the foramen magnum to the vertex, with coronal and sagittal reformats. For radiation dose reduction, the following was used: automated exposure control, adjustment of mA and/or kV according to patient size. COMPARISON: [facility], CT, CT HEAD/BRAIN WO CON, 05/08/2022, 2:27. FINDINGS: Image quality: Excellent. CSF spaces: Basal cisterns are patent. No extra-axial fluid collections. The ventricles are symmetric in size and shape. Brain: There is a minimal amount apparent material seen adjacent to the anterior falx just to the right of the midline, as on series 2, image 15 and on series 4, image 15. This is unchanged compared to the prior study. No new hyperdensity can be seen. No intracranial masses. There is cerebral volume loss for age, with resultant ventricular and sulcal prominence. There are periventricular and deep white matter chronic small vessel ischemic changes. There is intracranial internal carotid artery atherosclerosis. Skull and face: Calvarium and visualized facial bones appear intact, without suspicious lesions. Sinuses: Visualized sinuses and mastoids are clear. IMPRESSION: Stable amount of hyperdense material seen adjacent to the anterior falx. Differential diagnosis includes a small amount of stable subarachnoid hemorrhage versus benign senescent calcification. If clinically appropriate, please consider short-term follow-up. Note: No significant discrepancy from the preliminary report. Dictated by: Bakari Johnson M.D. on 05/08/2022 at 7:06 Approved by: Bakari Johnson M.D. on 05/08/2022 at 7:10
--- NOTE | 2022-05-08 06:20 | PC.NURSE ---
To radiology via stretcher with tech
--- NOTE | 2022-05-08 06:35 | PC.NURSE ---
Returns to the ER from radiology via stretcher
== END 2022-05-08 07:30 | disposition home or self-care (01) ==
PROVIDERS: Emergency Provider Emergency Medicine; Family Provider Family Medicine; PCP Family Medicine
DX: S51.811A Laceration without foreign body of right forearm, initial encounter (principal); S00.83XA Contusion of other part of head, initial encounter; W06.XXXA Fall from bed, initial encounter; I50.9 Heart failure, unspecified; Z79.01 Long term (current) use of anticoagulants; Z79.899 Other long term (current) drug therapy
CPT/HCPCS: 70450; 99284

== ENCOUNTER → 2022-05-13 10:10 | Outpatient (CLI) | payer MEDICARE, MEDICAID, SELFPAY ==
[2022-01-05 15:38] VITALS: BMI 25.4
== END ==
PROVIDERS: Family Provider Family Medicine; PCP Family Medicine; Visit Provider Physician Assistant Medical
DX: R30.0 Dysuria (principal)
CPT/HCPCS: 87077; 87086

== ENCOUNTER → 2022-12-01 13:14 | Outpatient (CLI) | payer OTHER, MEDICAID, SELFPAY ==
[2022-01-05 15:38] VITALS: BMI 25.4
[2022-12-01 14:35] LABS: Add Manual Diff / Slide Review NO; Basophils Absolute Auto 0 /uL (0-100); Basophils Percent Auto 0.7 % (0-2); Eosinophils Absolute Auto 300 /uL (0-450); Eosinophils Percent Auto 4.5 % (2-4); Hematocrit 31.1 % (36-46); Hemoglobin 10.4 g/dL (12.0-16.0); Lymphocytes Absolute Auto 1400 /uL (1100-4500); Lymphocytes Percent Auto 22.2 % (25-40); Mean Corpuscular HGB Conc 33.4 % (30-36); Mean Corpuscular Hemoglobin 30.7 PG (26-34); Mean Corpuscular Volume 91.8 fL (80-100); Monocytes Absolute Auto 500 /uL (0-900); Monocytes Percent Auto 7.5 % (3-14); Neutrophils Absolute Auto 4100 /uL (1500-7000); Neutrophils Percent Auto 65.1 % (50-75); Platelet Count 199 X10^3/uL (150-400); Red Blood Cell Count 3.39 X10^6/uL (4.0-5.2); Red Cell Distribution Width 14.5 % (11.6-14.8); White Blood Cell Count 6.3 X10^3/uL (4.5-11.0)
[2022-12-01 15:00] LABS: Alanine Aminotransferase 15 IU/L (<35); Albumin 2.8 g/dL (3.5-5.0); Alkaline Phosphatase 81 U/L (38-126); Aspartate Aminotransferase 25 IU/L (14-36); BUN Creatinine Ratio 14.2 (6-22); Bilirubin Total 0.6 mg/dL (0.2-1.3); Blood Urea Nitrogen 16 mg/dL (7-17); Calcium 8.9 mg/dL (8.4-10.2); Carbon Dioxide 33 mmol/L (22-32); Chloride 102 mmol/L (98-107); Estimated Glomerular Filt Rate 48 mL/min (>60); Globulin 2.7 g/dL (1.7-4.1); Glucose 52 mg/dL (80-110); HEMOLYSIS < 15 (0-50); Potassium 4.3 mmol/L (3.4-5.1); Sodium 138 mmol/L (137-145); Total Protein 5.5 g/dL (6.3-8.2)
[2022-12-01 15:28] LABS: TSH w/ Reflex to FT4 5.33 uIU/mL (0.47-4.68)
[2022-12-01 15:46] LABS: Vitamin B12 > 1000 pg/mL (239-931)
[2022-12-01 18:51] LABS: Free T4, Direct Thyroxine 1.25 ng/dL (0.78-2.19)
== END ==
PROVIDERS: Family Provider Family Medicine; PCP Family Medicine; Referring Provider Family Medicine; Visit Provider Family Medicine
DX: E03.9 Hypothyroidism, unspecified (principal); E53.8 Deficiency of other specified B group vitamins; E87.1 Hypo-osmolality and hyponatremia; I50.23 Acute on chronic systolic (congestive) heart failure; I50.32 Chronic diastolic (congestive) heart failure; N34.2 Other urethritis; R60.0 Localized edema; Z13.220 Encounter for screening for lipoid disorders
CPT/HCPCS: 36415; 80053; 82607; 84439; 84443; 85025

== ENCOUNTER 2023-02-23 15:46 | Inpatient (IN) | payer MEDICARE, MEDICAID, SELFPAY ==
[2022-01-05 15:38] VITALS: BMI 25.4
[2023-02-23] VITALS (29 sets, daily range): BP systolic 116–167; BP diastolic 66–102; PULSE 80–100; RESP 21–44; TEMP 36–38.1; O2SAT 88–100; BMI 29.7; BMI 24.5
--- NOTE | 2023-02-23 15:59 | DI.RAD.S_ITS ---
PROCEDURE: XR CHEST 1V INDICATIONS: suspected sepsis TECHNIQUE: One view of the chest was acquired. COMPARISON: [facility], CR, XR CHEST 1V, 01/06/2022, 6:27. [facility], CR, XR CHEST 1V, 01/04/2022, 16:07. FINDINGS: Surgical changes and devices: None. Lungs and pleura: Small to moderate left pleural effusion with adjacent atelectasis versus consolidation. Possible trace right pleural effusion. Mediastinum: Mediastinal contours appear normal. Heart size is normal. Bones and chest wall: No suspicious bony lesions. Overlying soft tissues appear unremarkable. IMPRESSION: Small to moderate left pleural effusion with adjacent atelectasis versus consolidation. Possible trace right pleural effusion. Dictated by: Keaton Bustamante M.D. on 02/23/2023 at 16:38 Approved by: Keaton Bustamante M.D. on 02/23/2023 at 16:39
[2023-02-23 16:18] LABS: COVID19 -Nasal RAPID Negative (Negative)
[2023-02-23 16:24] LABS: Add Manual Diff / Slide Review NO; Basophils Absolute Auto 0 /uL (0-100); Basophils Percent Auto 0.3 % (0-2); Eosinophils Absolute Auto 100 /uL (0-450); Eosinophils Percent Auto 0.5 % (2-4); Hematocrit 36.4 % (36-46); Hemoglobin 11.9 g/dL (12.0-16.0); Lymphocytes Absolute Auto 1400 /uL (1100-4500); Mean Corpuscular HGB Conc 32.8 % (30-36); Mean Corpuscular Hemoglobin 30.1 PG (26-34); Mean Corpuscular Volume 91.8 fL (80-100); Monocytes Absolute Auto 500 /uL (0-900); Monocytes Percent Auto 4.3 % (3-14); Neutrophils Absolute Auto 8600 /uL (1500-7000); Neutrophils Percent Auto 81.9 % (50-75); Platelet Count 256 X10^3/uL (150-400); Red Blood Cell Count 3.96 X10^6/uL (4.0-5.2); Red Cell Distribution Width 15.3 % (11.6-14.8); White Blood Cell Count 10.5 X10^3/uL (4.5-11.0)
[2023-02-23 16:27] LABS: INR 1.2 (0.9-1.3); Prothrombin Time 13.6 SECONDS (10.1-12.7)
[2023-02-23 16:30] LABS: PTT Partial Thromboplastin Tim 35 SECONDS (26-36)
[2023-02-23 16:32] LABS: Alanine Aminotransferase 15 IU/L (<35); Albumin 3.1 g/dL (3.5-5.0); Alkaline Phosphatase 70 U/L (38-126); Aspartate Aminotransferase 29 IU/L (14-36); BUN Creatinine Ratio 17.3 (6-22); Bilirubin Total 0.7 mg/dL (0.2-1.3); Blood Urea Nitrogen 17 mg/dL (7-17); Calcium 9.4 mg/dL (8.4-10.2); Carbon Dioxide 28 mmol/L (22-32); Chloride 102 mmol/L (98-107); Creatine Kinase 25 U/L (30-135); Estimated Glomerular Filt Rate 57 mL/min (>60); Globulin 3.1 g/dL (1.7-4.1); Glucose 153 mg/dL (80-110); Lactate (Lactic Acid) 1.5 mmol/L (0.7-2.1); Lipase 26 U/L (23-300); Potassium 4.8 mmol/L (3.4-5.1); Sodium 135 mmol/L (137-145); Total Protein 6.2 g/dL (6.3-8.2)
[2023-02-23 16:38] LABS: HEMOLYSIS 54 (0-50)
[2023-02-23 16:43] LABS: NT-proBNP (BNP-Adult 18+) 24100 pg/mL (<450)
[2023-02-23 16:48] LABS: Procalcitonin 0.08 ng/mL (<0.5)
[2023-02-23 16:51] LABS: Troponin I 0.133 ng/mL (0.01-0.034)
--- NOTE | 2023-02-23 17:07 | ED.GENADULT ---
HPI - General Adult <Dony Camp DO - Last Filed: 02/24/23 09:22> General Chief complaint: Fever Stated complaint: cp/sob/covid exposure, Time Seen by Provider: 02/23/23 16:14 Source: patient and EMS Mode of arrival: EMS History of Present Illness HPI narrative: 82-year-old female former smoker with a history of chronic kidney disease, atrial fibrillation on anticoagulation heart failure presents by EMS for evaluation of fever, chills, shortness of breath and chest pain with exertion. She has been recently exposed to COVID. She states that starting yesterday she started becoming profoundly fatigued with any exertion. She is had low-grade fever and shortness of breath. It seems to improve with rest. She denies any pain, heaviness or squeezing. She denies nausea or vomiting. She denies any difficulty moving her bowels or with urination. Related Data Home Medications Medication Instructions Recorded Confirmed multivitamin (Multiple Vitamins 1 tab PO QDAY ##0 01/09/17 02/23/23 tablet) carvedilol 6.25 mg tablet 6.25 mg PO BID 01/17/22 02/23/23 lisinopril 40 mg tablet 40 mg PO DAILY 01/17/22 02/23/23 Previous Rx's Medication Instructions Recorded Disabled parking permit #1 ea 10/21/20 walker #1 ea 02/23/21 ondansetron 4 mg disintegrating 4 mg PO Q8H PRN nausea and 03/29/21 tablet vomiting #20 tabs cyanocobalamin (vitamin B-12) 1,000 mcg IM QMONTH #1 mL 02/14/22 1,000 mcg/mL injection solution ferrous sulfate 325 mg (65 mg See Rx Instructions .Route 03/22/22 iron) tablet (FeroSul) .COMPLEX #90 tabs methocarbamol 500 mg tablet See Rx Instructions .Route 05/02/22 .COMPLEX #90 tabs apixaban 5 mg tablet (Eliquis) 2.5 mg (1/2 x 5 mg) PO BID #90 tabs 11/02/22 fluoxetine 10 mg capsule 10 mg PO QPM #90 caps 12/08/22 fluoxetine 20 mg capsule 20 mg PO DAILY #90 caps 12/08/22 magnesium gluconate 27.5 mg 27.5 mg PO DAILY #90 tabs 12/08/22 magnesium (500 mg) tablet tiotropium bromide 1.25 2 puff inhalation QAM #4 grams 12/08/22 mcg/actuation mist for inhalation (Spiriva Respimat) levothyroxine 100 mcg tablet See Rx Instructions .Route 01/17/23 .COMPLEX #90 tabs meclizine 25 mg tablet See Rx Instructions .Route 01/17/23 .COMPLEX #60 tabs hydrochlorothiazide 12.5 mg capsule 12.5 mg PO DAILY #30 caps 01/31/23 morphine 15 mg immediate release See Rx Instructions .Route 02/23/23 tablet .COMPLEX #60 tabs morphine 30 mg tablet,extended See Rx Instructions .Route 02/23/23 release .COMPLEX #60 tabs Allergies Allergy/AdvReac Type Severity Reaction Status Date / Time prochlorperazine Allergy Severe paralyZed Verified 12/29/22 10:57 [From COMPAZINE] throat codeine [CODEINE] Allergy Mild extremely Verified 12/29/22 10:57 nauseated pregabalin Allergy dizziness, Verified 12/29/22 10:57 difficulty walking Patient History <Dony Camp DO - Last Filed: 02/24/23 09:22> Medical History Chronic pain syndrome Custody issue Subarachnoid hemorrhage following injury Edema of left lower leg Systolic congestive heart failure Chronic pain of left knee Benign paroxysmal positional vertigo Drug induced constipation Persistent dyspnea after COVID-19 Heart failure Dyspnea on exertion Body posture problem Chronic, continuous use of opioids Stage 3a chronic kidney disease Urge incontinence of urine Onychomycosis Segmental and somatic dysfunction of abdomen and other regions Sacral region somatic dysfunction Pelvic somatic dysfunction Lumbar region somatic dysfunction Thoracic region somatic dysfunction Cervical somatic dysfunction Cranial somatic dysfunction Chronic neck pain Vision disorder Hearing loss Cervical spine disease Carpal tunnel syndrome Shingles Rubella Mumps Measles Chicken pox Kidney stones Chronic low back pain B12 deficiency Hypothyroidism Surgical History Anesthesia History of surgery Family History Father No problems noted. Mother History of heart disease Hypertension Stroke Sister Linn Gehrig disease Sister Smoker Social History household members: friend(s) Smoking Status: Former smoker second hand exposure: Yes (occassional) alcohol intake: never substance use type: prescription drug Smoking Status: Former smoker Substance Use Type: does not use Exam <Dony Camp DO - Last Filed: 02/24/23 09:22> Initial Vital Signs Initial Vital Signs: Vital Signs Temperature 100.5 F H 02/23/23 15:55 Pulse Rate 94 H 02/23/23 15:55 Respiratory Rate 32 H 02/23/23 15:55 Blood Pressure 167/102 H 02/23/23 15:55 Pulse Oximetry 88 L 02/23/23 15:55 Oxygen Delivery Method Room Air 02/23/23 15:55 <Walt Garzon DO - Last Filed: 02/23/23 22:32> Initial Vital Signs Initial Vital Signs: Vital Signs Temperature 100.5 F H 02/23/23 15:55 Pulse Rate 94 H 02/23/23 15:55 Respiratory Rate 32 H 02/23/23 15:55 Blood Pressure 167/102 H 02/23/23 15:55 Pulse Oximetry 88 L 02/23/23 15:55 Oxygen Delivery Method Room Air 02/23/23 15:55 Course <Dony Camp DO - Last Filed: 02/24/23 09:22> Orders Ordered: Albuterol (Albuterol 2.5 Mg/3 Ml Neb (Adult)) 2.5 mg INH [id number] PRN PRN Reason: Dyspnea Apixaban (Apixaban 5 Mg Tablet) 2.5 mg PO BID [facility] Last Admin: 02/24/23 08:36 Dose: 2.5 mg Documented By: YOSI Carvedilol (Carvedilol 3.125 Mg Tablet) 6.25 mg PO BID [facility] Last Admin: 02/24/23 08:35 Dose: 6.25 mg Documented By: YOSI Ferrous Sulfate (Ferrous Sulfate 325 Mg Tablet) 325 mg PO DAILY [facility] Last Admin: 02/24/23 08:35 Dose: 325 mg Documented By: YOSI Fluoxetine HCl (Fluoxetine 20 Mg Capsule) 20 mg PO DAILY [facility] Last Admin: 02/24/23 08:35 Dose: 20 mg Documented By: YOSI Fluoxetine HCl (Fluoxetine 10 Mg Capsule) 10 mg PO QPM [facility] Furosemide (Furosemide 20 Mg/2 Ml Vial) 40 mg IV 0800,1700 [facility] Last Admin: 02/24/23 08:37 Dose: 40 mg Documented By: YOSI Ipratropium [place] (Ipratropium 0.5 Mg/2.5 Ml Neb) 0.5 mg INH Q4HRWA [facility] Ipratropium [place] (Ipratropium 0.5 Mg/2.5 Ml Neb) 0.5 mg INH Q2H PRN PRN Reason: Shortness Of Breath Levothyroxine Sodium (Levothyroxine 100 Mcg Tablet) 100 mcg PO QACBREAK [facility] Last Admin: 02/24/23 06:51 Dose: 100 mcg Documented By: Admin: 02/23/23 22:47 Dose: 100 mcg Documented By: Lisinopril (Lisinopril 20 Mg Tablet) 40 mg PO DAILY [facility] Last Admin: 02/24/23 08:36 Dose: 40 mg Documented By: YOSI Magnesium Oxide (Magnesium Oxide 400 Mg Tablet) 200 mg PO DAILY [facility] Meclizine HCl (Meclizine Hcl 12.5 Mg Tablet) 12.5 mg PO QID PRN PRN Reason: dizziness Methocarbamol (Methocarbamol 500 Mg Tablet) 500 mg PO TID PRN PRN Reason: muscle spasms Morphine Sulfate (Morphine Ir 15 Mg Tablet) 15 mg PO Q6HR PRN PRN Reason: Pain, Severe (7-10) Last Admin: 02/24/23 08:48 Dose: 15 mg Documented By: YOSI Morphine Sulfate (Morphine Er 15 Mg Tablet) 30 mg PO BID [facility] Last Admin: 02/24/23 08:47 Dose: 30 mg Documented By: YOSI Naloxone HCl (Naloxone 0.4 Mg/Ml Vial) 0.2 mg IV Q2MIN PRN PRN Reason: Opiate Reversal Home Med Storage 0 each PO PRN PRN PRN Reason: HOME MED STORAGE Ondansetron HCl (Ondansetron 4 Mg/2 Ml Inj) 4 mg IV NOW PRN PRN Reason: Nausea And Vomiting Ondansetron HCl (Ondansetron 4 Mg Odt) 4 mg PO Q8H PRN PRN Reason: nausea and vomiting Last Admin: 02/24/23 06:04 Dose: 4 mg Documented By: Ondansetron HCl (Ondansetron 4 Mg/2 Ml Inj) 4 mg IV Q8HR PRN PRN Reason: Nausea And Vomiting Discontinued Medications Furosemide (Furosemide 40 Mg/4 Ml Vial) 40 mg IV NOW ONE Stop: 02/23/23 18:01 Last Admin: 02/23/23 18:18 Dose: 40 mg Documented By: SORAIDA Furosemide (Furosemide 20 Mg/2 Ml Vial) 40 mg IV BID [facility] Sodium Chloride (Normal Saline 0.9%) 2,076.54 mls @ 692.18 mls/hr 30 ml/kg infuse over 3 hr (2076.54 ml) IV NOW ONE Stop: 02/23/23 20:08 Last Infusion: 02/23/23 18:17 Dose: 0 mls/hr Documented By: Admin: 02/23/23 17:26 Dose: 692.18 mls/hr Documented By: SORAIDA Ceftriaxone Sodium 2,000 mg/ (Sodium Chloride) 100 mls @ 200 mls/hr IV NOW ONE Stop: 02/23/23 17:10 Last Infusion: 02/23/23 18:12 Dose: Infused Documented By: Admin: 02/23/23 17:36 Dose: 200 mls/hr Documented By: SORAIDA Meclizine HCl (Meclizine Hcl 12.5 Mg Tablet) 0 mg PO QID PRN PRN Reason: dizziness Morphine Sulfate (Morphine Er 30 Mg Tablet) 30 mg PO BID [facility] Non-Formulary Medication (Magnesium Gluconate) 27.5 mg PO DAILY [facility] Last Admin: 02/24/23 09:19 Dose: Not Given Documented By: YOSI Non-Formulary Medication (Tiotropium [place] [Spiriva Respimat]) 2 puff INHALATION QAM [facility] Ondansetron HCl (Ondansetron 4 Mg Odt) 4 mg SL NOW PRN PRN Reason: Nausea And Vomiting Last Admin: 02/23/23 22:46 Dose: 4 mg Documented By: Vital Signs Vital signs: Vital Signs - 8 hr 02/23/23 15:55 02/23/23 16:00 02/23/23 16:45 Temperature 100.5 F H Pulse Rate 94 H Respiratory Rate 32 H 32 H Blood Pressure 167/102 H 125/67 Pulse Oximetry 88 L 88 L Oxygen Delivery Method Room Air Room Air Oxygen Flow Rate 02/23/23 16:59 02/23/23 17:00 02/23/23 17:00 Temperature Pulse Rate 90 90 Respiratory Rate 42 H 44 H Blood Pressure 138/85 Pulse Oximetry 100 98 Oxygen Delivery Method Nasal Cannula Oxygen Flow Rate 2 02/23/23 17:01 02/23/23 17:01 02/23/23 17:19 Temperature Pulse Rate 90 96 H Respiratory Rate 40 H 36 H Blood Pressure 146/66 H Pulse Oximetry 95 92 Oxygen Delivery Method Oxygen Flow Rate 02/23/23 17:30 02/23/23 17:30 02/23/23 17:45 Temperature Pulse Rate 85 Respiratory Rate 30 H Blood Pressure 141/79 H 119/71 Pulse Oximetry 98 Oxygen Delivery Method Oxygen Flow Rate 02/23/23 17:45 02/23/23 18:00 02/23/23 18:00 Temperature Pulse Rate 87 82 Respiratory Rate 23 Blood Pressure 116/69 Pulse Oximetry 98 97 Oxygen Delivery Method Oxygen Flow Rate 02/23/23 18:15 02/23/23 18:21 02/23/23 18:21 Temperature Pulse Rate 82 86 Respiratory Rate 24 28 H Blood Pressure 123/75 Pulse Oximetry 98 99 Oxygen Delivery Method Nasal Cannula Oxygen Flow Rate 1 02/23/23 18:30 02/23/23 18:30 02/23/23 18:45 Temperature Pulse Rate 85 Respiratory Rate Blood Pressure 143/70 H 133/71 Pulse Oximetry 98 Oxygen Delivery Method Nasal Cannula Oxygen Flow Rate 2 02/23/23 18:45 02/23/23 18:57 02/23/23 19:00 Temperature Pulse Rate 84 87 Respiratory Rate 23 32 H Blood Pressure 149/93 H Pulse Oximetry 97 96 Oxygen Delivery Method Nasal Cannula Oxygen Flow Rate 2 02/23/23 19:02 02/23/23 19:15 02/23/23 19:15 Temperature Pulse Rate 100 H 87 Respiratory Rate 22 Blood Pressure 134/83 Pulse Oximetry Oxygen Delivery Method Oxygen Flow Rate 02/23/23 19:30 02/23/23 19:30 02/23/23 19:45 Temperature Pulse Rate 86 87 Respiratory Rate 23 Blood Pressure 137/83 Pulse Oximetry 98 99 Oxygen Delivery Method Oxygen Flow Rate 02/23/23 20:01 02/23/23 20:01 02/23/23 20:15 Temperature 98.4 F Pulse Rate 91 H 83 Respiratory Rate 28 H 24 Blood Pressure 144/86 H Pulse Oximetry 97 97 Oxygen Delivery Method Nasal Cannula Oxygen Flow Rate 2 02/23/23 20:30 02/23/23 20:30 02/23/23 20:45 Temperature Pulse Rate 86 83 Respiratory Rate 21 23 Blood Pressure 136/81 Pulse Oximetry 98 97 Oxygen Delivery Method Nasal Cannula Oxygen Flow Rate 1 02/23/23 20:58 02/23/23 20:58 02/23/23 21:00 Temperature Pulse Rate 92 H 91 H Respiratory Rate 25 H Blood Pressure 132/87 Pulse Oximetry 97 98 Oxygen Delivery Method Oxygen Flow Rate 02/23/23 21:00 Temperature Pulse Rate Respiratory Rate Blood Pressure 128/82 Pulse Oximetry Oxygen Delivery Method Oxygen Flow Rate <Walt Garzon, DO - Last Filed: 02/23/23 22:32> Orders Ordered: Albuterol (Albuterol 2.5 Mg/3 Ml Neb (Adult)) 2.5 mg INH [id number] PRN PRN Reason: Dyspnea Apixaban (Apixaban 5 Mg Tablet) 2.5 mg PO BID [facility] Last Admin: 02/24/23 08:36 Dose: 2.5 mg Documented By: YOSI Carvedilol (Carvedilol 3.125 Mg Tablet) 6.25 mg PO BID [facility] Last Admin: 02/24/23 08:35 Dose: 6.25 mg Documented By: YOSI Ferrous Sulfate (Ferrous Sulfate 325 Mg Tablet) 325 mg PO DAILY [facility] Last Admin: 02/24/23 08:35 Dose: 325 mg Documented By: YOSI Fluoxetine HCl (Fluoxetine 20 Mg Capsule) 20 mg PO DAILY [facility] Last Admin: 02/24/23 08:35 Dose: 20 mg Documented By: YOSI Fluoxetine HCl (Fluoxetine 10 Mg Capsule) 10 mg PO QPM [facility] Furosemide (Furosemide 20 Mg/2 Ml Vial) 40 mg IV 0800,1700 [facility] Last Admin: 02/24/23 08:37 Dose: 40 mg Documented By: YOSI Ipratropium [place] (Ipratropium 0.5 Mg/2.5 Ml Neb) 0.5 mg INH Q4HRWA [facility] Ipratropium [place] (Ipratropium 0.5 Mg/2.5 Ml Neb) 0.5 mg INH Q2H PRN PRN Reason: Shortness Of Breath Levothyroxine Sodium (Levothyroxine 100 Mcg Tablet) 100 mcg PO QACBREAK [facility] Last Admin: 02/24/23 06:51 Dose: 100 mcg Documented By: Admin: 02/23/23 22:47 Dose: 100 mcg Documented By: Lisinopril (Lisinopril 20 Mg Tablet) 40 mg PO DAILY [facility] Last Admin: 02/24/23 08:36 Dose: 40 mg Documented By: YOSI Magnesium Oxide (Magnesium Oxide 400 Mg Tablet) 200 mg PO DAILY [facility] Meclizine HCl (Meclizine Hcl 12.5 Mg Tablet) 12.5 mg PO QID PRN PRN Reason: dizziness Methocarbamol (Methocarbamol 500 Mg Tablet) 500 mg PO TID PRN PRN Reason: muscle spasms Morphine Sulfate (Morphine Ir 15 Mg Tablet) 15 mg PO Q6HR PRN PRN Reason: Pain, Severe (7-10) Last Admin: 02/24/23 08:48 Dose: 15 mg Documented By: YOSI Morphine Sulfate (Morphine Er 15 Mg Tablet) 30 mg PO BID [facility] Last Admin: 02/24/23 08:47 Dose: 30 mg Documented By: YOSI Naloxone HCl (Naloxone 0.4 Mg/Ml Vial) 0.2 mg IV Q2MIN PRN PRN Reason: Opiate Reversal Home Med Storage 0 each PO PRN PRN PRN Reason: HOME MED STORAGE Ondansetron HCl (Ondansetron 4 Mg/2 Ml Inj) 4 mg IV NOW PRN PRN Reason: Nausea And Vomiting Ondansetron HCl (Ondansetron 4 Mg Odt) 4 mg PO Q8H PRN PRN Reason: nausea and vomiting Last Admin: 02/24/23 06:04 Dose: 4 mg Documented By: Ondansetron HCl (Ondansetron 4 Mg/2 Ml Inj) 4 mg IV Q8HR PRN PRN Reason: Nausea And Vomiting Discontinued Medications Furosemide (Furosemide 40 Mg/4 Ml Vial) 40 mg IV NOW ONE Stop: 02/23/23 18:01 Last Admin: 02/23/23 18:18 Dose: 40 mg Documented By: SORAIDA Furosemide (Furosemide 20 Mg/2 Ml Vial) 40 mg IV BID [facility] Sodium Chloride (Normal Saline 0.9%) 2,076.54 mls @ 692.18 mls/hr 30 ml/kg infuse over 3 hr (2076.54 ml) IV NOW ONE Stop: 02/23/23 20:08 Last Infusion: 02/23/23 18:17 Dose: 0 mls/hr Documented By: Admin: 02/23/23 17:26 Dose: 692.18 mls/hr Documented By: SORAIDA Ceftriaxone Sodium 2,000 mg/ (Sodium Chloride) 100 mls @ 200 mls/hr IV NOW ONE Stop: 02/23/23 17:10 Last Infusion: 02/23/23 18:12 Dose: Infused Documented By: Admin: 02/23/23 17:36 Dose: 200 mls/hr Documented By: SORAIDA Meclizine HCl (Meclizine Hcl 12.5 Mg Tablet) 0 mg PO QID PRN PRN Reason: dizziness Morphine Sulfate (Morphine Er 30 Mg Tablet) 30 mg PO BID [facility] Non-Formulary Medication (Magnesium Gluconate) 27.5 mg PO DAILY [facility] Last Admin: 02/24/23 09:19 Dose: Not Given Documented By: YOSI Non-Formulary Medication (Tiotropium [place] [Spiriva Respimat]) 2 puff INHALATION QAM [facility] Ondansetron HCl (Ondansetron 4 Mg Odt) 4 mg SL NOW PRN PRN Reason: Nausea And Vomiting Last Admin: 02/23/23 22:46 Dose: 4 mg Documented By: Vital Signs Vital signs: Vital Signs - 8 hr 02/23/23 15:55 02/23/23 16:00 02/23/23 16:45 Temperature 100.5 F H Pulse Rate 94 H Respiratory Rate 32 H 32 H Blood Pressure 167/102 H 125/67 Pulse Oximetry 88 L 88 L Oxygen Delivery Method Room Air Room Air Oxygen Flow Rate 02/23/23 16:59 02/23/23 17:00 02/23/23 17:00 Temperature Pulse Rate 90 90 Respiratory Rate 42 H 44 H Blood Pressure 138/85 Pulse Oximetry 100 98 Oxygen Delivery Method Nasal Cannula Oxygen Flow Rate 2 02/23/23 17:01 02/23/23 17:01 02/23/23 17:19 Temperature Pulse Rate 90 96 H Respiratory Rate 40 H 36 H Blood Pressure 146/66 H Pulse Oximetry 95 92 Oxygen Delivery Method Oxygen Flow Rate 02/23/23 17:30 02/23/23 17:30 02/23/23 17:45 Temperature Pulse Rate 85 Respiratory Rate 30 H Blood Pressure 141/79 H 119/71 Pulse Oximetry 98 Oxygen Delivery Method Oxygen Flow Rate 02/23/23 17:45 02/23/23 18:00 02/23/23 18:00 Temperature Pulse Rate 87 82 Respiratory Rate 23 Blood Pressure 116/69 Pulse Oximetry 98 97 Oxygen Delivery Method Oxygen Flow Rate 02/23/23 18:15 02/23/23 18:21 02/23/23 18:21 Temperature Pulse Rate 82 86 Respiratory Rate 24 28 H Blood Pressure 123/75 Pulse Oximetry 98 99 Oxygen Delivery Method Nasal Cannula Oxygen Flow Rate 1 02/23/23 18:30 02/23/23 18:30 02/23/23 18:45 Temperature Pulse Rate 85 Respiratory Rate Blood Pressure 143/70 H 133/71 Pulse Oximetry 98 Oxygen Delivery Method Nasal Cannula Oxygen Flow Rate 2 02/23/23 18:45 02/23/23 18:57 02/23/23 19:00 Temperature Pulse Rate 84 87 Respiratory Rate 23 32 H Blood Pressure 149/93 H Pulse Oximetry 97 96 Oxygen Delivery Method Nasal Cannula Oxygen Flow Rate 2 02/23/23 19:02 02/23/23 19:15 02/23/23 19:15 Temperature Pulse Rate 100 H 87 Respiratory Rate 22 Blood Pressure 134/83 Pulse Oximetry Oxygen Delivery Method Oxygen Flow Rate 02/23/23 19:30 02/23/23 19:30 02/23/23 19:45 Temperature Pulse Rate 86 87 Respiratory Rate 23 Blood Pressure 137/83 Pulse Oximetry 98 99 Oxygen Delivery Method Oxygen Flow Rate 02/23/23 20:01 02/23/23 20:01 02/23/23 20:15 Temperature 98.4 F Pulse Rate 91 H 83 Respiratory Rate 28 H 24 Blood Pressure 144/86 H Pulse Oximetry 97 97 Oxygen Delivery Method Nasal Cannula Oxygen Flow Rate 2 02/23/23 20:30 02/23/23 20:30 02/23/23 20:45 Temperature Pulse Rate 86 83 Respiratory Rate 21 23 Blood Pressure 136/81 Pulse Oximetry 98 97 Oxygen Delivery Method Nasal Cannula Oxygen Flow Rate 1 02/23/23 20:58 02/23/23 20:58 02/23/23 21:00 Temperature Pulse Rate 92 H 91 H Respiratory Rate 25 H Blood Pressure 132/87 Pulse Oximetry 97 98 Oxygen Delivery Method Oxygen Flow Rate 02/23/23 21:00 Temperature Pulse Rate Respiratory Rate Blood Pressure 128/82 Pulse Oximetry Oxygen Delivery Method Oxygen Flow Rate Medical Decision Making <Dony Camp, DO - Last Filed: 02/24/23 09:22> Lab Data 02/23/23 16:15 02/24/23 03:45 Labs: Lab Results 02/23/23 02/23/23 02/23/23 Range/Units 15:58 16:15 17:25 WBC 10.5 (4.5-11.0) X10^3/uL RBC 3.96 L (4.0-5.2) X10^6/uL Hgb 11.9 L (12.0-16.0) g/dL Hct 36.4 (36-46) % MCV 91.8 (80-100) fL MCH 30.1 (26-34) PG MCHC 32.8 (30-36) % RDW 15.3 H (11.6-14.8) % Plt Count 256 (150-400) X10^3/uL Neut % (Auto) 81.9 H (50-75) % Lymph % (Auto) 13.0 L (25-40) % [place] % (Auto) 4.3 (3-14) % Eos % (Auto) 0.5 L (2-4) % Baso % (Auto) 0.3 (0-2) % Neut # (Auto) 8600 H (7214-5140) /uL Lymph # (Auto) 1400 (7678-6090) /uL [place] # (Auto) 500 (0-900) /uL Eos # (Auto) 100 (0-450) /uL Baso # (Auto) 0 (0-100) /uL PT 13.6 H (10.1-12.7) SECONDS INR 1.2 (0.9-1.3) APTT 35 (26-36) SECONDS ABG pH (7.35-7.45) ABG pCO2 (35-45) mmHg ABG pO2 (80-100) mmHg ABG HCO3 (23-27) mmol/L ABG Total CO2 (23-27) mmol/L ABG O2 Saturation (95-100) % ABG Base Excess (-2-3) mmol/L FiO2 Sodium 135 L (137-145) mmol/L Potassium 4.8 (3.4-5.1) mmol/L Chloride 102 (98-107) mmol/L Carbon Dioxide 28 (22-32) mmol/L BUN 17 (7-17) mg/dL Creatinine 0.98 (0.52-1.04) mg/dL Estimated GFR 57 L (>60) mL/min BUN/Creatinine Ratio 17.3 (6-22) Glucose 153 H (80-110) mg/dL Lactate 1.5 (0.7-2.1) mmol/L Calcium 9.4 (8.4-10.2) mg/dL Total Bilirubin 0.7 (0.2-1.3) mg/dL AST 29 (14-36) IU/L ALT 15 (<35) IU/L Alkaline Phosphatase 70 (38-126) U/L Total Creatine Kinase 25 L (30-135) U/L Troponin I 0.133 H* (0.01-0.034) ng/mL NT-Pro-B Natriuret Pep 38632 H (<450) pg/mL Total Protein 6.2 L (6.3-8.2) g/dL Albumin 3.1 L (3.5-5.0) g/dL Globulin 3.1 (1.7-4.1) g/dL Albumin/Globulin Ratio 1.0 (1.0-2.8) Lipase 26 (23-300) U/L Procalcitonin 0.08 (<0.5) ng/mL Urine Color Yellow Urine Appearance Clear Urine pH 5.5 (4.5-8.0) Ur Specific [place] 1.020 (1.000-1.035) Urine Protein Negative (Negative) Urine Glucose (UA) Negative (Negative) g/dL Urine Ketones Negative (NEGATIVE) Urine Occult Blood 2+ H (Negative) Urine Nitrate Negative (Negative) Urine Bilirubin Negative (NEGATIVE) Urine Urobilinogen 0.2 (0.2) E.U./dL Ur Leukocyte Esterase Negative (NEGATIVE) Urine RBC 5-10/hpf H (0-5/HPF) Urine WBC 1-5/hpf (0-5/HPF) Ur Squamous Epith Cells 0-1 /hpf (0-5/HPF) Urine Bacteria Occasional (0-1) (None) Hyaline Casts 5-10/lpf (None) Urine Mucus 1+ H (Negative) Ur Culture Indicated? Cult not indicated Chlamy pneumoniae PCR Not detected (Not Detect) Adenovirus (PCR) Not detected (Not Detect) B.parapertussis DNA PCR Not detected (Not Detecte) Coronavirus OC43 (PCR) Not detected (Not Detect) Coronavirus HKU1 (PCR) Not detected (Not Detect) Coronavirus 229E (PCR) Not detected (Not Detect) SARS-CoV-2 (PCR) Negative Not detected (Negative) Coronavirus NL63 (PCR) Not detected (Not Detect) Human Metapneumovir PCR Not detected (Not Detect) Influenza Type A (PCR) Not detected (Not Detect) Influenza Type B (PCR) Not detected (Not Detect) M. pneumoniae (PCR) Not detected (Not Detect) Parainfluenza 1 (PCR) Not detected (Not Detect) Parainfluenza 2 (PCR) Not detected (Not Detect) Parainfluenza 3 (PCR) Not detected (Not Detect) Parainfluenza 4 (PCR) Not detected (Not Detect) RSV (PCR) Not detected (Not Detect) Entero/Rhino (PCR) Not detected (Not Detect) 02/23/23 02/23/23 Range/Units 17:39 19:15 WBC (4.5-11.0) X10^3/uL RBC (4.0-5.2) X10^6/uL Hgb (12.0-16.0) g/dL Hct (36-46) % MCV (80-100) fL MCH (26-34) PG MCHC (30-36) % RDW (11.6-14.8) % Plt Count (150-400) X10^3/uL Neut % (Auto) (50-75) % Lymph % (Auto) (25-40) % [place] % (Auto) (3-14) % Eos % (Auto) (2-4) % Baso % (Auto) (0-2) % Neut # (Auto) (6041-1333) /uL Lymph # (Auto) (2366-3604) /uL [place] # (Auto) (0-900) /uL Eos # (Auto) (0-450) /uL Baso # (Auto) (0-100) /uL PT (10.1-12.7) SECONDS INR (0.9-1.3) APTT (26-36) SECONDS ABG pH 7.38 (7.35-7.45) ABG pCO2 44.7 (35-45) mmHg ABG pO2 95 (80-100) mmHg ABG HCO3 27 (23-27) mmol/L ABG Total CO2 28 H (23-27) mmol/L ABG O2 Saturation 97 (95-100) % ABG Base Excess 1.0 (-2-3) mmol/L FiO2 28 Sodium (137-145) mmol/L Potassium (3.4-5.1) mmol/L Chloride (98-107) mmol/L Carbon Dioxide (22-32) mmol/L BUN (7-17) mg/dL Creatinine (0.52-1.04) mg/dL Estimated GFR (>60) mL/min BUN/Creatinine Ratio (6-22) Glucose (80-110) mg/dL Lactate (0.7-2.1) mmol/L Calcium (8.4-10.2) mg/dL Total Bilirubin (0.2-1.3) mg/dL AST (14-36) IU/L ALT (<35) IU/L Alkaline Phosphatase (38-126) U/L Total Creatine Kinase (30-135) U/L Troponin I 0.161 H* (0.01-0.034) ng/mL NT-Pro-B Natriuret Pep (<450) pg/mL Total Protein (6.3-8.2) g/dL Albumin (3.5-5.0) g/dL Globulin (1.7-4.1) g/dL Albumin/Globulin Ratio (1.0-2.8) Lipase (23-300) U/L Procalcitonin (<0.5) ng/mL Urine Color Urine Appearance Urine pH (4.5-8.0) Ur Specific [place] (1.000-1.035) Urine Protein (Negative) Urine Glucose (UA) (Negative) g/dL Urine Ketones (NEGATIVE) Urine Occult Blood (Negative) Urine Nitrate (Negative) Urine Bilirubin (NEGATIVE) Urine Urobilinogen (0.2) E.U./dL Ur Leukocyte Esterase (NEGATIVE) Urine RBC (0-5/HPF) Urine WBC (0-5/HPF) Ur Squamous Epith Cells (0-5/HPF) Urine Bacteria (None) Hyaline Casts (None) Urine Mucus (Negative) Ur Culture Indicated? Chlamy pneumoniae PCR (Not Detect) Adenovirus (PCR) (Not Detect) B.parapertussis DNA PCR (Not Detecte) Coronavirus OC43 (PCR) (Not Detect) Coronavirus HKU1 (PCR) (Not Detect) Coronavirus 229E (PCR) (Not Detect) SARS-CoV-2 (PCR) (Negative) Coronavirus NL63 (PCR) (Not Detect) Human Metapneumovir PCR (Not Detect) Influenza Type A (PCR) (Not Detect) Influenza Type B (PCR) (Not Detect) M. pneumoniae (PCR) (Not Detect) Parainfluenza 1 (PCR) (Not Detect) Parainfluenza 2 (PCR) (Not Detect) Parainfluenza 3 (PCR) (Not Detect) Parainfluenza 4 (PCR) (Not Detect) RSV (PCR) (Not Detect) Entero/Rhino (PCR) (Not Detect) <Walt Garzon, - Last Filed: 02/23/23 22:32> Lab Data Labs: Lab Results 02/23/23 02/23/23 02/23/23 Range/Units 15:58 16:15 17:25 WBC 10.5 (4.5-11.0) X10^3/uL RBC 3.96 L (4.0-5.2) X10^6/uL Hgb 11.9 L (12.0-16.0) g/dL Hct 36.4 (36-46) % MCV 91.8 (80-100) fL MCH 30.1 (26-34) PG MCHC 32.8 (30-36) % RDW 15.3 H (11.6-14.8) % Plt Count 256 (150-400) X10^3/uL Neut % (Auto) 81.9 H (50-75) % Lymph % (Auto) 13.0 L (25-40) % [place] % (Auto) 4.3 (3-14) % Eos % (Auto) 0.5 L (2-4) % Baso % (Auto) 0.3 (0-2) % Neut # (Auto) 8600 H (1385-3664) /uL Lymph # (Auto) 1400 (8956-7044) /uL [place] # (Auto) 500 (0-900) /uL Eos # (Auto) 100 (0-450) /uL Baso # (Auto) 0 (0-100) /uL PT 13.6 H (10.1-12.7) SECONDS INR 1.2 (0.9-1.3) APTT 35 (26-36) SECONDS ABG pH (7.35-7.45) ABG pCO2 (35-45) mmHg ABG pO2 (80-100) mmHg ABG HCO3 (23-27) mmol/L ABG Total CO2 (23-27) mmol/L ABG O2 Saturation (95-100) % ABG Base Excess (-2-3) mmol/L FiO2 Sodium 135 L (137-145) mmol/L Potassium 4.8 (3.4-5.1) mmol/L Chloride 102 (98-107) mmol/L Carbon Dioxide 28 (22-32) mmol/L BUN 17 (7-17) mg/dL Creatinine 0.98 (0.52-1.04) mg/dL Estimated GFR 57 L (>60) mL/min BUN/Creatinine Ratio 17.3 (6-22) Glucose 153 H (80-110) mg/dL Lactate 1.5 (0.7-2.1) mmol/L Calcium 9.4 (8.4-10.2) mg/dL Total Bilirubin 0.7 (0.2-1.3) mg/dL AST 29 (14-36) IU/L ALT 15 (<35) IU/L Alkaline Phosphatase 70 (38-126) U/L Total Creatine Kinase 25 L (30-135) U/L Troponin I 0.133 H* (0.01-0.034) ng/mL NT-Pro-B Natriuret Pep 66641 H (<450) pg/mL Total Protein 6.2 L (6.3-8.2) g/dL Albumin 3.1 L (3.5-5.0) g/dL Globulin 3.1 (1.7-4.1) g/dL Albumin/Globulin Ratio 1.0 (1.0-2.8) Lipase 26 (23-300) U/L Procalcitonin 0.08 (<0.5) ng/mL Urine Color Yellow Urine Appearance Clear Urine pH 5.5 (4.5-8.0) Ur Specific [place] 1.020 (1.000-1.035) Urine Protein Negative (Negative) Urine Glucose (UA) Negative (Negative) g/dL Urine Ketones Negative (NEGATIVE) Urine Occult Blood 2+ H (Negative) Urine Nitrate Negative (Negative) Urine Bilirubin Negative (NEGATIVE) Urine Urobilinogen 0.2 (0.2) E.U./dL Ur Leukocyte Esterase Negative (NEGATIVE) Urine RBC 5-10/hpf H (0-5/HPF) Urine WBC 1-5/hpf (0-5/HPF) Ur Squamous Epith Cells 0-1 /hpf (0-5/HPF) Urine Bacteria Occasional (0-1) (None) Hyaline Casts 5-10/lpf (None) Urine Mucus 1+ H (Negative) Ur Culture Indicated? Cult not indicated Chlamy pneumoniae PCR Not detected (Not Detect) Adenovirus (PCR) Not detected (Not Detect) B.parapertussis DNA PCR Not detected (Not Detecte) Coronavirus OC43 (PCR) Not detected (Not Detect) Coronavirus HKU1 (PCR) Not detected (Not Detect) Coronavirus 229E (PCR) Not detected (Not Detect) SARS-CoV-2 (PCR) Negative Not detected (Negative) Coronavirus NL63 (PCR) Not detected (Not Detect) Human Metapneumovir PCR Not detected (Not Detect) Influenza Type A (PCR) Not detected (Not Detect) Influenza Type B (PCR) Not detected (Not Detect) M. pneumoniae (PCR) Not detected (Not Detect) Parainfluenza 1 (PCR) Not detected (Not Detect) Parainfluenza 2 (PCR) Not detected (Not Detect) Parainfluenza 3 (PCR) Not detected (Not Detect) Parainfluenza 4 (PCR) Not detected (Not Detect) RSV (PCR) Not detected (Not Detect) Entero/Rhino (PCR) Not detected (Not Detect) 02/23/23 02/23/23 Range/Units 17:39 19:15 WBC (4.5-11.0) X10^3/uL RBC (4.0-5.2) X10^6/uL Hgb (12.0-16.0) g/dL Hct (36-46) % MCV (80-100) fL MCH (26-34) PG MCHC (30-36) % RDW (11.6-14.8) % Plt Count (150-400) X10^3/uL Neut % (Auto) (50-75) % Lymph % (Auto) (25-40) % [place] % (Auto) (3-14) % Eos % (Auto) (2-4) % Baso % (Auto) (0-2) % Neut # (Auto) (2085-8862) /uL Lymph # (Auto) (1234-2140) /uL [place] # (Auto) (0-900) /uL Eos # (Auto) (0-450) /uL Baso # (Auto) (0-100) /uL PT (10.1-12.7) SECONDS INR (0.9-1.3) APTT (26-36) SECONDS ABG pH 7.38 (7.35-7.45) ABG pCO2 44.7 (35-45) mmHg ABG pO2 95 (80-100) mmHg ABG HCO3 27 (23-27) mmol/L ABG Total CO2 28 H (23-27) mmol/L ABG O2 Saturation 97 (95-100) % ABG Base Excess 1.0 (-2-3) mmol/L FiO2 28 Sodium (137-145) mmol/L Potassium (3.4-5.1) mmol/L Chloride (98-107) mmol/L Carbon Dioxide (22-32) mmol/L BUN (7-17) mg/dL Creatinine (0.52-1.04) mg/dL Estimated GFR (>60) mL/min BUN/Creatinine Ratio (6-22) Glucose (80-110) mg/dL Lactate (0.7-2.1) mmol/L Calcium (8.4-10.2) mg/dL Total Bilirubin (0.2-1.3) mg/dL AST (14-36) IU/L ALT (<35) IU/L Alkaline Phosphatase (38-126) U/L Total Creatine Kinase (30-135) U/L Troponin I 0.161 H* (0.01-0.034) ng/mL NT-Pro-B Natriuret Pep (<450) pg/mL Total Protein (6.3-8.2) g/dL Albumin (3.5-5.0) g/dL Globulin (1.7-4.1) g/dL Albumin/Globulin Ratio (1.0-2.8) Lipase (23-300) U/L Procalcitonin (<0.5) ng/mL Urine Color Urine Appearance Urine pH (4.5-8.0) Ur Specific [place] (1.000-1.035) Urine Protein (Negative) Urine Glucose (UA) (Negative) g/dL Urine Ketones (NEGATIVE) Urine Occult Blood (Negative) Urine Nitrate (Negative) Urine Bilirubin (NEGATIVE) Urine Urobilinogen (0.2) E.U./dL Ur Leukocyte Esterase (NEGATIVE) Urine RBC (0-5/HPF) Urine WBC (0-5/HPF) Ur Squamous Epith Cells (0-5/HPF) Urine Bacteria (None) Hyaline Casts (None) Urine Mucus (Negative) Ur Culture Indicated? Chlamy pneumoniae PCR (Not Detect) Adenovirus (PCR) (Not Detect) B.parapertussis DNA PCR (Not Detecte) Coronavirus OC43 (PCR) (Not Detect) Coronavirus HKU1 (PCR) (Not Detect) Coronavirus 229E (PCR) (Not Detect) SARS-CoV-2 (PCR) (Negative) Coronavirus NL63 (PCR) (Not Detect) Human Metapneumovir PCR (Not Detect) Influenza Type A (PCR) (Not Detect) Influenza Type B (PCR) (Not Detect) M. pneumoniae (PCR) (Not Detect) Parainfluenza 1 (PCR) (Not Detect) Parainfluenza 2 (PCR) (Not Detect) Parainfluenza 3 (PCR) (Not Detect) Parainfluenza 4 (PCR) (Not Detect) RSV (PCR) (Not Detect) Entero/Rhino (PCR) (Not Detect) ECG Data Attestation: I personally reviewed and interpreted this ECG as follows: Interpretation: Presentation EKG Sinus rhythm Ventricular rate 89 Normal QRS Normal axis Nonspecific ST T wave changes Repeat EKG Sinus rhythm Ventricular rate 87 Occasional PACs Normal axis Unchanged from previous EKG MDM Narrative Medical decision making narrative: Dr garzon: Received turned over. Review patient's history and physical. Review patient's workup up to this point. Dr. Camp has already spoken with Dr. White picker box operator on-call about the patient. Cardiology recommended admission to the hospital, trending troponins, diuresis and echocardiogram. Patient's repeat troponin is slightly higher than initial however EKG is unchanged. Patient has had some diuresis after Lasix. I discussed the case with Dr. Kong hospitalist on-call who will admit for further evaluation and treatment. Discharge Plan Departure Patient Disposition: Admitted As Inpatient Clinical Impression: CHF (congestive heart failure) Admit Date/Time: 02/23/23 21:02 Admit Provider: Andrey Kong
[2023-02-23] MEDS: SODIUM CHLORIDE 0.9% 692.18 ML IV (17:26)
[2023-02-23 17:36] LABS: Appearance Urine UA CLEAR; Bilirubin Urine UA NEGATIVE (NEGATIVE); Color Urine UA YELLOW; Glucose Urine UA NEGATIVE (Negative); Ketones Urine UA NEGATIVE (NEGATIVE); Leukocyte Esterase Urine UA NEGATIVE (NEGATIVE); Nitrite Urine UA NEGATIVE (Negative); Occult Blood Urine UA 2+ (Negative); Protein Urine UA NEGATIVE (Negative); Urobilinogen Urine UA 0.2 E.U./dL (0.2)
[2023-02-23] MEDS: cefTRIAXone 2,000 MG in SODIUM CHLORIDE 0.9% 100 ML 200 MG IV (17:36)
[2023-02-23 17:37] LABS: pH Urine UA 5.5 (4.5-8.0)
[2023-02-23 17:41] LABS: Bacteria Urine Occasional (0-1); Mucus Urine 1+ (Negative); RBC Urine 5-10/HPF (0-5/HPF); Squamous Epithelial Cell Urine 0-1 /HPF (0-5/HPF); WBC Urine 1-5/HPF (0-5/HPF)
[2023-02-23 17:42] LABS: Culture Indicated Urine Cult Not Indicated; Hyaline Casts Urine 5-10/LPF
[2023-02-23 17:53] LABS: Fractionated Inspired Oxygen 28; HCO3 ABG 27 mmol/L (23-27); Oxygen Saturation ABG 97 % (95-100); PCO2 ABG 44.7 mmHg (35-45); PO2 ABG 95 mmHg (80-100); TCO2 ABG 28 mmol/L (23-27); pH ABG 7.38 (7.35-7.45)
[2023-02-23] MEDS: FUROSEMIDE 40 MG/4 ML VIAL IV (18:18)
[2023-02-23 18:21] LABS: Adenovirus Not Detected (Not Detect); B. parapertussis Not Detected (Not Detecte); Bordetella pertussis Not Detected (Not Detect); Chlamydophila pneumoniae Not Detected (Not Detect); Coronavirus 229E Not Detected (Not Detect); Coronavirus HKU1 Not Detected (Not Detect); Coronavirus NL 63 Not Detected (Not Detect); Coronavirus OC43 Not Detected (Not Detect); Human Metapneumovirus Not Detected (Not Detect); Human Rhinovirus/Enterovirus Not Detected (Not Detect); Influenza A Not Detected (Not Detect); Influenza B Not Detected (Not Detect); Mycoplasma pneumoniae Not Detected (Not Detect); Parainfluenza Virus 1 Not Detected (Not Detect); Parainfluenza Virus 2 Not Detected (Not Detect); Parainfluenza Virus 3 Not Detected (Not Detect); Parainfluenza Virus 4 Not Detected (Not Detect); Respiratory Syncytial Virus Not Detected (Not Detect); SARS- CoV-2 Not Detected (Not Detecte)
[2023-02-23 19:59] LABS: Troponin I 0.161 ng/mL (0.01-0.034)
[2023-02-23 21:47] LABS: Creatine Kinase 22 U/L (30-135)
[2023-02-23 22:12] LABS: Troponin I 0.166 ng/mL (0.01-0.034)
--- NOTE | 2023-02-23 22:16 | DI.ECHO.S_ITS ---
[facility] +---------+ : : [address] : : : : [id number] : : : : Phone: [phone]+ Echocardiogram Report + + :Name: JON ROJAS Study Date: 02/24/2023 Height: 60 in : :[facility] ReadingLocation: Weight: 125 lb : : Gender: Female BSA: 1.5 m2 : :: 1940 Age: 82 yrs BP: 130/82 mmHg: :Reason For Study: CONGESTIVE HEART FAILURE : :Ordering Physician: TUAN, : :SEBASTIÁN Performed By: Aura Villagomez : :Referring: SEBASTIÁN DICKERSON : + + Interpretation Summary Normal sinus rhythm. Normal LV size with moderate-severe concentric left ventricular hypertrophy. Mild cardiomyopathy with ejection fraction 35-40%. Stage II diastolic dysfunction. EPSS is 0.8 cm consistent with cardiomyopathy. D-shaped LV in systole and diastole consistent with right ventricular pressure overload. Unable to calculated PA systolic pressure due to lack of significant tricuspid regurgitation jet. Moderate left atrial enlargement ; otherwise normal chamber sizes. No significant valvular abnormalities. Moderate left pleural effusion. Compared to prior study January 05, 2022, LV is less dynamic. Diastolic dysfunction progressed from mild to moderate. Left pleural effusion is new Procedure: A two-dimensional transthoracic echocardiogram with color flow and Doppler was performed. The study quality was technically adequate. Comparison is made with the echocardiogram of 01/05/2022. The patient was in sinus bradycardia with heart rates between 74-80 bpm during the exam. Left Ventricle: The left ventricle is normal in size. There is moderate- severe concentric left ventricular hypertrophy. The ejection fraction is estimated to be 35-40%. Right Ventricle: The right ventricle is normal in size and function. Atria: The left atrium is moderately dilated. Right atrial size is normal. There is no Doppler evidence for an interatrial shunt. Mitral Valve: The mitral valve leaflets appear mildly thickened, but open well. There is mild mitral regurgitation. Aortic Valve: The aortic valve is trileaflet. The aortic valve opens well. There is no aortic valve stenosis. No aortic regurgitation is present. Tricuspid Valve: The tricuspid valve is normal in structure and function. There is a trace or physiologic amount of tricuspid regurgitation. Pulmonic Valve: The pulmonic valve leaflets are thin and pliable; valve motion is normal. There is mild pulmonic regurgitation. Great Vessels: The aortic root is normal size. The dimensions of the ascending aorta are normal. The IVC is dilated (diameter is greater than 2.1 cm) yet it collapses greater than 50% with a sniff. This suggests a right atrial pressure of 8 mm Hg. Pericardium/ Pleura There is no pericardial effusion. There is a moderate left-sided pleural effusion. MMode/2D Measurements & Calculations LVIDd: 4.4 cm LVOT diam: 2.1 cm LVIDs: 3.5 cm Ao root diam: 3.2 cm FS: 21.6 % asc Aorta Diam: 3.1 cm EPSS: 0.77 cm Ao Arch Diam (Prox Trans): 2.6 cm IVSd: 1.7 cm LVPWd: 1.2 cm LV cramer. diameter/BSA (cm/m^2): 2.9 LV sys. diameter/BSA (cm/m^2): 2.3 LA A2 area: 23.0 cm2 RA long axis: 4.4 cm LA A4 area: 22.6 cm2 RA area: 13.5 cm2 LA length (vol): 6.7 cm RA vol: 34.9 ml LA vol: 65.7 ml RA : 22.9 ml/m2 LA vol index: 43.0 ml/m2 IVC diam: 2.2 cm RVD1 (basal): 3.5 cm RVD2 (mid): 2.6 cm TAPSE: 1.9 cm Doppler Measurements & Calculations Ao V2 max: 82.6 cm/sec LVOT Max Esdras: 67.5 cm/sec Ao V2 mean: 63.8 cm/sec LV V1 max P.8 mmHg Ao max P.7 mmHg LV V1 VTI: 12.8 cm Ao mean P.7 mmHg GILBERT(I,D): 2.6 cm2 Ao V2 VTI: 16.8 cm GILBERT(V,D): 2.8 cm2 sev ratio: 0.76 GILBERT indexed to BSA (cm^2/m^2): 1.7 MV E max esdras: 55.0 cm/sec PA V2 max: 78.8 cm/sec MV A max esdras: 53.6 cm/sec PA V2 mean: 55.2 cm/sec MV E/A: 1.0 PA mean P.3 mmHg Med Peak E' Esdras: 3.3 cm/sec PA pr(Accel): 48.2 mmHg E/E' med: 16.8 MV dec time: 0.24 sec SV(LVOT): 43.0 ml Electronically signed by: Fiordaliza high [place] Physician:02/24/2023 02:36 PM
--- NOTE | 2023-02-23 22:37 | P.HP_ITS ---
History of Present Illness History of Present Illness Chief complaint: cp/sob/covid exposure, Narrative: 82 years old female with history of hypertension, CKD, hypothyroidism, chronic pain, vertigo, CHF, presented to the ER with chest tightness on exertion, dyspnea and ankle swelling in the last several days. Denies any cough, palpitations, fever, nausea, vomiting, abdominal pain, diarrhea or dysuria. Compliant to her home medications. Last seen by her doctor a month ago and there was not any change of her home medications. In the ER she was found to have heart failure, cardiology was consulted and recommended to be hospitalized for diuresis. Her labs shows WBC 10.5, BNP 24,100, troponin 0.133 initially and 0.161, UA shows trace hematuria, COVID-negative, EKG no ischemic changes, chest x-ray shows small/moderate left pleural effusion and possible trace right pleural effusion. [facility] Medical History Chronic pain syndrome Custody issue Subarachnoid hemorrhage following injury Edema of left lower leg Systolic congestive heart failure Chronic pain of left knee Benign paroxysmal positional vertigo Drug induced constipation Persistent dyspnea after COVID-19 Heart failure Dyspnea on exertion Body posture problem Chronic, continuous use of opioids Stage 3a chronic kidney disease Urge incontinence of urine Onychomycosis Segmental and somatic dysfunction of abdomen and other regions Sacral region somatic dysfunction Pelvic somatic dysfunction Lumbar region somatic dysfunction Thoracic region somatic dysfunction Cervical somatic dysfunction Cranial somatic dysfunction Chronic neck pain Vision disorder Hearing loss Cervical spine disease Carpal tunnel syndrome Shingles Rubella Mumps Measles Chicken pox Kidney stones Chronic low back pain B12 deficiency Hypothyroidism Surgical History Anesthesia History of surgery Family History Father No problems noted. Mother History of heart disease Hypertension Stroke Sister Linn Gehrig disease Sister Smoker Social History household members: friend(s) Smoking Status: Former smoker second hand exposure: Yes (occassional) alcohol intake: never substance use type: prescription drug Meds Home Medications and Allergies Home Medications Medication Instructions Recorded Confirmed Type multivitamin (Multiple Vitamins 1 tab PO QDAY ##0 01/09/17 02/23/23 History tablet) Disabled parking permit #1 ea 10/21/20 02/23/23 Rx walker #1 ea 02/23/21 02/23/23 Rx ondansetron 4 mg disintegrating 4 mg PO Q8H PRN nausea and 03/29/21 02/23/23 Rx tablet vomiting #20 tabs carvedilol 6.25 mg tablet 6.25 mg PO BID 01/17/22 02/23/23 History lisinopril 40 mg tablet 40 mg PO DAILY 01/17/22 02/23/23 History cyanocobalamin (vitamin B-12) 1,000 mcg IM QMONTH #1 mL 02/14/22 02/23/23 Rx 1,000 mcg/mL injection solution ferrous sulfate 325 mg (65 mg See Rx Instructions .Route 03/22/22 02/23/23 Rx iron) tablet (FeroSul) .COMPLEX #90 tabs methocarbamol 500 mg tablet See Rx Instructions .Route 05/02/22 02/23/23 Rx .COMPLEX #90 tabs apixaban 5 mg tablet (Eliquis) 2.5 mg (1/2 x 5 mg) PO BID #90 tabs 11/02/22 02/23/23 Rx fluoxetine 10 mg capsule 10 mg PO QPM #90 caps 12/08/22 02/23/23 Rx fluoxetine 20 mg capsule 20 mg PO DAILY #90 caps 12/08/22 02/23/23 Rx magnesium gluconate 27.5 mg 27.5 mg PO DAILY #90 tabs 12/08/22 02/23/23 Rx magnesium (500 mg) tablet tiotropium bromide 1.25 2 puff inhalation QAM #4 grams 12/08/22 02/23/23 Rx mcg/actuation mist for inhalation (Spiriva Respimat) levothyroxine 100 mcg tablet See Rx Instructions .Route 01/17/23 02/23/23 Rx .COMPLEX #90 tabs meclizine 25 mg tablet See Rx Instructions .Route 01/17/23 02/23/23 Rx .COMPLEX #60 tabs hydrochlorothiazide 12.5 mg capsule 12.5 mg PO DAILY #30 caps 01/31/23 02/23/23 Rx morphine 15 mg immediate release See Rx Instructions .Route 02/23/23 02/23/23 Rx tablet .COMPLEX #60 tabs morphine 30 mg tablet,extended See Rx Instructions .Route 02/23/23 02/23/23 Rx release .COMPLEX #60 tabs Allergies Allergy/AdvReac Type Severity Reaction Status Date / Time prochlorperazine Allergy Severe paralyZed Verified 12/29/22 10:57 [From COMPAZINE] throat codeine [CODEINE] Allergy Mild extremely Verified 12/29/22 10:57 nauseated pregabalin Allergy dizziness, Verified 12/29/22 10:57 difficulty walking Review of Systems Review of Systems ROS: Yes All systems reviewed with the patient and are negative except as otherwise documented Constitutional Constitutional: Reports as per HPI and Reports system reviewed and no additional complaints, except as documented Eyes Eyes: Reports as per HPI and Reports system reviewed and no additional complaints, except as documented ENT Ears, Nose, Mouth, and Throat: Yes as per HPI and Yes system reviewed and no additional complaints, except as documented Cardiovascular Cardiovascular: Reports system reviewed and no additional complaints, except as documented Respiratory Respiratory: Reports system reviewed and no additional complaints, except as documented Gastrointestinal Gastrointestinal: Reports system reviewed and no additional complaints, except as documented Genitourinary Genitourinary: Reports system reviewed and no additional complaints, except as documented Musculoskeletal Musculoskeletal: Reports system reviewed and no additional complaints, except as documented, Reports abnormal gait and Reports numbness Neurologic Neurologic: Reports system reviewed and no additional complaints, except as documented, Reports abnormal gait, Reports confusion and Reports numbness Psychiatric Psychiatric: Reports system reviewed and no additional complaints, except as documented and Reports confusion Exam Vital Signs (past 8 hours): - 02/23/23 15:55 02/23/23 16:00 02/23/23 16:45 Temperature 100.5 F H Pulse Rate 94 H Respiratory Rate 32 H 32 H Blood Pressure 167/102 H 125/67 Pulse Oximetry 88 L 88 L Oxygen Delivery Method Room Air Room Air Oxygen Flow Rate 02/23/23 16:59 02/23/23 17:00 02/23/23 17:00 Temperature Pulse Rate 90 90 Respiratory Rate 42 H 44 H Blood Pressure 138/85 Pulse Oximetry 100 98 Oxygen Delivery Method Nasal Cannula Oxygen Flow Rate 2 02/23/23 17:01 02/23/23 17:01 02/23/23 17:19 Temperature Pulse Rate 90 96 H Respiratory Rate 40 H 36 H Blood Pressure 146/66 H Pulse Oximetry 95 92 Oxygen Delivery Method Oxygen Flow Rate 02/23/23 17:30 02/23/23 17:30 02/23/23 17:45 Temperature Pulse Rate 85 Respiratory Rate 30 H Blood Pressure 141/79 H 119/71 Pulse Oximetry 98 Oxygen Delivery Method Oxygen Flow Rate 02/23/23 17:45 02/23/23 18:00 02/23/23 18:00 Temperature Pulse Rate 87 82 Respiratory Rate 23 Blood Pressure 116/69 Pulse Oximetry 98 97 Oxygen Delivery Method Oxygen Flow Rate 02/23/23 18:15 02/23/23 18:21 02/23/23 18:21 Temperature Pulse Rate 82 86 Respiratory Rate 24 28 H Blood Pressure 123/75 Pulse Oximetry 98 99 Oxygen Delivery Method Nasal Cannula Oxygen Flow Rate 1 02/23/23 18:30 02/23/23 18:30 02/23/23 18:45 Temperature Pulse Rate 85 Respiratory Rate Blood Pressure 143/70 H 133/71 Pulse Oximetry 98 Oxygen Delivery Method Nasal Cannula Oxygen Flow Rate 2 02/23/23 18:45 02/23/23 18:57 02/23/23 19:00 Temperature Pulse Rate 84 87 Respiratory Rate 23 32 H Blood Pressure 149/93 H Pulse Oximetry 97 96 Oxygen Delivery Method Nasal Cannula Oxygen Flow Rate 2 02/23/23 19:02 02/23/23 19:15 02/23/23 19:15 Temperature Pulse Rate 100 H 87 Respiratory Rate 22 Blood Pressure 134/83 Pulse Oximetry Oxygen Delivery Method Oxygen Flow Rate 02/23/23 19:30 02/23/23 19:30 02/23/23 19:45 Temperature Pulse Rate 86 87 Respiratory Rate 23 Blood Pressure 137/83 Pulse Oximetry 98 99 Oxygen Delivery Method Oxygen Flow Rate 02/23/23 20:01 02/23/23 20:01 02/23/23 20:15 Temperature 98.4 F Pulse Rate 91 H 83 Respiratory Rate 28 H 24 Blood Pressure 144/86 H Pulse Oximetry 97 97 Oxygen Delivery Method Nasal Cannula Oxygen Flow Rate 2 02/23/23 20:30 02/23/23 20:30 02/23/23 20:45 Temperature Pulse Rate 86 83 Respiratory Rate 21 23 Blood Pressure 136/81 Pulse Oximetry 98 97 Oxygen Delivery Method Nasal Cannula Oxygen Flow Rate 1 02/23/23 20:58 02/23/23 20:58 02/23/23 21:00 Temperature Pulse Rate 92 H 91 H Respiratory Rate 25 H Blood Pressure 132/87 Pulse Oximetry 97 98 Oxygen Delivery Method Oxygen Flow Rate 02/23/23 21:00 02/23/23 21:15 02/23/23 21:48 Temperature 96.8 F L Pulse Rate 80 90 Respiratory Rate 28 H Blood Pressure 128/82 138/78 Pulse Oximetry 96 93 Oxygen Delivery Method Nasal Cannula Oxygen Flow Rate 1 02/23/23 22:10 Temperature Pulse Rate Respiratory Rate 24 Blood Pressure Pulse Oximetry 98 Oxygen Delivery Method Oxygen Flow Rate 1 Oxygen Delivery Method Nasal Cannula Oxygen Flow Rate 1 Const General: cooperative, comfortable and well developed Orientation: alert and oriented x3 [facility] Head: normal to inspection, normocephalic and atraumatic Face and sinus: normal facial exam Mouth: oral mucosae normal and moist mucous membranes Throat: posterior oropharynx normal Eyes General: appearance normal, both eyes and all related structures Pupils: PERRL EOM: EOM intact bilaterally Neck Neck: normal visual inspection and full ROM Chest Chest: normal inspection of the chest Resp Effort & Inspection: normal respiratory effort and able to speak in complete sentences Auscultation: clear to auscultation bilaterally Cardio Palpation: normal PMI Rate: regular rate Rhythm: regular rhythm Heart Sounds: S1 normal and S2 normal GI Inspection: normal to inspection Palpation: soft and no hepatosplenomegaly Auscultation: normal bowel sounds Skin General: no rashes or lesions noted Lesions: no lesions Rashes: no rashes Trauma: no lacerations or abrasions Neuro General: patient alert, patient awake, patient oriented x3 and no focal motor deficits Cranial Nerves: CN's II-XI intact bilaterally Cognition: normal cognition Speech: speech normal Gait: normal gait Motor: muscle tone normal throughout Sensory Exam: no sensory deficits noted Extrem General: full ROM and no calf tenderness Psych Appearance: grossly normal Mental Status: mental status grossly normal Speech and Movement: speech and movement normal Objective Labs 02/23/23 16:15 02/23/23 16:15 Labs: Laboratory Results - last 24 hr 02/23/23 02/23/23 02/23/23 15:58 16:15 17:25 WBC 10.5 RBC 3.96 L Hgb 11.9 L Hct 36.4 MCV 91.8 MCH 30.1 MCHC 32.8 RDW 15.3 H Plt Count 256 Neut % (Auto) 81.9 H Lymph % (Auto) 13.0 L [place] % (Auto) 4.3 Eos % (Auto) 0.5 L Baso % (Auto) 0.3 Neut # (Auto) 8600 H Lymph # (Auto) 1400 [place] # (Auto) 500 Eos # (Auto) 100 Baso # (Auto) 0 PT 13.6 H INR 1.2 APTT 35 ABG pH ABG pCO2 ABG pO2 ABG HCO3 ABG Total CO2 ABG O2 Saturation ABG Base Excess FiO2 Sodium 135 L Potassium 4.8 Chloride 102 Carbon Dioxide 28 BUN 17 Creatinine 0.98 Estimated GFR 57 L BUN/Creatinine Ratio 17.3 Glucose 153 H Lactate 1.5 Calcium 9.4 Total Bilirubin 0.7 AST 29 ALT 15 Alkaline Phosphatase 70 Total Creatine Kinase 25 L Troponin I 0.133 H* NT-Pro-B Natriuret Pep 73565 H Total Protein 6.2 L Albumin 3.1 L Globulin 3.1 Albumin/Globulin Ratio 1.0 Lipase 26 Procalcitonin 0.08 Urine Color Yellow Urine Appearance Clear Urine pH 5.5 Ur Specific Reading 1.020 Urine Protein Negative Urine Glucose (UA) Negative Urine Ketones Negative Urine Occult Blood 2+ H Urine Nitrate Negative Urine Bilirubin Negative Urine Urobilinogen 0.2 Ur Leukocyte Esterase Negative Urine RBC 5-10/hpf H Urine WBC 1-5/hpf Ur Squamous Epith Cells 0-1 /hpf Urine Bacteria Occasional (0-1) Hyaline Casts 5-10/lpf Urine Mucus 1+ H Ur Culture Indicated? Cult not indicated Chlamy pneumoniae PCR Not detected Adenovirus (PCR) Not detected B.parapertussis DNA PCR Not detected Coronavirus OC43 (PCR) Not detected Coronavirus HKU1 (PCR) Not detected Coronavirus 229E (PCR) Not detected SARS-CoV-2 (PCR) Negative Not detected Coronavirus NL63 (PCR) Not detected Human Metapneumovir PCR Not detected Influenza Type A (PCR) Not detected Influenza Type B (PCR) Not detected M. pneumoniae (PCR) Not detected Parainfluenza 1 (PCR) Not detected Parainfluenza 2 (PCR) Not detected Parainfluenza 3 (PCR) Not detected Parainfluenza 4 (PCR) Not detected RSV (PCR) Not detected Entero/Rhino (PCR) Not detected 02/23/23 02/23/23 02/23/23 17:39 19:15 21:28 WBC RBC Hgb Hct MCV MCH MCHC RDW Plt Count Neut % (Auto) Lymph % (Auto) [place] % (Auto) Eos % (Auto) Baso % (Auto) Neut # (Auto) Lymph # (Auto) [place] # (Auto) Eos # (Auto) Baso # (Auto) PT INR APTT ABG pH 7.38 ABG pCO2 44.7 ABG pO2 95 ABG HCO3 27 ABG Total CO2 28 H ABG O2 Saturation 97 ABG Base Excess 1.0 FiO2 28 Sodium Potassium Chloride Carbon Dioxide BUN Creatinine Estimated GFR BUN/Creatinine Ratio Glucose Lactate Calcium Total Bilirubin AST ALT Alkaline Phosphatase Total Creatine Kinase 22 L Troponin I 0.161 H* 0.166 H* NT-Pro-B Natriuret Pep Total Protein Albumin Globulin Albumin/Globulin Ratio Lipase Procalcitonin Urine Color Urine Appearance Urine pH Ur Specific Reading Urine Protein Urine Glucose (UA) Urine Ketones Urine Occult Blood Urine Nitrate Urine Bilirubin Urine Urobilinogen Ur Leukocyte Esterase Urine RBC Urine WBC Ur Squamous Epith Cells Urine Bacteria Hyaline Casts Urine Mucus Ur Culture Indicated? Chlamy pneumoniae PCR Adenovirus (PCR) B.parapertussis DNA PCR Coronavirus OC43 (PCR) Coronavirus HKU1 (PCR) Coronavirus 229E (PCR) SARS-CoV-2 (PCR) Coronavirus NL63 (PCR) Human Metapneumovir PCR Influenza Type A (PCR) Influenza Type B (PCR) M. pneumoniae (PCR) Parainfluenza 1 (PCR) Parainfluenza 2 (PCR) Parainfluenza 3 (PCR) Parainfluenza 4 (PCR) RSV (PCR) Entero/Rhino (PCR) Assessment & Plan Assessment and plan (1) CHF (congestive heart failure): Status: Acute Plan: -Monitor I and O; daily standing weight; -diuresis with Lasix as BP can tolerate. -check BNP and repeat in 48 hours; low sodium diet -Monitor effectiveness of diuresis. Monitor renal function. -keep potassium> 4 and magnesium> 2 -Telemetry monitoring, Serial cardiac enzymes -Echo -Resume BB/ACEI -Supplemental O2 as needed, goal SpO2> 90% (2) Hypothyroidism: Qualifiers: Hypothyroidism type: acquired Qualified Code(s): E03.9 - Hypothyroidism, unspecified Status: Acute Plan: Restart levothyroxine and check TSH (3) Stage 3a chronic kidney disease: Status: Acute Plan: Stable. Daily BMP. Avoid nephrotoxic medications. (4) BPPV (benign paroxysmal positional vertigo): Qualifiers: Laterality: unspecified laterality Qualified Code(s): H81.10 - Benign paroxysmal vertigo, unspecified ear Status: Acute Plan: Restart meclizine (5) Chronic low back pain: Qualifiers: Back pain laterality: bilateral Sciatica presence: with sciatica S ciatica laterality: bilateral sciatica Qualified Code(s): M54.42 - Lumbago with sciatica, left side; M54.41 - Lumbago with sciatica, right side; G89.29 - Other chronic pain Status: Chronic Plan: Restart home medications Time Spent With Patient Time with patient: 50 to 69 minutes with 50% spent counseling/coordinating care Quality VTE Deep Vein Thrombosis/Pulmonary Embolism Present on Admission: No MIPS - Admit I confirm the patient?s Advance Care Plan is present, Code status is documented, Surrogate decision maker is in patient?s record [If Yes, STOP here]: Yes MIPS - Meds 'Current medications' to include all prescriptions, [id number] products, herbals, cannabis/cannabidiol products, and vitamin/mineral/dietary (nutritional) supplements. I have utilized all available resources to obtain, update, or review the patient?s current medications. [If Yes, STOP here]: Yes
[2023-02-23] MEDS: ONDANSETRON 4 MG ODT SL (22:46)
[2023-02-23] MEDS: LEVOTHYROXINE 100 MCG TABLET PO (22:47)
[2023-02-24] VITALS (11 sets, daily range): BP systolic 102–130; BP diastolic 55–82; PULSE 63–88; RESP 16–22; TEMP 36.2–37.3; O2SAT 90–99
[2023-02-24 04:10] LABS: Cholesterol 137 mg/dL (140-199); HDL Cholesterol 38 mg/dL (40-60); LDL Cholesterol Calculated 80 mg/dL (<100); Triglycerides 97 mg/dL (35-150)
[2023-02-24 04:20] LABS: BUN Creatinine Ratio 16.7 (6-22); Blood Urea Nitrogen 17 mg/dL (7-17); Carbon Dioxide 31 mmol/L (22-32); Chloride 99 mmol/L (98-107); Estimated Glomerular Filt Rate 55 mL/min (>60); Glucose 118 mg/dL (80-110); HEMOLYSIS 20 (0-50); Potassium 4.4 mmol/L (3.4-5.1); Sodium 135 mmol/L (137-145)
[2023-02-24 04:30] LABS: Troponin I 0.184 ng/mL (0.01-0.034)
[2023-02-24 04:49] LABS: Thyroid Stimulating Hormone 3.82 uIU/mL (0.47-4.68)
[2023-02-24] MEDS: ONDANSETRON 4 MG ODT PO (06:04)
[2023-02-24] MEDS: LEVOTHYROXINE 100 MCG TABLET PO (06:51)
[2023-02-24] MEDS: carvediloL 3.125 MG TABLET 6.25 MG PO ×2 (08:35→20:09)
[2023-02-24] MEDS: FERROUS SULFATE 325 MG TABLET PO (08:35)
[2023-02-24] MEDS: FLUoxetine 20 MG CAPSULE PO (08:35)
[2023-02-24] MEDS: lisinopriL 20 MG TABLET 40 MG PO (08:36)
[2023-02-24] MEDS: APIXABAN 5 MG TABLET 2.5 MG PO ×2 (08:36→20:08)
[2023-02-24] MEDS: FUROSEMIDE 20 MG/2 ML VIAL 40 MG IV (08:37)
[2023-02-24] MEDS: MORPHINE ER 15 MG TABLET 30 MG PO ×2 (08:47→20:08)
[2023-02-24] MEDS: MORPHINE IR 15 MG TABLET PO ×2 (08:48→16:18)
[2023-02-24] MEDS: ALBUTEROL 2.5 MG/3 ML NEB (ADULT) INH ×2 (09:43→13:54)
[2023-02-24] MEDS: IPRATROPIUM 0.5 MG/2.5 ML NEB INH ×3 (09:44→20:10)
[2023-02-24] MEDS: MAGNESIUM OXIDE 400 MG TABLET 200 MG PO (09:50)
[2023-02-24 11:22] LABS: Troponin I 0.221 ng/mL (0.01-0.034)
--- NOTE | 2023-02-24 14:58 | CM.DANOTE ---
DCP Assessment Note: Patient is an 82yo F here for CHF exacerbation with an extensive PMH. PCP Olegario Rubio Payer Medicare and Medicaid WIRELESS OPERATOR reviewed EMR. Per RN, patient up and moving, A/Ox4, and currently on 1ltr of O2 but does not use O2 at baseline. Per provider, patient will likely be here a few days. WIRELESS OPERATOR entered room and introduced self and role. Patient reprots living with 16yr old granddaughter in [place]. Patient request her emergency contact be here son René ([phone]). Patient at first claimed René was not her son, but then stated he's my son in every way that counts and did not wish to elaborate more. René is currently staying with her granddaughter while patient is hospitalized. René assists with patient's home chores, shopping, bringing groceries, transportation, and additional miscellaneous needs. Patient reports she is IADLs at baseline. Patient has a walker that she uses when she leaves the house. Has shower seat and grab bars throughout the house. Patient does not drive. René primarily drives for her and is the plan to transport home from hospital. Patient's main concern is with her Medicaid. She received notice that she does not have Medicaid anymore. Patient has Medicaid in chart information currently (policy number [id number]). Patient was hopeful to continue to receive Medicaid. Patient reports having HH in past but could not remember name. patient is open to it if needed. Plan: pending how patient's medical needs progress. Likely home with family when stable. Transport with René. Cm team will continue to follow closely. RAMONA Sagastume Discharge Planning/Care Management CM Discharge Assessment Start: 02/24/23 14:54 Freq: Status: Active Protocol: Document 02/24/23 14:55 MARY KATE (Rec: 02/24/23 14:58 [id number]) Discharge Planning Assessment Assigned Assembly Machine Set Up Mechanic RAMONA Goff DPOA/Assigned Designee Name René Damon (son? family friend?) Contact Information [phone] Advance Directives? No Advance Directives on File No History Provided By Patient,Medical Record Prior Living Arrangements House Household Members other Comment 16yr old grandchild. son René is staying with her now caring for her. Type of transporation used prior to Relies on Others admit Comment used Medicaid transport in past but got something in the mail that told her she was no longer able to use their transport services? Independent with ADL's Yes Is patient alert and oriented? Yes Needs Assistance With Home Chores / Shopping Comment René brings her her groceries. Community Services used prior to Transportation admission: Comment used Medicaid transport in past. DME Already Rented / Owned Bath Bench,FWW / Walker Comment open to if needed Discharge Plan Home Transportation Arrangement Granddaughter or friend Referrals Initiated None needed Additional Comment She does not have current P.T. orders as of yet. Hospitalist will need to see patient. Whiteboard Updated in Patient Room with Yes name and ext. # of Assembly Machine Set Up Mechanic Review Status In Process Next Review Type Continued Stay Review
[2023-02-24] MEDS: FLUoxetine 10 MG CAPSULE PO (16:18)
[2023-02-24] MEDS: FUROSEMIDE 40 MG/4 ML VIAL IV (16:19)
--- NOTE | 2023-02-24 17:21 | P.PN_ITS ---
Subjective Subjective Interval history: 82 years old female with history of hypertension, CKD, hypothyroidism, chronic pain, vertigo, CHF, presented to the ER with chest tightness on exertion, dyspnea and ankle swelling in the last several days. Denies any cough, palpitations, fever, nausea, vomiting, abdominal pain, diarrhea or dysuria. Compliant to her home medications. Last seen by her doctor a month ago and there was not any change of her home medications. In the ER she was found to have heart failure, cardiology was consulted and recommended to be hospitalized for diuresis. Her labs shows WBC 10.5, BNP 24,100, troponin 0.133 initially and 0.161, UA shows trace hematuria, COVID-negative, EKG no ischemic changes, chest x-ray shows small/moderate left pleural effusion and possible trace right pleural effusion. Exam Vital Signs (past 8 hours): - 02/24/23 09:44 02/24/23 13:00 02/24/23 13:58 Temperature 97.1 F L Pulse Rate 79 79 77 Respiratory Rate 20 16 16 Blood Pressure 111/67 Pulse Oximetry 90 L 99 98 Oxygen Delivery Method Nasal Cannula Nasal Cannula Oxygen Flow Rate 2 1 1 Oxygen Delivery Method Nasal Cannula Oxygen Flow Rate 1 Narrative Exam Narrative: General:? Patient is well developed and well nourished, in no distress at this time. HEENT:? Normocephalic, atraumatic, extraocular muscles intact, oral pharynx is clear and mucous membranes are moist. Neck: supple and symmetric, trachea is midline, no cervical adenopathy. Negative for JVD Chest:? Normal AP diameter and contour without kyphoscoliosis, no tachypnea, equal chest rise bilaterally. Lungs:? CTA b/l no wheezing rhonchi or rales. Cardio:?RRR no m/r/g. Abdomen: S NT ND. No CVA tenderness. Musculoskeletal:? Muscle strength and tone are equal within normal limits, no deformity. Extremities: No edema or joint effusions. No cyanosis or clubbing. Skin:? Pale,? Warm to touch,dry and intact without rashes, ulcerations or petechiae.? Neuro:? Alert and orientated x3,? sensation to touch intact in all extremities, no gross deficits noted of cranial nerves. Psych:? Patient has a well-kept appearance, appropriate affect, mental status attitude thought context and judgment are appropriate for age. Objective Labs 02/23/23 16:15 02/24/23 03:45 Labs: Laboratory Results - last 24 hr 02/23/23 02/23/23 02/23/23 17:25 17:39 19:15 ABG pH 7.38 ABG pCO2 44.7 ABG pO2 95 ABG HCO3 27 ABG Total CO2 28 H ABG O2 Saturation 97 ABG Base Excess 1.0 FiO2 28 Sodium Potassium Chloride Carbon Dioxide BUN Creatinine Estimated GFR BUN/Creatinine Ratio Glucose Calcium Total Creatine Kinase Troponin I 0.161 H* Triglycerides Cholesterol LDL Cholesterol, Calc HDL Cholesterol TSH Urine Color Yellow Urine Appearance Clear Urine pH 5.5 Ur Specific [place] 1.020 Urine Protein Negative Urine Glucose (UA) Negative Urine Ketones Negative Urine Occult Blood 2+ H Urine Nitrate Negative Urine Bilirubin Negative Urine Urobilinogen 0.2 Ur Leukocyte Esterase Negative Urine RBC 5-10/hpf H Urine WBC 1-5/hpf Ur Squamous Epith Cells 0-1 /hpf Urine Bacteria Occasional (0-1) Hyaline Casts 5-10/lpf Urine Mucus 1+ H Ur Culture Indicated? Cult not indicated Chlamy pneumoniae PCR Not detected Adenovirus (PCR) Not detected B.parapertussis DNA PCR Not detected Coronavirus OC43 (PCR) Not detected Coronavirus HKU1 (PCR) Not detected Coronavirus 229E (PCR) Not detected SARS-CoV-2 (PCR) Not detected Coronavirus NL63 (PCR) Not detected Human Metapneumovir PCR Not detected Influenza Type A (PCR) Not detected Influenza Type B (PCR) Not detected M. pneumoniae (PCR) Not detected Parainfluenza 1 (PCR) Not detected Parainfluenza 2 (PCR) Not detected Parainfluenza 3 (PCR) Not detected Parainfluenza 4 (PCR) Not detected RSV (PCR) Not detected Entero/Rhino (PCR) Not detected 02/23/23 02/24/23 02/24/23 21:28 03:45 10:50 ABG pH ABG pCO2 ABG pO2 ABG HCO3 ABG Total CO2 ABG O2 Saturation ABG Base Excess FiO2 Sodium 135 L Potassium 4.4 Chloride 99 Carbon Dioxide 31 BUN 17 Creatinine 1.02 Estimated GFR 55 L BUN/Creatinine Ratio 16.7 Glucose 118 H Calcium 9.0 Total Creatine Kinase 22 L Troponin I 0.166 H* 0.184 H* 0.221 H* Triglycerides 97 Cholesterol 137 L LDL Cholesterol, Calc 80 HDL Cholesterol 38 L TSH 3.82 Urine Color Urine Appearance Urine pH Ur Specific [place] Urine Protein Urine Glucose (UA) Urine Ketones Urine Occult Blood Urine Nitrate Urine Bilirubin Urine Urobilinogen Ur Leukocyte Esterase Urine RBC Urine WBC Ur Squamous Epith Cells Urine Bacteria Hyaline Casts Urine Mucus Ur Culture Indicated? Chlamy pneumoniae PCR Adenovirus (PCR) B.parapertussis DNA PCR Coronavirus OC43 (PCR) Coronavirus HKU1 (PCR) Coronavirus 229E (PCR) SARS-CoV-2 (PCR) Coronavirus NL63 (PCR) Human Metapneumovir PCR Influenza Type A (PCR) Influenza Type B (PCR) M. pneumoniae (PCR) Parainfluenza 1 (PCR) Parainfluenza 2 (PCR) Parainfluenza 3 (PCR) Parainfluenza 4 (PCR) RSV (PCR) Entero/Rhino (PCR) [facility] Medical History Chronic pain syndrome Custody issue Subarachnoid hemorrhage following injury Edema of left lower leg Systolic congestive heart failure Chronic pain of left knee Benign paroxysmal positional vertigo Drug induced constipation Persistent dyspnea after COVID-19 Heart failure Dyspnea on exertion Body posture problem Chronic, continuous use of opioids Stage 3a chronic kidney disease Urge incontinence of urine Onychomycosis Segmental and somatic dysfunction of abdomen and other regions Sacral region somatic dysfunction Pelvic somatic dysfunction Lumbar region somatic dysfunction Thoracic region somatic dysfunction Cervical somatic dysfunction Cranial somatic dysfunction Chronic neck pain Vision disorder Hearing loss Cervical spine disease Carpal tunnel syndrome Shingles Rubella Mumps Measles Chicken pox Kidney stones Chronic low back pain B12 deficiency Hypothyroidism Surgical History Anesthesia History of surgery Family History Father No problems noted. Mother History of heart disease Hypertension Stroke Sister Linn Gehrig disease Sister Smoker Social History household members: other Smoking Status: Former smoker second hand exposure: Yes (occassional) alcohol intake: never substance use type: prescription drug Assessment & Plan Assessment & Plan narrative: 1. Acute on chronic systolic heart failure with acute respiratory failure with hypoxia - Mild reduction in EF 35-40% from 40% last TTE 12/2021. - continue diuresis with 40 mg IV BID. - monitor intake and output - continue home beta laci (coreg) and lisinopril at regular dosages. - stop home thiazide. - goal O2 90-96% on supplemental therapy. 2. NSTEMI or myocardial injury - discussed with cardiology, recommend medical management at this time. Suspect in setting of demand but is already on apixaban so management will not change if NSTEMI or demand. No wall motion abnormalities on TTE. EKG without obvious acute ischemia. troponin up to 0.2, continue to trend until downtrending. 3. Hypothyroidism: continue home levothyroxine, TSH 3.82. 4. Stage 3a chronic kidney disease: monitor with diuresis closely. - dose medications appropriately for renal function. (4) BPPV (benign paroxysmal positional vertigo): - continue meclizine. (5) Chronic low back pain: okay to resume home morphine Code: Full, surrogate is patient's son Dispo: admitted inpatient with anticipated stay beyond two midnights. Consider PT / OT depending on improvement with diuresis. Quality VTE Deep Vein Thrombosis/Pulmonary Embolism Present on Admission: No
[2023-02-24 17:50] LABS: Troponin I 0.205 ng/mL (0.01-0.034)
[2023-02-24] MEDS: SODIUM CHLORIDE 0.9% FLUSH 10 ML IV (20:09)
[2023-02-25] VITALS (12 sets, daily range): BP systolic 92–118; BP diastolic 41–64; PULSE 68–94; RESP 16–20; TEMP 35.7–37.3; O2SAT 90–95
[2023-02-25 06:14] LABS: Add Manual Diff / Slide Review NO; Basophils Absolute Auto 0 /uL (0-100); Basophils Percent Auto 0.2 % (0-2); Eosinophils Absolute Auto 300 /uL (0-450); Hematocrit 35.7 % (36-46); Hemoglobin 11.8 g/dL (12.0-16.0); Lymphocytes Absolute Auto 1600 /uL (1100-4500); Lymphocytes Percent Auto 18.5 % (25-40); Mean Corpuscular Volume 91.1 fL (80-100); Monocytes Absolute Auto 700 /uL (0-900); Monocytes Percent Auto 8.2 % (3-14); Neutrophils Absolute Auto 6000 /uL (1500-7000); Neutrophils Percent Auto 70.1 % (50-75); Platelet Count 211 X10^3/uL (150-400); Red Blood Cell Count 3.92 X10^6/uL (4.0-5.2); White Blood Cell Count 8.6 X10^3/uL (4.5-11.0)
[2023-02-25 06:24] LABS: Blood Urea Nitrogen 22 mg/dL (7-17); Calcium 8.8 mg/dL (8.4-10.2); Carbon Dioxide 38 mmol/L (22-32); Chloride 92 mmol/L (98-107); Estimated Glomerular Filt Rate 35 mL/min (>60); Glucose 98 mg/dL (80-110); HEMOLYSIS < 15 (0-50); Magnesium 1.8 mg/dL (1.6-2.3); Potassium 3.7 mmol/L (3.4-5.1); Sodium 134 mmol/L (137-145)
[2023-02-25] MEDS: LEVOTHYROXINE 100 MCG TABLET PO (06:36)
[2023-02-25] MEDS: MAGNESIUM OXIDE 400 MG TABLET 200 MG PO (08:51)
[2023-02-25] MEDS: FERROUS SULFATE 325 MG TABLET PO (08:54)
[2023-02-25] MEDS: FLUoxetine 20 MG CAPSULE PO (08:57)
[2023-02-25] MEDS: APIXABAN 5 MG TABLET 2.5 MG PO ×2 (08:57→20:38)
[2023-02-25] MEDS: MORPHINE ER 15 MG TABLET 30 MG PO ×2 (08:58→20:42)
[2023-02-25] MEDS: SODIUM CHLORIDE 0.9% FLUSH 10 ML IV ×2 (08:59→20:43)
[2023-02-25] MEDS: IPRATROPIUM 0.5 MG/2.5 ML NEB INH ×3 (09:01→19:50)
[2023-02-25] MEDS: ALBUTEROL 2.5 MG/3 ML NEB (ADULT) INH ×2 (09:01→14:11)
[2023-02-25] MEDS: carvediloL 3.125 MG TABLET 6.25 MG PO ×2 (09:05→20:38)
--- NOTE | 2023-02-25 11:17 | PM.PN.1 ---
Subjective Subjective Interval history: 82 years old female with history of hypertension, CKD, hypothyroidism, chronic pain, vertigo, CHF, presented to the ER with chest tightness on exertion, dyspnea and ankle swelling in the last several days. Echo with slightly worsened EF, around 35%. She feels improved today. Cr. bumped up today, diuretics stopped. BP a bit low this morning. She feels weak still. PT/OT ordered. Exam Vital Signs (past 8 hours): - 02/25/23 04:50 02/25/23 07:59 02/25/23 08:54 Temperature 96.3 F L Pulse Rate 94 H 83 Respiratory Rate 17 Blood Pressure 118/64 92/47 L Pulse Oximetry 95 Oxygen Delivery Method Nasal Cannula Oxygen Flow Rate 0 02/25/23 09:05 02/25/23 09:06 02/25/23 09:57 Temperature 97.2 F L Pulse Rate 83 88 82 Respiratory Rate 16 16 Blood Pressure 92/47 L 108/48 L Pulse Oximetry 92 95 Oxygen Delivery Method Room Air Oxygen Flow Rate Oxygen Delivery Method Room Air Oxygen Flow Rate 0 Narrative Exam Narrative: General:? Patient is well developed and well nourished, in no distress at this time. HEENT:? Normocephalic, atraumatic, extraocular muscles intact, oral pharynx is clear and mucous membranes are moist. Neck: supple and symmetric, trachea is midline, no cervical adenopathy. Negative for JVD Chest:? Normal AP diameter and contour without kyphoscoliosis, no tachypnea, equal chest rise bilaterally. Lungs:? CTA b/l no wheezing rhonchi or rales. Cardio:?RRR no m/r/g. Abdomen: S NT ND. No CVA tenderness. Musculoskeletal:? Muscle strength and tone are equal within normal limits, no deformity. Extremities: No edema or joint effusions. No cyanosis or clubbing. Skin:? Pale,? Warm to touch,dry and intact without rashes, ulcerations or petechiae.? Neuro:? Alert and orientated x3,? sensation to touch intact in all extremities, no gross deficits noted of cranial nerves. Psych:? Patient has a well-kept appearance, appropriate affect, mental status attitude thought context and judgment are appropriate for age. Objective Labs 02/25/23 05:45 02/25/23 05:45 Labs: Laboratory Results - last 24 hr 02/24/23 02/24/23 02/25/23 10:50 17:10 05:45 WBC 8.6 RBC 3.92 L Hgb 11.8 L Hct 35.7 L MCV 91.1 MCH 30.0 MCHC 33.0 RDW 15.0 H Plt Count 211 Neut % (Auto) 70.1 Lymph % (Auto) 18.5 L [place] % (Auto) 8.2 Eos % (Auto) 3.0 Baso % (Auto) 0.2 Neut # (Auto) 6000 Lymph # (Auto) 1600 [place] # (Auto) 700 Eos # (Auto) 300 Baso # (Auto) 0 Sodium 134 L Potassium 3.7 Chloride 92 L Carbon Dioxide 38 H BUN 22 H Creatinine 1.47 H Estimated GFR 35 L BUN/Creatinine Ratio 15.0 Glucose 98 Calcium 8.8 Magnesium 1.8 Troponin I 0.221 H* 0.205 H* PFSH Medical History Chronic pain syndrome Custody issue Subarachnoid hemorrhage following injury Edema of left lower leg Systolic congestive heart failure Chronic pain of left knee Benign paroxysmal positional vertigo Drug induced constipation Persistent dyspnea after COVID-19 Heart failure Dyspnea on exertion Body posture problem Chronic, continuous use of opioids Stage 3a chronic kidney disease Urge incontinence of urine Onychomycosis Segmental and somatic dysfunction of abdomen and other regions Sacral region somatic dysfunction Pelvic somatic dysfunction Lumbar region somatic dysfunction Thoracic region somatic dysfunction Cervical somatic dysfunction Cranial somatic dysfunction Chronic neck pain Vision disorder Hearing loss Cervical spine disease Carpal tunnel syndrome Shingles Rubella Mumps Measles Chicken pox Kidney stones Chronic low back pain B12 deficiency Hypothyroidism Surgical History Anesthesia History of surgery Family History Father No problems noted. Mother History of heart disease Hypertension Stroke Sister Linn Gehrig disease Sister Smoker Social History household members: other Smoking Status: Former smoker second hand exposure: Yes (occassional) alcohol intake: never substance use type: prescription drug Assessment & Plan Assessment & Plan narrative: 1. Acute on chronic systolic heart failure with acute respiratory failure with hypoxia - Mild reduction in EF 35-40% from 40% last TTE 12/2021. - continued diuresis with 40 mg IV BID until cr bump today up to 1.47. Stop diuresis today. Hypoxia now resolved. - monitor intake and output - continue home beta laci (coreg) and lisinopril at regular dosages. - stop home thiazide. - goal O2 90-96% on supplemental therapy. 2. NSTEMI or myocardial injury - discussed with cardiology, recommend medical management at this time. Suspect in setting of demand but is already on apixaban so management will not change if NSTEMI or demand. No wall motion abnormalities on TTE. EKG without obvious acute ischemia. troponin up to 0.2 and then peaked. 3. Hypothyroidism: continue home levothyroxine, TSH 3.82. 4. Stage 3a chronic kidney disease: monitor with diuresis closely. - dose medications appropriately for renal function. 5 BPPV (benign paroxysmal positional vertigo): - continue meclizine. 6 Chronic low back pain: okay to resume home morphine 7. JULES due to diuresis - hold diuretics as noted above, continue to monitor renal function. Code: Full, surrogate is patient's son Dispo: admitted inpatient with anticipated stay beyond two midnights. Consider PT / OT depending on improvement with diuresis. Quality VTE Deep Vein Thrombosis/Pulmonary Embolism Present on Admission: No
--- NOTE | 2023-02-25 13:10 | CM.DPC ---
Addendum entered by Harriett Vega R.N. 02/25/23 13:26: Faxed referral to [email or web address], unable to reach them today, have answer service, and Amaya Zaman at [facility] is not in service today. Will need to follow up tomorrow. If accepted, they will just need DC Summary upon discharge Original Note: DCP Cont: Met with patient in her room. Introduced self and role. Is interested in home health, did have [facility], was pleased with this. Let her know that this DC [facility] will go ahead and send referral. Has good family support. Let her know that this DC [facility] sent a note to the admission counselors asking if she still has Medicaid. P: DCP to continue to follow. Will order [facility] for patient, will do P.T, O.T, and RN. Harriett Vega RN/Special Client Bus Driver
--- NOTE | 2023-02-25 14:21 | PT.IIE ---
Current Diagnoses Hypothyroidism, unspecified (02/23/23) Other chronic pain (02/23/23) Benign paroxysmal vertigo, unspecified ear (02/23/23) Heart failure, unspecified (02/23/23) Lumbago with sciatica, right side (02/23/23) Lumbago with sciatica, left side (02/23/23) Chronic kidney disease, stage 3a (02/23/23) Surgical History (Last Reviewed 02/24/23 @ 17:22 by Jet Elena DO) Anesthesia History of surgery Medical History (Last Reviewed 02/24/23 @ 17:22 by Jet Elena DO) B12 deficiency Benign paroxysmal positional vertigo Body posture problem Carpal tunnel syndrome Cervical somatic dysfunction Cervical spine disease Chicken pox Chronic low back pain Chronic neck pain Chronic pain of left knee Chronic pain syndrome Chronic, continuous use of opioids Cranial somatic dysfunction Custody issue Drug induced constipation Dyspnea on exertion Edema of left lower leg Hearing loss Heart failure Hypothyroidism Kidney stones Lumbar region somatic dysfunction Measles Mumps Onychomycosis Pelvic somatic dysfunction Persistent dyspnea after COVID-19 [place] Sacral region somatic dysfunction Segmental and somatic dysfunction of abdomen and other regions Shingles Stage 3a chronic kidney disease Subarachnoid hemorrhage following injury Systolic congestive heart failure Thoracic region somatic dysfunction Urge incontinence of urine Vision disorder Physical Therapy Inpatient Evaluation/Re-Eval M1 PT/OT-IP Prior Functional Status Start: 02/25/23 10:52 Freq: NEEDED Status: Active Protocol: Document 02/25/23 10:55 AMB (Rec: 02/25/23 11:15 AMB [id number]) Medical Review Prior Functional Status Medical History Reviewed Yes Mobility and Gait Uses a walker for community mobility Social History Household Members other Living Arrangements Apartment/Condo Number of Stairs To Enter/Railing? 16 stairs to enter apartment Home Equipment Front Wheel Walker,Shower Seat without Backrest Employment Status Retired M2 PT-IP Current Condition Start: 02/25/23 10:52 Freq: NEEDED Status: Active Protocol: Document 02/25/23 10:55 AMB (Rec: 02/25/23 11:15 AMB [id number]) Physical Therapy Current Condition Current Condition Evaluation Date 02/25/23 Treatment Diagnosis CHF exacerbation Onset Date 02/23 M3 PT-IP Subjective Start: 02/25/23 10:52 Freq: NEEDED Status: Active Protocol: Document 02/25/23 10:55 AMB (Rec: 02/25/23 11:15 AMB [id number]) Subjective Physical Therapy Visit Type Type Initial Evaluation Visit Start Time 10:15 Visit Stop Time 10:45 Total Visit Minutes 30 Physical Therapy Visit Comments Patient Comments Elizabeth states she is not feeling good overall but is willing to get up Therapy Pain Assessment Pain When Pain Assessed During Mobility M4 PT-IP Mobility and Gait Start: 02/25/23 10:52 Freq: NEEDED Status: Active Protocol: Document 02/25/23 10:55 AMB (Rec: 02/25/23 11:15 AMB [id number]) PT-Bed Mobility Assessment Rolling Level of Assist Standby Assistance Supine to Sit Supine to Sit Standby Assistance Sit to Supine Sit to Supine Standby Assistance Scooting Scooting to Edge of Bed Standby Assistance PT-Transfer Assessment Sit to and From Stand Sit to and from Stand Standby Assistance Equipment Transfer Assistive Device Gait Belt Transfers Transfer Destination Bed,Toilet Transfer Technique Stand Step Pivot Transfer Ability Level of Assist Standby Assistance Comments Mobility Comments Elizabeth was able to transfer with SBA to the walker and then ambulate to the bathroom, she was able to perform pericare independently. She did need some cues for controlled descent to the toilet. She was able to stand near her bed to don her robe with SBA without UE support. Gait Assessment Gait Gait Assistance Required: Standby Assistance Distance (Feet) 50 Assistive Devices Assistive Device Gait Belt,Front Wheeled Walker Gait Deviations General Gait Pattern Decreased Stride Length, Decreased Feet Clearance Factors Limiting Gait Function Factors Limiting Gait Function Decreased Strength,Pain,Poor Balance Comments Gait Comments Elizabeth overall is not feeling well and feels weak. This limits her overall ability to walk very far, but she was able to ambulate with the FWW with SBA. M5 PT-IP Objective Assessments Start: 02/25/23 10:52 Freq: NEEDED Status: Active Protocol: Document 02/25/23 10:55 AMB (Rec: 02/25/23 11:15 AMB [id number]) Orientation Orientation/Cognition Level of Alertness Alert M6 PT-IP Treatment Start: 02/25/23 10:52 Freq: NEEDED Status: Active Protocol: Document 02/25/23 10:55 AMB (Rec: 02/25/23 11:15 AMB [id number]) Physical Therapy Treatment Education Education Provided Safety M7 PT-IP Assessment and Plan Start: 02/25/23 10:52 Freq: NEEDED Status: Active Protocol: Document 02/25/23 10:55 AMB (Rec: 02/25/23 11:15 AMB [id number]) PT Summary Assessment and Plan Potential Rehabilitation Potential Good Status of Condition at Evaluation Stable Summary Impairments Pain,Strength,Gait,Activity Tolerance Assessment Summary Elizabeth is admitted for CHF exacerbation and possible NSTEMI. She lives with her grandloy who goes to high school in a second floor apartment with 16 steps to enter. She no longer drives and states her baseline was that she would not go up and down the stairs without someone with her, is using a walker as baseline in the community, not in the apartment. She does have a son and neighbors who check in on her daily. Elizabeth is not feeling very well but was able to get up out of bed and walk with a walker to the bathroom with SBA and was able to stand and balance for donning her robe and pericare. She will need to do stair training before d/cing home. Could consider home health if her fatigue/weakness continue. Goals Bed Mobility Goal Independent Transfer Goal Independent Gait Goal Standby Assistance Gait Distance 200 Other Goals ascend and descend 16 stairs with one railing Days to Meet Goals 5 Frequency of Treatment Frequency Of Treatment Once a Day Treatment Plan Physical Therapy Treatment Plan Bed Mobility Training,Transfer Training,Gait Training, Therapeutic Exercise, Neuromuscular Re-ed Other Recommendations and Next Treatment 16 stairs to enter apartment Focus Recommendations To Nursing Amount of Assist Needed 1 Person Assist Discharge Recommendations PT Discharge Recommendations Home with Assistance,Home Health Transportation Needs at Discharge Private Vehicle
[2023-02-25] MEDS: FLUoxetine 10 MG CAPSULE PO (16:15)
--- NOTE | 2023-02-25 17:20 | PC.NURSE ---
Day shift note: Patient alert, oriented x4, pleasantly cooperative. BP 92/47 this am, notified Dr. Elena. Lisinopril held, Lasix discontinued, coreg administered. Patient up OOB to BR, voided 350 ml this shift. Excellent PO intake. NO C/O chest pain, resting comfortably watching Sunday football games. Very minimal SOB noted with activity, diffuse crackles to RLL. Remain on RA, 91-95%. Tele: NSR. Waffle cushion placed, bony prominences protected while in bed, however moves frequently independently. SCD's removed for activity. Son and granddaughter at bedside, providing supportive care. Call light within reach, bed alarm active.
[2023-02-25] MEDS: MORPHINE IR 15 MG TABLET PO (19:30)
[2023-02-26] VITALS (11 sets, daily range): BP systolic 85–102; BP diastolic 39–50; PULSE 68–89; RESP 16–20; TEMP 36.3–37.4; O2SAT 91–97
[2023-02-26 05:44] LABS: Add Manual Diff / Slide Review NO; Basophils Absolute Auto 0 /uL (0-100); Basophils Percent Auto 0.4 % (0-2); Eosinophils Absolute Auto 200 /uL (0-450); Eosinophils Percent Auto 3.6 % (2-4); Hematocrit 30.3 % (36-46); Lymphocytes Absolute Auto 1700 /uL (1100-4500); Lymphocytes Percent Auto 24.3 % (25-40); Mean Corpuscular HGB Conc 33.1 % (30-36); Mean Corpuscular Volume 90.6 fL (80-100); Monocytes Absolute Auto 700 /uL (0-900); Monocytes Percent Auto 10.1 % (3-14); Neutrophils Absolute Auto 4200 /uL (1500-7000); Neutrophils Percent Auto 61.6 % (50-75); Platelet Count 167 X10^3/uL (150-400); Red Blood Cell Count 3.34 X10^6/uL (4.0-5.2); Red Cell Distribution Width 15.3 % (11.6-14.8); White Blood Cell Count 6.8 X10^3/uL (4.5-11.0)
[2023-02-26 05:53] LABS: HEMOLYSIS 17 (0-50); Potassium 3.7 mmol/L (3.4-5.1)
[2023-02-26 05:54] LABS: BUN Creatinine Ratio 21.8 (6-22); Blood Urea Nitrogen 29 mg/dL (7-17); Calcium 8.5 mg/dL (8.4-10.2); Carbon Dioxide 37 mmol/L (22-32); Chloride 95 mmol/L (98-107); Estimated Glomerular Filt Rate 40 mL/min (>60); Glucose 81 mg/dL (80-110); Magnesium 1.9 mg/dL (1.6-2.3); Sodium 133 mmol/L (137-145)
[2023-02-26] MEDS: LEVOTHYROXINE 100 MCG TABLET PO (07:01)
[2023-02-26] MEDS: MORPHINE IR 15 MG TABLET PO (07:06)
[2023-02-26 08:08] LABS: Acinetobacter calcoa-baumannii Not Detected (Not Detect); Bacteroides fragilis Not Detected (Not Detect); Candida albicans Not Detected (Not Detect); Candida auris Not Detected (Not Detect); Candida glabrata Not Detected (Not Detect); Candida krusei Not Detected (Not Detect); Candida parapsilosis Not Detected (Not Detect); Candida tropicalis Not Detected (Not Detect); Cryptococcus neoformans/gatti Not Detected (Not Detect); Enterobacter cloacae complex Not Detected (Not Detect); Enterobacterales Not Detected (Not Detect); Enterococcus faecalis Not Detected (Not Detect); Enterococcus faecium Not Detected (Not Detect); Haemophilus influenzae Not Detected (Not Detect); Klebsiella aerogenes Not Detected (Not Detect); Listeria monocytogenes Not Detected (Not Detect); Neisseria meningitidis Not Detected (Not Detect); Proteus species Not Detected (Not Detect); Pseudomonas aeruginosa Not Detected (Not Detect); Salmonella species Not Detected (Not Detect); Serratia marcescens Not Detected (Not Detect); Staphylococcus epidermidis Not Detected (Not Detect); Staphylococcus lugdunensis Not Detected (Not Detect); Staphylococcus species Not Detected (Not Detect); Stenotrophomonas maltophilia Not Detected (Not Detect); Streptococcus agalactiae (Gr B Not Detected (Not Detect); Streptococcus pneumonia Not Detected (Not Detect); Streptococcus pyogenes (Gr A) Not Detected (Not Detect); Streptococcus species Not Detected (Not Detect)
[2023-02-26] MEDS: ONDANSETRON 4 MG/2 ML INJ IV (08:41)
[2023-02-26] MEDS: FLUoxetine 20 MG CAPSULE PO (08:42)
[2023-02-26] MEDS: APIXABAN 5 MG TABLET 2.5 MG PO ×2 (08:45→20:25)
[2023-02-26] MEDS: MORPHINE ER 15 MG TABLET 30 MG PO ×2 (08:46→20:25)
[2023-02-26] MEDS: MAGNESIUM OXIDE 400 MG TABLET 200 MG PO (08:53)
[2023-02-26] MEDS: FERROUS SULFATE 325 MG TABLET PO (08:53)
[2023-02-26] MEDS: SODIUM CHLORIDE 0.9% FLUSH 10 ML IV ×2 (08:58→20:26)
--- NOTE | 2023-02-26 11:08 | OT.IP.EVAL ---
Addendum entered and electronically signed by Laurle Harper OT 02/26/23 14:10: add for signature Original Note: Current Diagnoses Hypothyroidism, unspecified (02/23/23) Other chronic pain (02/23/23) Benign paroxysmal vertigo, unspecified ear (02/23/23) Heart failure, unspecified (02/23/23) Lumbago with sciatica, right side (02/23/23) Lumbago with sciatica, left side (02/23/23) Chronic kidney disease, stage 3a (02/23/23) Past Medical History (Last Reviewed 02/24/23 @ 17:22 by Jet Elena DO) B12 deficiency Benign paroxysmal positional vertigo Body posture problem Carpal tunnel syndrome Cervical somatic dysfunction Cervical spine disease Chicken pox Chronic low back pain Chronic neck pain Chronic pain of left knee Chronic pain syndrome Chronic, continuous use of opioids Cranial somatic dysfunction Custody issue Drug induced constipation Dyspnea on exertion Edema of left lower leg Hearing loss Heart failure Hypothyroidism Kidney stones Lumbar region somatic dysfunction Measles Mumps Onychomycosis Pelvic somatic dysfunction Persistent dyspnea after COVID-19 Rubella Sacral region somatic dysfunction Segmental and somatic dysfunction of abdomen and other regions Shingles Stage 3a chronic kidney disease Subarachnoid hemorrhage following injury Systolic congestive heart failure Thoracic region somatic dysfunction Urge incontinence of urine Vision disorder Surgical History (Last Reviewed 02/24/23 @ 17:22 by Jet Elena DO) Anesthesia History of surgery Occupational Therapy Inpatient Evaluation/Re-Eval M1 PT/OT-IP Prior Functional Status Start: 02/25/23 10:52 Freq: NEEDED Status: Active Protocol: Document 02/26/23 11:50 CGR (Rec: 02/26/23 12:10 CGR [id number]) Medical Review Prior Functional Status Medical History Reviewed Yes Communication Pt is an effective verbal communicator but is [place] Mobility and Gait Pt states she doesn't use equipment in her home but uses a FWW when she is out in the community Activities of Daily Living and IADL's Pt states that she is IND in ADLs and her garnddaughter assists as needed with cleaning, cooking, and shopping. Social History Household Members other Living Arrangements Apartment/Condo Number of Stairs To Enter/Railing? 16 stairs to enter apartment Home Environment Standard Height Toilet,Tub/ Shower Home Equipment Front Wheel Walker,Shower Seat without Backrest,Grab Bars In Shower Employment Status Retired M2 OT-IP Current Condition Start: 02/25/23 10:52 Freq: Status: Active Protocol: Document 02/26/23 11:50 CGR (Rec: 02/26/23 12:10 CGR [id number]) Occupational Therapy Current Condition Current Condition Evaluation Date 02/26/23 Treatment Diagnosis CHF with EF of 35%. Possible NSTEMI, acute respiratory failure Diagnosis Onset Date 02/23/23 M3 OT- IP Subjective and Pain Start: 02/25/23 10:52 Freq: Status: Active Protocol: Document 02/26/23 11:50 CGR (Rec: 02/26/23 12:10 CGR [id number]) OT- Subjective Occupational Therapy Visit Type Type Initial Evaluation Visit Start Time 10:48 Visit Stop Time 11:08 Total Visit Minutes 20 Notes Pt sleeping when OT entered. Occupational Therapy Visit Comments Patient Comments I was very nauseated this morning and vomited a bunch. M4 OT- IP ADL's Start: 02/25/23 10:52 Freq: Status: Active Protocol: Document 02/26/23 11:50 CGR (Rec: 02/26/23 12:10 CGR [id number]) OT [id number] Comments OT Self-Feeding Comments not meal time OT ADL-Grooming Comments OT Grooming Comments pt declined to perform, initially agreeable but states too fatigued after toileting. OT ADL-Oral Care Comments Oral Care Comments pt declined to perform after toileting OT ADL-Dressing Comments OT Dressing Comments declined to perform, states she is able to perform at her baseline. OT ADL-Toileting General Evaluation Toileting Ability Standby Assistance Comments OT Toileting Comments Pt ambualted to toilet and managed clothing without assist. Pt was unable to void but states that her bladder feels full. Nursing notified. OT ADL-Bathing Comments OT Bathing Comments not performed d/t endurance M5 OT- IP IADL's Start: 02/25/23 10:52 Freq: Status: Active Protocol: Document 02/26/23 11:50 CGR (Rec: 02/26/23 12:10 CGR [id number]) OT-Instrumental Activities of Daily Living Deficits IADL Deficits Identified No Deficits Home Safety Awareness Awareness of Need for Assistance at Home Good Awareness Ability to Problem Solve Emergency Able to Problem Solve Situations Medication Management Medication Management No Deficits Identified Money Management Money Management No Deficits Identified Meal Preparation Meal Preparation Caregiver Provides Assist Bootmaker Bootmaker Caregiver Provides Assist Driving Driving Comments Pt does not drive at baseline. M6 OT- IP Functional Cognition Start: 02/25/23 10:52 Freq: Status: Active Protocol: Document 02/26/23 11:50 CGR (Rec: 02/26/23 12:10 CGR [id number]) Cognitive Factors Limiting Selfcare Function Cognitive Ability Level of Alertness Alert Patient Orientation Name,Age,Birthday,Month,Date, Year,Day of Week,Place, Situation Attention Span Ability Capable of Focused Attention, Capable of Sustained Attention Ability to Follow Commands Able to Follow One Step Commands with Increased Time, Able to Follow One Step Commands with Repetition OT- Vision and Hearing OT- Hearing Assessment OT- Hearing Assessment Hearing Impaired OT- Vision Assessment Visual Attentiveness WFL Occular Pursuits WFL Visual Convergence WFL M7 OT- IP Mobility and Balance Start: 02/25/23 10:52 Freq: Status: Active Protocol: Document 02/26/23 11:50 CGR (Rec: 02/26/23 12:10 CGR [id number]) OT- Bed Mobility Assessment Supine to Sit Supine to Sit Assist Standby Assistance Scooting Scooting to Edge of Bed Standby Assistance OT-Transfer Assessment Sit to and From Stand Sit to and from Stand Standby Assistance Transfers Transfer Ability Standby Assistance Technique Transfer Destination Bed,Chair,Toilet Transfer Technique Stand Step Pivot Devices Transfer Assistive Devices Gait Belt,Front Wheeled Walker Comments Mobility Comments mobility from flat bed to toilet then to chair OT- Balance Assessment Sitting Balance and Reactions Static Sitting Balance Ability Good Dynamic Sitting Balance Ability Good M8 OT- IP Objective Assessments Start: 02/25/23 10:52 Freq: Status: Active Protocol: Document 02/26/23 11:50 CGR (Rec: 02/26/23 12:10 CGR [id number]) OT Gross Range of Motion Upper Extremity Range of Motion Assessment Left Impaired ROM Impairments L shld 0-80 OT Strength Upper Extremity Strength Shoulder 3/5 Elbow 4-/5 Hand 4-/5 OT- Coordination Assessment Upper Extremity Finger to Nose Test Within Functional Limits Finger Tapping Test Within Functional Limits OT-Muscle Tone Assessment Muscle Tone WNL Yes OT Sensation Assessment Edema Edema Absent M9 OT- IP Assessment and Plan Start: 02/25/23 10:52 Freq: Status: Active Protocol: Document 02/26/23 11:50 CGR (Rec: 02/26/23 12:10 CGR [id number]) OT Summary Assessment and Plan Potential Rehabilitation Potential Good Analytic Complexity at Evaluation Moderate Summary OT Impairments Range of Motion,Strength, Balance,Functional Mobility, Grooming,Dressing,Toileting, Bathing,Toilet Transfers, Shower Transfers,Activity Tolerance Progress Towards Goals Progressing Toward Goals Assessment Summary Pt presents as a moderate complexity evaluation s/p admit for CHF, Possible NSTEMI and acute respiratory failure . Pt's biggest deficit at this time is endurance that is keeping her from completing ADLs. Pt requests to discharge home and was seen performing stairs with P.T. after OT session. Concern for d/c home is endurance and limited assistance at home. Pt declines SNF. Recommendation would be for SNF but as pt refuses, recommend home with assist if she is able to do stairs. Goals Grooming Goal Independent Dressing Goal Independent Toileting Goal Independent Bathing Goal Independent Toilet Transfer Goal Independent Shower Transfer Goal Independent Days to Meet Goals 5 Frequency of Treatment Frequency Of Treatment Once a Day Treatment Plan OT Treatment Plan ADL Training,Functional Mobility,Patient/Family Education,Discharge Planning Other Treatment Recommendations and Next endurance training, energy Treatment Focus conservation Discharge Recommendations OT Discharge Recommendations Home with Assistance Transportation Needs at Discharge Private Vehicle
--- NOTE | 2023-02-26 11:30 | CM.DPC ---
DCP Continued: RADIOLOGIC TECHNOLOGY TEACHER reviewed EMR. Per RN, patient experienced some n/v this morning. Per provider, patient may either d/c today or tomorrow. Per RN, patient did okay with OT, but had low endurance. Patient still has to work with PT at this time. RADIOLOGIC TECHNOLOGY TEACHER spoke with Rodolfo at [facility]. Can accept patient. RADIOLOGIC TECHNOLOGY TEACHER entered room and introduced self and role. Patient sitting up in bed. Reports accepting plan of home with [facility] when d/c. Reports veronica Merritt can transport either today or tomorrow. Plan: patient to d/c home with son René and [facility] when medically stable. Pending PT today as well. CM team will continue to follow closely. RAMONA Sagastume
--- NOTE | 2023-02-26 11:47 | PT.IPTN ---
Current Diagnoses Hypothyroidism, unspecified (02/23/23) Other chronic pain (02/23/23) Benign paroxysmal vertigo, unspecified ear (02/23/23) Heart failure, unspecified (02/23/23) Lumbago with sciatica, right side (02/23/23) Lumbago with sciatica, left side (02/23/23) Chronic kidney disease, stage 3a (02/23/23) Physical Therapy Treatment Note M2 PT-IP Current Condition Start: 02/25/23 10:52 Freq: NEEDED Status: Active Protocol: Document 02/25/23 10:55 AMB (Rec: 02/25/23 11:15 AMB [id number]) Physical Therapy Current Condition Current Condition Evaluation Date 02/25/23 Treatment Diagnosis CHF exacerbation Onset Date 02/23 M3 PT-IP Subjective Start: 02/25/23 10:52 Freq: NEEDED Status: Active Protocol: Document 02/26/23 11:47 AW (Rec: 02/26/23 12:04 AW [id number]) Subjective Physical Therapy Visit Type Type Treatment Note Visit Start Time 11:26 Visit Stop Time 11:45 Total Visit Minutes 19 Notes BP 88/49 HR 86 before mobilizing. BP 99/44 HR 89 during rest break after climbing stairs. Pt complains of SOB and chest tightness. RN informed. SpO2 89% at this time. SpO2 recovered to 95% after mobility. Number of CLAM DREDGER Visits 0 Physical Therapy Visit Comments Patient Comments Elizabeth is willing to participate with PT Patient Goals Hopes to go home soon. Therapy Pain Assessment Pain When Pain Assessed During Mobility Pain Present Pain Present Pain Reported Location chest tightness Scale Used not quantified - characterized as tightness after doing stairs Description Tightness Pain Management Techniques Modification of Treatment M4 PT-IP Mobility and Gait Start: 02/25/23 10:52 Freq: NEEDED Status: Active Protocol: Document 02/26/23 11:47 AW (Rec: 02/26/23 12:04 AW [id number]) PT-Transfer Assessment Sit to and From Stand Sit to and from Stand Standby Assistance,Use of Upper Extremities Equipment Transfer Assistive Device Front Wheeled Walker Transfers Transfer Destination Chair Transfer Technique Stand Step Pivot Comments Mobility Comments Pt is found sitting up in chair, willing to work with PT . She stands to FWW and ambulates 40 feet to stairwell with FWW SBA. She descends 13 steps using single rail with step to pattern. She begins to ascend with LLE leading in step to pattern but needs standing rest break after 5 reps. She continues leading with LLE but then switches to step over step for last 6 reps . She ambulates another 25 feet before asking to rest. See VS documented above. At this time, pt reports chest tightness. RN informed. Pt ambulates another 40 feet back to her chair with FWW and SBA . Pt is left in reclined position with call light handy and all needs in reach. Gait Assessment Gait Gait Assistance Required: Standby Assistance Assistive Devices Assistive Device Front Wheeled Walker Gait Deviations General Gait Pattern Decreased Stride Length, Decreased Feet Clearance, Flexed Trunk Factors Limiting Gait Function Factors Limiting Gait Function Decreased Activity Tolerance, Decreased Strength,Respiratory Distress Comments Gait Comments See mobility comments for details. Stair Climbing Assessment Evaluation Level of Assist On Stairs Standby Assistance Devices Stair Climbing Assistive Devices Left Railing Technique/Endurance Stair Climbing Direction Ascend and Descend Stair Climbing Technique Step Over Step,Step to Step Number of Steps Climbed 13 Stair Climbing Set # Repetitions (reps) 1 Comments Stair Climbing Comments See mobility comments for details. PT-Balance Assessment Sitting Balance and Reactions Static Sitting Balance Ability Good Dynamic Sitting Balance Ability Good Standing Balance and Reactions Static Standing Balance Ability Good Dynamic Standing Balance Ability Fair Device Used FWW M5 PT-IP Objective Assessments Start: 02/25/23 10:52 Freq: NEEDED Status: Active Protocol: Document 02/25/23 10:55 AMB (Rec: 02/25/23 11:15 AMB [id number]) Orientation Orientation/Cognition Level of Alertness Alert M6 PT-IP Treatment Start: 02/25/23 10:52 Freq: NEEDED Status: Active Protocol: Document 02/26/23 11:47 AW (Rec: 02/26/23 12:04 AW [id number]) Physical Therapy Treatment Education Education Provided Safety Other Treatments Other Treatment Performed Discussed stair navigation and pt states she always has someone with her for stairs. M7 PT-IP Assessment and Plan Start: 02/25/23 10:52 Freq: NEEDED Status: Active Protocol: Document 02/26/23 11:47 AW (Rec: 02/26/23 12:04 AW [id number]) PT Summary Assessment and Plan Potential Rehabilitation Potential Good Summary Impairments Pain,Strength,Gait,Activity Tolerance Progress Towards Goals Progressing Toward Goals Assessment Summary Elizabeth has progressed well with her mobility but continues to be limited by SOB with SpO2 desats to 85% during mobility. She did report chest tightness and SOB during mobility. RN aware and communicating with admitting physician. Pt benefits from the use of a walker at this time which is below her independent baseline. PT recommends discharge home with assist once medically stable. PT further recommends home PT to do home safety assessment and to progress pt back toward independent household mobility. Will continue to follow while hospitalized. Goals Bed Mobility Goal Independent Transfer Goal Independent Gait Goal Standby Assistance Gait Distance 200 Other Goals ascend and descend 16 stairs with one railing Days to Meet Goals 5 Frequency of Treatment Frequency Of Treatment Once a Day Treatment Plan Physical Therapy Treatment Plan Bed Mobility Training,Transfer Training,Gait Training, Therapeutic Exercise, Neuromuscular Re-ed Other Recommendations and Next Treatment monitor BP and SpO2 Focus Recommendations To Nursing Amount of Assist Needed 1 Person Assist Discharge Recommendations PT Discharge Recommendations Home with Assistance,Home Health Transportation Needs at Discharge Private Vehicle
--- NOTE | 2023-02-26 12:47 | PM.PN.1 ---
Subjective Subjective Interval history: 82 years old female with history of hypertension, CKD, hypothyroidism, chronic pain, vertigo, CHF, presented to the ER with chest tightness on exertion, dyspnea and ankle swelling in the last several days. Echo with slightly worsened EF, around 35%. She feels slightly worse today. A bit nauseous with worsening cough. BP a bit low this morning. She feels weak still but was doing stairs with PT / OT. coreg and lisinopril held today, diuretic held as of 2 days ago. Cr slightly improved today. Exam Vital Signs (past 8 hours): - 02/26/23 09:14 Temperature 98.2 F Pulse Rate 84 Respiratory Rate 16 Blood Pressure 100/48 L Pulse Oximetry 91 Oxygen Flow Rate 0 Oxygen Delivery Method Room Air Oxygen Flow Rate 0 Narrative Exam Narrative: General:? Patient is well developed and well nourished, in no distress at this time. HEENT:? Normocephalic, atraumatic, extraocular muscles intact, oral pharynx is clear and mucous membranes are moist. Neck: supple and symmetric, trachea is midline, no cervical adenopathy. Negative for JVD Chest:? Normal AP diameter and contour without kyphoscoliosis, no tachypnea, equal chest rise bilaterally. Lungs:? CTA b/l no wheezing rhonchi or rales. Cardio:?RRR no m/r/g. Abdomen: S NT ND. No CVA tenderness. Musculoskeletal:? Muscle strength and tone are equal within normal limits, no deformity. Extremities: No edema or joint effusions. No cyanosis or clubbing. Skin:? Pale,? Warm to touch,dry and intact without rashes, ulcerations or petechiae.? Neuro:? Alert and orientated x3,? sensation to touch intact in all extremities, no gross deficits noted of cranial nerves. Psych:? Patient has a well-kept appearance, appropriate affect, mental status attitude thought context and judgment are appropriate for age. Objective Labs 02/26/23 05:15 02/26/23 05:15 Labs: Laboratory Results - last 24 hr 02/23/23 02/26/23 16:00 05:15 WBC 6.8 RBC 3.34 L Hgb 10.0 L Hct 30.3 L MCV 90.6 MCH 30.0 MCHC 33.1 RDW 15.3 H Plt Count 167 Neut % (Auto) 61.6 Lymph % (Auto) 24.3 L [place] % (Auto) 10.1 Eos % (Auto) 3.6 Baso % (Auto) 0.4 Neut # (Auto) 4200 Lymph # (Auto) 1700 [place] # (Auto) 700 Eos # (Auto) 200 Baso # (Auto) 0 Sodium 133 L Potassium 3.7 Chloride 95 L Carbon Dioxide 37 H BUN 29 H Creatinine 1.33 H Estimated GFR 40 L BUN/Creatinine Ratio 21.8 Glucose 81 Calcium 8.5 Magnesium 1.9 A.calcoaceticus-baumannii cmplx PCR Not detected Bacteroides fragilis Not detected Hanh albicans (PCR) Not detected Hanh auris (PCR) Not detected C. glabrata (PCR) Not detected C. krusei (PCR) Not detected C. parapsilosis (PCR) Not detected C. tropicalis (PCR) Not detected C. neoform/gattii (PCR) Not detected Enterobacterales (PCR) Not detected E. cloacae complex PCR Not detected Enterococc faecalis PCR Not detected Enterococc faecium PCR Not detected E. coli (PCR) Not detected H. influenzae (PCR) Not detected Klebsiella aerogenes (PCR) Not detected Klebsiella oxytoca PCR Not detected Klebsiella pneumoniae Not detected List. monocytogenes PCR Not detected N. meningitidis (PCR) Not detected Proteus species (PCR) Not detected Salmonella spp. (PCR) Not detected Serratia marcescens PCR Not detected Staphylococcus sp PCR Not detected Staph aureus (PCR) Not detected mecA/C & MREJ Resist Gene Not applicable mecA/C-Methicil Resis Gene Not applicable mcr-1 Colistin Res Gene PCR Not applicable Staph epidermidis (PCR) Not detected Staph lugdunensis PCR Not detected S. maltophilia (PCR) Not detected Streptococcus sp PCR Not detected Group A Strep (PCR) Not detected Strep agalactiae (PCR) Not detected Strep pneumoniae (PCR) Not detected P. aeruginosa (PCR) Not detected Kristina/B-Vanco Res Genes Not applicable blaIMP Car res Gene PCR Not applicable KPC-Carbap Res Gene PCR Not applicable blaNDM Car Res Gene PCR Not applicable OXA-48 Carbapenem Resis Gene (PCR) Not applicable blaVIM Car Res Gene PCR Not applicable CTX-M Gene Resistance (PCR) Not applicable PFSH Medical History Chronic pain syndrome Custody issue Subarachnoid hemorrhage following injury Edema of left lower leg Systolic congestive heart failure Chronic pain of left knee Benign paroxysmal positional vertigo Drug induced constipation Persistent dyspnea after COVID-19 Heart failure Dyspnea on exertion Body posture problem Chronic, continuous use of opioids Stage 3a chronic kidney disease Urge incontinence of urine Onychomycosis Segmental and somatic dysfunction of abdomen and other regions Sacral region somatic dysfunction Pelvic somatic dysfunction Lumbar region somatic dysfunction Thoracic region somatic dysfunction Cervical somatic dysfunction Cranial somatic dysfunction Chronic neck pain Vision disorder Hearing loss Cervical spine disease Carpal tunnel syndrome Shingles Rubella Mumps Measles Chicken pox Kidney stones Chronic low back pain B12 deficiency Hypothyroidism Surgical History Anesthesia History of surgery Family History Father No problems noted. Mother History of heart disease Hypertension Stroke Sister Linn Gehrig disease Sister Smoker Social History household members: other Smoking Status: Former smoker second hand exposure: Yes (occassional) alcohol intake: never substance use type: prescription drug Assessment & Plan Assessment & Plan narrative: 1. Acute on chronic systolic heart failure with acute respiratory failure with hypoxia - Mild reduction in EF 35-40% from 40% last TTE 12/2021. - continued diuresis with 40 mg IV BID until cr bump up to 1.47. No further diuresis with hypotension and creatinine bump. Hypoxia now resolved. Likely over diuresed. - monitor intake and output - held home beta laci (coreg) and lisinopril today with low BP. - stop home thiazide. - goal O2 90-96% on supplemental therapy. - continue to monitor today with borderline hypotension and weakness. 2. NSTEMI or myocardial injury - discussed with cardiology, recommend medical management at this time. Suspect in setting of demand but is already on apixaban so management will not change if NSTEMI or demand. No wall motion abnormalities on TTE. EKG without obvious acute ischemia. troponin up to 0.2 and then downtrended. 3. Hypothyroidism: continue home levothyroxine, TSH 3.82. 4. Stage 3a chronic kidney disease: monitor with diuresis closely. - dose medications appropriately for renal function. 5 BPPV (benign paroxysmal positional vertigo): - continue meclizine. 6 Chronic low back pain: okay to resume home morphine 7. JULES due to diuresis - hold diuretics as noted above, continue to monitor renal function. Code: Full, surrogate is patient's son Dispo: admitted inpatient with anticipated stay beyond two midnights. s/p PT and OT, recommended for home with assistance, hopeful for discharge home tomorrow if creatinine and BP improved. Quality VTE Deep Vein Thrombosis/Pulmonary Embolism Present on Admission: No
[2023-02-26] MEDS: IPRATROPIUM 0.5 MG/2.5 ML NEB INH ×3 (13:28→19:30)
[2023-02-26] MEDS: FLUoxetine 10 MG CAPSULE PO (18:05)
[2023-02-27] MEDS: ONDANSETRON 4 MG/2 ML INJ IV (02:39)
[2023-02-27 02:46] VITALS: BP 109/58; PULSE 79; RESP 20; TEMP 36.4; O2SAT 97
[2023-02-27] MEDS: LEVOTHYROXINE 100 MCG TABLET PO (06:42)
[2023-02-27 06:52] LABS: Add Manual Diff / Slide Review NO; Basophils Absolute Auto 0 /uL (0-100); Basophils Percent Auto 0.5 % (0-2); Eosinophils Absolute Auto 200 /uL (0-450); Eosinophils Percent Auto 2.2 % (2-4); Hematocrit 30.3 % (36-46); Hemoglobin 10.2 g/dL (12.0-16.0); Lymphocytes Absolute Auto 1200 /uL (1100-4500); Lymphocytes Percent Auto 13.3 % (25-40); Mean Corpuscular HGB Conc 33.6 % (30-36); Mean Corpuscular Hemoglobin 30.9 PG (26-34); Mean Corpuscular Volume 91.9 fL (80-100); Monocytes Absolute Auto 700 /uL (0-900); Monocytes Percent Auto 7.7 % (3-14); Neutrophils Absolute Auto 6800 /uL (1500-7000); Neutrophils Percent Auto 76.3 % (50-75); Platelet Count 163 X10^3/uL (150-400); Red Cell Distribution Width 15.3 % (11.6-14.8); White Blood Cell Count 8.9 X10^3/uL (4.5-11.0)
[2023-02-27 07:00] VITALS: O2SAT 95
[2023-02-27] MEDS: IPRATROPIUM 0.5 MG/2.5 ML NEB INH (07:41)
[2023-02-27] MEDS: ALBUTEROL 2.5 MG/3 ML NEB (ADULT) INH (07:41)
[2023-02-27 07:44] VITALS: O2SAT 98
[2023-02-27 07:45] VITALS: PULSE 84; RESP 16; O2SAT 95
[2023-02-27 08:00] VITALS: BP 105/58; PULSE 87; RESP 16; TEMP 36.1; O2SAT 100
[2023-02-27] MEDS: MORPHINE ER 15 MG TABLET 30 MG PO (08:27)
[2023-02-27] MEDS: APIXABAN 5 MG TABLET 2.5 MG PO (08:28)
[2023-02-27] MEDS: MAGNESIUM OXIDE 400 MG TABLET 200 MG PO (08:29)
[2023-02-27] MEDS: FLUoxetine 20 MG CAPSULE PO (08:29)
[2023-02-27] MEDS: FERROUS SULFATE 325 MG TABLET PO (08:32)
[2023-02-27 08:36] LABS: BUN Creatinine Ratio 24.8 (6-22); Blood Urea Nitrogen 35 mg/dL (7-17); Calcium 8.5 mg/dL (8.4-10.2); Carbon Dioxide 33 mmol/L (22-32); Chloride 96 mmol/L (98-107); Estimated Glomerular Filt Rate 37 mL/min (>60); Glucose 93 mg/dL (80-110); HEMOLYSIS < 15 (0-50); Magnesium 2.1 mg/dL (1.6-2.3); Potassium 4.2 mmol/L (3.4-5.1); Sodium 132 mmol/L (137-145)
--- NOTE | 2023-02-27 08:55 | PT.IPTN ---
Current Diagnoses Hypothyroidism, unspecified (02/23/23) Other chronic pain (02/23/23) Benign paroxysmal vertigo, unspecified ear (02/23/23) Heart failure, unspecified (02/23/23) Lumbago with sciatica, right side (02/23/23) Lumbago with sciatica, left side (02/23/23) Chronic kidney disease, stage 3a (02/23/23) Physical Therapy Treatment Note M2 PT-IP Current Condition Start: 02/25/23 10:52 Freq: NEEDED Status: Active Protocol: Document 02/25/23 10:55 AMB (Rec: 02/25/23 11:15 AMB [id number]) Physical Therapy Current Condition Current Condition Evaluation Date 02/25/23 Treatment Diagnosis CHF exacerbation Onset Date 02/23 M3 PT-IP Subjective Start: 02/25/23 10:52 Freq: NEEDED Status: Active Protocol: Document 02/27/23 09:26 TS (Rec: 02/27/23 09:44 TS [id number]) Subjective Physical Therapy Visit Type Type Treatment Note Visit Start Time 08:55 Visit Stop Time 09:24 Total Visit Minutes 29 Notes BP 110/42, Spo2 93% at rest RA , Spo2 90% after mobility on RA Number of MONITORING TECH Visits 1 Physical Therapy Visit Comments Patient Comments Pt found resting in bed, reports feeling better today but still weak. Has chest tightness during stairs, RN notified. Patient Goals Hopes to go home soon. Therapy Pain Assessment Pain When Pain Assessed During Mobility Pain Present Pain Present Denied Pain Location chest tightness Description Tightness Pain Management Techniques Modification of Treatment M4 PT-IP Mobility and Gait Start: 02/25/23 10:52 Freq: NEEDED Status: Active Protocol: Document 02/27/23 09:26 TS (Rec: 02/27/23 09:44 TS [id number]) PT-Bed Mobility Assessment Supine to Sit Supine to Sit Standby Assistance Scooting Scooting to Edge of Bed Standby Assistance PT-Transfer Assessment Sit to and From Stand Sit to and from Stand Standby Assistance,Use of Upper Extremities Equipment Transfer Assistive Device Gait Belt,Front Wheeled Walker Comments Mobility Comments Supine to sit SBA with HOB elevated 40D with BUE support to upright trunk. Sit to stand with BUE on FWW SBA, pt is quick to stand with good balance. She ambulated with slow step thru gait ~75' CGA, pt reports feeling weak. She performed 13 steps ascending/ descending CGA with use of R handrail. She requires short standing rest breaks periodically with steps, reports some pressure in her chest. She ambulated back to room, sat in chair, Spo2 90% on RA. Pt performed seated knee flex/ext and seated march while in chair. Pt was left in chair with call light nearby, all needs met, RN notified. Gait Assessment Gait Gait Assistance Required: Standby Assistance Distance (Feet) 75 Assistive Devices Assistive Device Gait Belt,Front Wheeled Walker Gait Deviations General Gait Pattern Decreased Stride Length, Decreased Feet Clearance, Flexed Trunk Factors Limiting Gait Function Factors Limiting Gait Function Decreased Activity Tolerance, Decreased Strength,Respiratory Distress Comments Gait Comments See mobility comments. Stair Climbing Assessment Evaluation Level of Assist On Stairs Standby Assistance Devices Stair Climbing Assistive Devices Right Railing Technique/Endurance Stair Climbing Direction Ascend and Descend Stair Climbing Technique Step Over Step,Step to Step Number of Steps Climbed 13 Stair Climbing Set # Repetitions (reps) 1 Comments Stair Climbing Comments See mobility comments. PT-Balance Assessment Sitting Balance and Reactions Static Sitting Balance Ability Good Dynamic Sitting Balance Ability Good Standing Balance and Reactions Static Standing Balance Ability Good Dynamic Standing Balance Ability Fair Device Used FWW M5 PT-IP Objective Assessments Start: 02/25/23 10:52 Freq: NEEDED Status: Active Protocol: Document 02/25/23 10:55 AMB (Rec: 02/25/23 11:15 AMB [id number]) Orientation Orientation/Cognition Level of Alertness Alert M6 PT-IP Treatment Start: 02/25/23 10:52 Freq: NEEDED Status: Active Protocol: Document 02/27/23 09:26 TS (Rec: 02/27/23 09:44 TS [id number]) Physical Therapy Treatment Education Education Provided Safety M7 PT-IP Assessment and Plan Start: 02/25/23 10:52 Freq: NEEDED Status: Active Protocol: Document 02/27/23 09:26 TS (Rec: 02/27/23 09:44 TS [id number]) PT Summary Assessment and Plan Potential Rehabilitation Potential Good Summary Impairments Pain,Strength,Gait,Activity Tolerance Progress Towards Goals Progressing Toward Goals Assessment Summary Elizabeth continues to make progress with her mobility but continues to be limited by general weakness and some SOB. She progressed her ambulation to ~75'CGA with FWW, reports feeling weak and LEs are not stable. She continues to perform steps x13 CGA with single rail, continues to report pressure in chest. Spo2 remained in low 90's during session. PT continues to recommend home with assist and HHPT. Goals Bed Mobility Goal Independent Transfer Goal Independent Gait Goal Standby Assistance Gait Distance 200 Other Goals ascend and descend 16 stairs with one railing Days to Meet Goals 5 Frequency of Treatment Frequency Of Treatment Once a Day Treatment Plan Physical Therapy Treatment Plan Bed Mobility Training,Transfer Training,Gait Training, Therapeutic Exercise, Neuromuscular Re-ed Other Recommendations and Next Treatment monitor BP and SpO2 Focus Recommendations To Nursing Amount of Assist Needed Standby Assistance Discharge Recommendations PT Discharge Recommendations Home with Assistance,Home Health Transportation Needs at Discharge Private Vehicle
[2023-02-27] MEDS: SODIUM CHLORIDE 0.9% FLUSH 10 ML IV (10:00)
[2023-02-27 12:00] VITALS: BP 96/48; PULSE 94; RESP 16; TEMP 36.2; O2SAT 98
[2023-02-27] MEDS: LACTATED RINGERS 500 ML 1000 ML IV (13:51)
--- NOTE | 2023-02-27 14:37 | OT.IP.TRT ---
Current Diagnoses Hypothyroidism, unspecified (02/23/23) Other chronic pain (02/23/23) Benign paroxysmal vertigo, unspecified ear (02/23/23) Heart failure, unspecified (02/23/23) Lumbago with sciatica, right side (02/23/23) Lumbago with sciatica, left side (02/23/23) Chronic kidney disease, stage 3a (02/23/23) Occupational Therapy Treatment Note M2 OT-IP Current Condition Start: 02/25/23 10:52 Freq: Status: Active Protocol: Document 02/26/23 11:50 CGR (Rec: 02/26/23 12:10 CGR [id number]) Occupational Therapy Current Condition Current Condition Evaluation Date 02/26/23 Treatment Diagnosis CHF with EF of 35%. Possible NSTEMI, acute respiratory failure Diagnosis Onset Date 02/23/23 M3 OT- IP Subjective and Pain Start: 02/25/23 10:52 Freq: Status: Active Protocol: Document 02/27/23 14:37 [facility] (Rec: 02/27/23 14:47 [facility] [id number]) OT- Subjective Occupational Therapy Visit Type Type Treatment Note Visit Start Time 14:29 Visit Stop Time 14:37 Total Visit Minutes 8 Occupational Therapy Visit Comments Patient Comments Pt not wanting to get up as states to be going home. Pt agreed to talk about energy conservations strategies with the pt. Patient/Caregiver Goals TO go home. OT Pain Assessment Pain When Pain Assessed At Rest Pain Present Pain Present Denied Pain M6 OT- IP Functional Cognition Start: 02/25/23 10:52 Freq: Status: Active Protocol: Document 02/27/23 14:37 [facility] (Rec: 02/27/23 14:47 [facility] [id number]) Cognitive Factors Limiting Selfcare Function Cognitive Ability Level of Alertness Alert Patient Orientation Name,Age,Birthday,Month,Date, Year,Day of Week,Place, Situation Attention Span Ability Capable of Focused Attention, Capable of Sustained Attention Ability to Follow Commands Able to Follow One Step Commands with Increased Time, Able to Follow One Step Commands with Repetition Cognitive Comments Cognitive Assessment Comments Able to talk at length with pt of how to get assist if needed while at home alone. Pt was able to identify that she has a Life Alert that she does not use and anticipating using it now. In addition able to go over energy conservation strategies with the pt, pt able to states good understanding. M7 OT- IP Mobility and Balance Start: 02/25/23 10:52 Freq: Status: Active Protocol: Document 02/26/23 11:50 CGR (Rec: 02/26/23 12:10 CGR [id number]) OT- Bed Mobility Assessment Supine to Sit Supine to Sit Assist Standby Assistance Scooting Scooting to Edge of Bed Standby Assistance OT-Transfer Assessment Sit to and From Stand Sit to and from Stand Standby Assistance Transfers Transfer Ability Standby Assistance Technique Transfer Destination Bed,Chair,Toilet Transfer Technique Stand Step Pivot Devices Transfer Assistive Devices Gait Belt,Front Wheeled Walker Comments Mobility Comments mobility from flat bed to toilet then to chair OT- Balance Assessment Sitting Balance and Reactions Static Sitting Balance Ability Good Dynamic Sitting Balance Ability Good M8 OT- IP Objective Assessments Start: 02/25/23 10:52 Freq: Status: Active Protocol: Document 02/26/23 11:50 CGR (Rec: 02/26/23 12:10 CGR [id number]) OT Gross Range of Motion Upper Extremity Range of Motion Assessment Left Impaired ROM Impairments L shld 0-80 OT Strength Upper Extremity Strength Shoulder 3/5 Elbow 4-/5 Hand 4-/5 OT- Coordination Assessment Upper Extremity Finger to Nose Test Within Functional Limits Finger Tapping Test Within Functional Limits OT-Muscle Tone Assessment Muscle Tone WNL Yes OT Sensation Assessment Edema Edema Absent M9 OT- IP Assessment and Plan Start: 02/25/23 10:52 Freq: Status: Active Protocol: Document 02/27/23 14:37 [facility] (Rec: 02/27/23 14:47 [facility] [id number]) OT Summary Assessment and Plan Potential Rehabilitation Potential Good Analytic Complexity at Evaluation Moderate Summary OT Impairments Range of Motion,Strength, Balance,Functional Mobility, Grooming,Dressing,Toileting, Bathing,Toilet Transfers, Shower Transfers,Activity Tolerance Progress Towards Goals Progressing Toward Goals Assessment Summary Able to go over energy conservation strategies with the pt. Able to find out from the pt that she has a Life ALert but does not use it and now states will use it at home . Pt to go home with assist and have home health. Goals Grooming Goal Independent Dressing Goal Independent Toileting Goal Independent Bathing Goal Independent Toilet Transfer Goal Independent Shower Transfer Goal Independent Days to Meet Goals 3 Frequency of Treatment Frequency Of Treatment Once a Day Treatment Plan OT Treatment Plan ADL Training,Functional Mobility,Patient/Family Education,Discharge Planning Discharge Recommendations OT Discharge Recommendations Home with Assistance Transportation Needs at Discharge Private Vehicle
--- NOTE | 2023-02-27 15:33 | CM.DPC ---
DCP Continued: MOVEMAN reviewed EMR. Per RN, patient eager to d/c home. MOVEMAN entered room and reintroduced self and role. Patient just getting off phone with son René to come get her. Continues to agree to [facility] for nursing/PT/OT upon d/c. Reports no additional needs at this time. MOVEMAN spoke with Rodolfo at [facility] to inform him of the d/c. CM [employer] Manager Marline emailed face to face to [facility]. Plan: CM team will send dc summary when available to [facility]. Patient to d/c home today with son and additional family followed by [facility] for nursing/PT/OT. CM team will continue to follow as needed. RAMONA Sagastume
--- NOTE | 2023-02-27 16:12 | PC.NURSE ---
Patient is A&OX4 VSS on RA, afebrile today. She is able to tolerate getting up to the Bathroom and calls appropriately. She reports pain level at baseline to back and mild upper abdominal stomach 2/10 and she tolerates meals well. Her BP is soft this shift despite holding BP medications. She denies dizziness. MD at bedside evaluating patient and she is given 500 CC LR bolus. Her BP is improved and she is cleared for discharge home with family. She verbalizes understanding of CHF, and new medications, as well as diet and importance of following up with PCP this week. She is escorted with all of her belongings and home meds to private vehicle with René in private vehicle for discharge home this afternoon.
--- NOTE | 2023-02-28 21:54 | P.DS_ITS ---
History of Present Illness History of Present Illness Chief complaint: cp/sob/covid exposure, Narrative: Per admitting physician: 82 years old female with history of hypertension, CKD, hypothyroidism, chronic pain, vertigo, CHF, presented to the ER with chest tightness on exertion, dyspnea and ankle swelling in the last several days. Denies any cough, palpitations, fever, nausea, vomiting, abdominal pain, diarrhea or dysuria. Compliant to her home medications. Last seen by her doctor a month ago and there was not any change of her home medications. In the ER she was found to have heart failure, cardiology was consulted and recommended to be hospitalized for diuresis. Her labs shows WBC 10.5, BNP 24,100, troponin 0.133 initially and 0.161, UA shows trace hematuria, COVID-negative, EKG no ischemic changes, chest x-ray shows small/moderate left pleural effusion and possible trace right pleural effusion. Discharge Providers Provider Date of admission: 02/23/23 21:02 Discharge Date: 02/27/23 Primary care physician: Olegario Rubio DO Consults: 02/23/23 22:24 Consult to Discharge Planning Routine Comment: 02/25/23 08:51 Consult to Occupational Therapy Evaluate & Treat Comment: Physician Instructions: Evaluate and treat Consult to Physical Therapy Evaluate & Treat Comment: Physician Instructions: Evaluate and Treat 02/25/23 13:16 Consult to Home Health Routine Comment: Reason For Exam: Home Health RN, P.T, O.T. Discharge provider: Bhavik Sánchez MD Summary Hospital Course Discharge Diagnosis: 1. Acute on chronic CHFrEF with acute respiratory failure 2. Cardiac demand ischemia 3. Hypothyroidism 4. Hypothyroidism 5. JULES on CKD Hospital Course: Ms. Leiva came in to the hospital with acute CHF exacerbation. She diuresed well and was able to come off oxygen by discharge. She diuresed net negative 2.5L. She did have JULES and lightheadedness after this. She was given back some fluid. Her blood pressure medications were held. She felt better and did well with PT. She was encouraged to follow up with her PCP within one week. Exam Vital Signs (past 8 hours): Fraction of Inspired Oxygen 28 SaO2/FiO2 Ratio 328 Oxygen Delivery Method Room Air Oxygen Flow Rate 0 Narrative Exam Narrative: General:? Patient is well developed and well nourished, in no distress at this time. Lungs:? CTA b/l no wheezing rhonchi or rales. Cardio:?RRR no m/r/g. Abdomen: S NT ND. No CVA tenderness. Musculoskeletal:? Muscle strength and tone are equal within normal limits, no deformity. Extremities: No edema or joint effusions. No cyanosis or clubbing. Objective Labs 02/27/23 06:35 02/27/23 06:35 [facility] Medical History Chronic pain syndrome Custody issue Subarachnoid hemorrhage following injury Edema of left lower leg Systolic congestive heart failure Chronic pain of left knee Benign paroxysmal positional vertigo Drug induced constipation Persistent dyspnea after COVID-19 Heart failure Dyspnea on exertion Body posture problem Chronic, continuous use of opioids Stage 3a chronic kidney disease Urge incontinence of urine Onychomycosis Segmental and somatic dysfunction of abdomen and other regions Sacral region somatic dysfunction Pelvic somatic dysfunction Lumbar region somatic dysfunction Thoracic region somatic dysfunction Cervical somatic dysfunction Cranial somatic dysfunction Chronic neck pain Vision disorder Hearing loss Cervical spine disease Carpal tunnel syndrome Shingles Rubella Mumps Measles Chicken pox Kidney stones Chronic low back pain B12 deficiency Hypothyroidism Surgical History Anesthesia History of surgery Family History Father No problems noted. Mother History of heart disease Hypertension Stroke Sister Linn Gehrig disease Sister Smoker Social History household members: other Smoking Status: Former smoker second hand exposure: Yes (occassional) alcohol intake: never substance use type: prescription drug Discharge Plan Discharge Plan Patient Disposition: Home Health Service Provider Discharge Comment: Ms. Leiva had congestive heart failure. She felt improved with removing some fluid, but then became dizzy so some of her blood pressure medicines were held because her blood pressure was low. She should take her new medication lasix daily to help control her fluid retention. She also should hold off taking her lisinopril and hydrochlorothiazide for now since her blood pressure was low. She should follow up with her PCP within a 3-5 days if possible to make sure she continues to do well with these medicine changes and to consider restarting her blood pressure medicine. Discharge orders & Medications Prescriptions: New furosemide 20 mg tablet 20 mg PO DAILY Qty: 30 0RF Continued multivitamin [Multiple Vitamins] 1 EACH tablet 1 tab PO QDAY Qty: 0 (DME) Disabled parking permit See Rx Instructions .Route .MEDSUPPLY Qty: 1 0RF Rx Instructions: As directed (DME) walker Mis See Rx Instructions .ROUTE .MEDSUPPLY Qty: 1 0RF Rx Instructions: four wheeled walker; use as directed carvedilol 6.25 mg tablet 6.25 mg PO BID Rx Instructions: must administer with a meal/food cyanocobalamin (vitamin B-12) 1,000 mcg/mL solution 1,000 mcg IM QMONTH Qty: 1 11RF ferrous sulfate [FeroSul] 325 mg (65 mg iron) tablet See Rx Instructions .ROUTE .COMPLEX Qty: 90 3RF Dose Instruction: TAKE ONE TABLET BY MOUTH ONE TIME DAILY Rx Instructions: TAKE ONE TABLET BY MOUTH ONE TIME DAILY methocarbamol 500 mg tablet See Rx Instructions .ROUTE .COMPLEX Qty: 90 5RF Dose Instruction: TAKE ONE TABLET BY MOUTH THREE TIMES DAILY NEEDED FOR MUSCLE SPASM Rx Instructions: TAKE ONE TABLET BY MOUTH THREE TIMES DAILY NEEDED FOR MUSCLE SPASM Eliquis 5 mg tablet 2.5 mg PO BID Qty: 90 0RF levothyroxine 100 mcg tablet See Rx Instructions .ROUTE .COMPLEX Qty: 90 3RF Dose Instruction: TAKE ONE TABLET BY MOUTH ONE TIME DAILY Rx Instructions: TAKE ONE TABLET BY MOUTH ONE TIME DAILY meclizine 25 mg tablet See Rx Instructions .ROUTE .COMPLEX Qty: 60 1RF Dose Instruction: TAKE ONE TABLET BY MOUTH FOUR TIMES DAILY Rx Instructions: TAKE ONE TABLET BY MOUTH FOUR TIMES DAILY morphine 15 mg tablet See Rx Instructions .ROUTE .COMPLEX Qty: 60 0RF Rx Instructions: Take 1 tablet by mouth twice a day as needed for pain morphine 30 mg tablet extended release See Rx Instructions .ROUTE .COMPLEX Qty: 60 0RF Rx Instructions: Take 1 tablet by mouth every 12 hours for pain ondansetron 4 mg tablet,disintegrating 4 mg PO Q8H PRN (Reason: nausea and vomiting) Qty: 20 5RF fluoxetine 20 mg capsule 20 mg PO DAILY Qty: 90 3RF fluoxetine 10 mg capsule 10 mg PO QPM Qty: 90 3RF Rx Instructions: Refill on 12/13/2019 magnesium gluconate 27.5 mg magne- sium (500 mg) tablet 27.5 mg PO DAILY Qty: 90 3RF Spiriva Respimat 1.25 mcg/actuation mist 2 puff inhalation QAM Qty: 4 2RF Discontinued lisinopril 40 mg tablet 40 mg PO DAILY hydrochlorothiazide 12.5 mg capsule 12.5 mg PO DAILY Qty: 30 0RF Follow up/Referrals: Olegario Rubio, [Primary Care Provider] - 03/06/23 10:30 am (Appt:03/06 @ 10:[address] Chung please arrive 15 min prior to scheduled appointment time you where admitted to the hospital with chf exacerbation, meds were changed (added lasix, and held lisinopril and hctz)) Diet/Activity/Treatments Diet: Low-sodium Visit Report/Discharge Packet Instructions: Congestive Heart Failure (Alternative Therapy), Heart-Healthy Diet, DI for Heart Failure, Heart Healthy Physical Activity, Furosemide Stand Alone Forms: Congestive Heart Failure, Patient Portal/API, Stroke Signs & Symptoms Discharge Data Primary Care Provider: Olegario Rubio Discharges patient from system. Discharge Date/Time: 02/27/23 16:07 Quality VTE Deep Vein Thrombosis/Pulmonary Embolism Present on Admission: No
== END 2023-02-27 16:07 | disposition home or self-care (01) | DRG 291 ==
LOC: ED 21:01 → AC 21:03
PROVIDERS: Emergency Medicine; Internal Medicine; Admitting Provider Internal Medicine; Emergency Provider Emergency Medicine; Family Provider Family Medicine; PCP Family Medicine; Referring Provider Emergency Medicine; Visit Provider Internal Medicine
DX: I13.0 Hypertensive heart and chronic kidney disease with heart failure and stage 1 through stage 4 chronic kidney disease, or unspecified chronic kidney disease (principal); I50.23 Acute on chronic systolic (congestive) heart failure; J96.01 Acute respiratory failure with hypoxia; I24.89 Other forms of acute ischemic heart disease; N17.9 Acute kidney failure, unspecified; E03.9 Hypothyroidism, unspecified; N18.31 Chronic kidney disease, stage 3a; H81.10 Benign paroxysmal vertigo, unspecified ear; M54.41 Lumbago with sciatica, right side; G89.29 Other chronic pain; M54.42 Lumbago with sciatica, left side; Z87.891 Personal history of nicotine dependence
CPT/HCPCS: 36415; 36600; 71045; 80048; 80053; 80061; 81001; 82550; 82805; 83605; 83690; 83735; 83880; 84145; 84443; 84484; 85025; 85610; 85730; 87040; 87154; 87205; 87633; 87635; 93005; 93306; 94640; 94760; 96365; 96375; 97116; 97161; 97166; 97530; 99285; C9803; J0696; J1940; J2405; J7613

== ENCOUNTER 2023-04-08 14:54 | Emergency (ER) | payer MEDICAID, SELFPAY ==
[2023-02-23 21:20] VITALS: BMI 24.5
[2023-04-08] VITALS (18 sets, daily range): BP systolic 108–162; BP diastolic 41–69; PULSE 73–85; RESP 12–24; TEMP 36.7; O2SAT 88–100; BMI 23.8
--- NOTE | 2023-04-08 15:19 | DI.CT.S_ITS ---
PROCEDURE: CT HEAD/BRAIN WO CON INDICATIONS: fall, h/o bleed. + c spine tenderness TECHNIQUE: Noncontrast 4.5 mm thick angled axial sections acquired from the foramen magnum to the vertex, with coronal and sagittal reformats. For radiation dose reduction, the following was used: automated exposure control, adjustment of mA and/or kV according to patient size. COMPARISON: [facility], CT, CT HEAD/BRAIN WO CON, 05/08/2022, 2:27. [facility], CT, CT CERVICAL SPINE WO CON, 04/08/2023, 15:24. [facility], CT, CT HEAD/BRAIN WO CON, 05/08/2022, 6:25. FINDINGS: Image quality: Mild streak artifact can be seen through the skull base. CSF spaces: Basal cisterns are patent. No extra-axial fluid collections. The ventricles are symmetric in size and shape. Brain: No intracranial bleeds or masses. There is cerebral volume loss for age, with resultant ventricular and sulcal prominence. There are periventricular and deep white matter chronic small vessel ischemic changes. There is intracranial internal carotid artery atherosclerosis. Skull and face: Left forehead scalp hematoma is seen. No associated fracture can be seen. Calvarium and visualized facial bones appear intact, without suspicious lesions. Sinuses: Visualized sinuses and mastoids are clear. IMPRESSION: Left forehead scalp hematoma. No associated calvarial fracture is seen. No acute intracranial hemorrhage is seen. No acute intracranial process is seen. Dictated by: Bakari Johnson M.D. on 04/08/2023 at 15:13 Approved by: Bakari Johnson M.D. on 04/08/2023 at 15:14
--- NOTE | 2023-04-08 15:19 | DI.CT.S_ITS ---
PROCEDURE: CT CERVICAL SPINE WO CON INDICATIONS: fall, h/o bleed. + c spine tenderness TECHNIQUE: Noncontrast 3 mm thick sections acquired from the skull base to the T4 level. Sagittal and coronal reformats were then constructed. For radiation dose reduction, the following was used: automated exposure control, adjustment of mA and/or kV according to patient size. COMPARISON: [facility], CT, CT HEAD/BRAIN WO CON, 04/08/2023, 15:24. FINDINGS: Image quality: Excellent. Bones: Mildly displaced fractures can be seen the anterior right aspect C1 arch as well the posterior right aspect of the C1 arch. These fracture lines can be seen on series 2, images 11 and 12. No additional cervical spine fractures are seen. Underlying degenerative changes are seen, multiple levels of at least moderate disc space narrowing. Focal degenerative change is seen involving the C1-C2 interface anteriorly. Calcified pannus can be seen posterior to the dens. Remote left posterior rib fractures are seen. Soft tissues: Small bilateral pleural effusions are seen. Prevertebral soft tissues are normal in thickness. No paravertebral hematomas. No apical pneumothoraces. IMPRESSION: The C1 arch is fractured anteriorly and posteriorly, with mildly displaced fracture seen on the right side. Small bilateral pleural effusions are seen. Underlying cervical spine degenerative changes are seen. Note: Case discussed by telephone with Dr. Partida at 4:17 p.m. [place] time on April 08, 2023. Dictated by: Bakari Johnson M.D. on 04/08/2023 at 15:15 Approved by: Bakari Johnson M.D. on 04/08/2023 at 15:18
--- NOTE | 2023-04-08 16:18 | ED.GENADULT ---
HPI - General Adult General Chief complaint: Trauma Stated complaint: fell T-1/head inj Time Seen by Provider: 04/08/23 16:18 Source: patient Mode of arrival: Wheelchair History of Present Illness HPI narrative: 82-year-old woman anticoagulated on apixaban for chronic atrial fibrillation, history of congestive heart failure, chronic pain syndrome on morphine regularly, prior fall with subarachnoid hemorrhage who presents after falling last night saying that her neck hurts and her forehead hurts. She denies loss of consciousness however details surrounding the fall are uncertain. Patient was able to get up off the floor and has been mobile throughout the day. She took her usual morphine dose for her chronic pain and did not notice that it changed her acute neck pain in any way and that was what prompted tonight ER visit. Related Data Home Medications Medication Instructions Recorded Confirmed multivitamin (Multiple Vitamins 1 tab PO QDAY ##0 01/09/17 03/06/23 tablet) carvedilol 6.25 mg tablet 6.25 mg PO BID 01/17/22 03/06/23 Previous Rx's Medication Instructions Recorded Disabled parking permit #1 ea 10/21/20 walker #1 ea 02/23/21 ondansetron 4 mg disintegrating 4 mg PO Q8H PRN nausea and 03/29/21 tablet vomiting #20 tabs cyanocobalamin (vitamin B-12) 1,000 mcg IM QMONTH #1 mL 02/14/22 1,000 mcg/mL injection solution ferrous sulfate 325 mg (65 mg See Rx Instructions .Route 03/22/22 iron) tablet (FeroSul) .COMPLEX #90 tabs fluoxetine 10 mg capsule 10 mg PO QPM #90 caps 12/08/22 fluoxetine 20 mg capsule 20 mg PO DAILY #90 caps 12/08/22 magnesium gluconate 27.5 mg 27.5 mg PO DAILY #90 tabs 12/08/22 magnesium (500 mg) tablet tiotropium bromide 1.25 2 puff inhalation QAM #4 grams 12/08/22 mcg/actuation mist for inhalation (Spiriva Respimat) levothyroxine 100 mcg tablet See Rx Instructions .Route 01/17/23 .COMPLEX #90 tabs morphine 15 mg immediate release See Rx Instructions .Route 02/23/23 tablet .COMPLEX #60 tabs morphine 30 mg tablet,extended See Rx Instructions .Route 02/23/23 release .COMPLEX #60 tabs furosemide 20 mg tablet 20 mg PO DAILY #30 tabs 02/27/23 apixaban 2.5 mg tablet (Eliquis) 2.5 mg PO BID #180 tabs 03/05/23 meclizine 25 mg tablet See Rx Instructions .Route 04/02/23 .COMPLEX #60 tabs methocarbamol 500 mg tablet See Rx Instructions .Route 04/04/23 .COMPLEX #90 tabs Allergies Allergy/AdvReac Type Severity Reaction Status Date / Time prochlorperazine Allergy Severe paralyZed Verified 04/08/23 15:14 [From COMPAZINE] throat codeine [CODEINE] Allergy Mild extremely Verified 04/08/23 15:14 nauseated pregabalin Allergy dizziness, Verified 04/08/23 15:14 difficulty walking Review of Systems Review of Systems Narrative: Pertinent positive and negative findings as per HPI Patient History Medical History Atrial fibrillation Chronic pain syndrome Custody issue Subarachnoid hemorrhage following injury Edema of left lower leg Systolic congestive heart failure Chronic pain of left knee Benign paroxysmal positional vertigo Drug induced constipation Persistent dyspnea after COVID-19 Heart failure Dyspnea on exertion Body posture problem Chronic, continuous use of opioids Stage 3a chronic kidney disease Urge incontinence of urine Onychomycosis Segmental and somatic dysfunction of abdomen and other regions Sacral region somatic dysfunction Pelvic somatic dysfunction Lumbar region somatic dysfunction Thoracic region somatic dysfunction Cervical somatic dysfunction Cranial somatic dysfunction Chronic neck pain Vision disorder Hearing loss Cervical spine disease Carpal tunnel syndrome Shingles Rubella Mumps Measles Chicken pox Kidney stones Chronic low back pain B12 deficiency Hypothyroidism Surgical History Anesthesia History of surgery Family History Father No problems noted. Mother History of heart disease Hypertension Stroke Sister Linn Gehrig disease Sister Smoker Social History household members: other Smoking Status: Former smoker second hand exposure: Yes (occassional) alcohol intake: never substance use type: prescription drug Smoking Status: Former smoker Substance Use Type: does not use Exam Initial Vital Signs Initial Vital Signs: Vital Signs Temperature 98.1 F 04/08/23 15:10 Pulse Rate 73 04/08/23 15:10 Respiratory Rate 16 04/08/23 15:10 Blood Pressure 133/66 04/08/23 15:10 Pulse Oximetry 94 04/08/23 15:10 Oxygen Delivery Method Room Air 04/08/23 15:10 General: Frail, chronically ill-appearing, complaining of headache and neck pain HEENT: Moist mucous membranes, normal sclera with reactive pupils, large contusion over the left frontal portion of the scalp and forehead without laceration Neck: Significant tenderness to palpation along the entire cervical spine, C-collar is placed Respiratory: Lungs are clear to auscultation, no wheezing no rales no rhonchi. Full and symmetrical air movement Chest: No tenderness to palpation along the thoracic spine or ribcage Cardiac: Irregular with no murmurs no bruits Abdomen: Soft, nontender, good bowel tones, no flank pain. No pelvic ring tenderness Skin: Thin, scattered bruises from her anticoagulation and age Neurologic: Grossly neurologically intact with no obvious asymmetries or abnormalities, she is moving all extremities and has sensation in all extremities Extremities: No acute trauma, Psych: Cooperative, appropriate insight and affect Course Orders Ordered: ED Orders 04/08/23 15:19 CT cervical spine wo con Stat CT head/brain w con Stat 04/08/23 16:25 CXR [XR chest 1V] Stat UA Complete [Urinalysis and Microscopic] Stat 04/08/23 17:33 BNP [NT-proBNP (BNP-Adult 18+)] Stat Complete Blood Count AUTO DIFF Stat Comprehensive Metabolic Panel Stat Lipase Stat Magnesium Stat PTT Partial Thromboplastin Schuyler Stat Prothrombin Time INR Stat Troponin & CK Cardiac Panel Stat 04/08/23 17:55 EKG-12 Lead Stat 04/08/23 18:00 Consult to [employer] - Delivery Man Stat 04/08/23 18:47 COVID19 - ADMIT (ANALYTICAL STRATEGIST swab/PCR) Stat Discontinued Medications Hydromorphone HCl (Hydromorphone 0.5 Mg Inj) 0.5 mg IV NOW ONE Stop: 04/08/23 18:53 Last Admin: 04/08/23 18:56 Dose: 0.5 mg Documented By: KITTY Ondansetron HCl (Ondansetron 4 Mg Odt) 4 mg PO NOW ONE Stop: 04/08/23 16:13 Last Admin: 04/08/23 16:47 Dose: 4 mg Documented By: KEVIN Vital Signs Vital signs: Vital Signs - 8 hr 04/08/23 15:10 04/08/23 17:35 04/08/23 17:45 Temperature 98.1 F Pulse Rate 73 79 Respiratory Rate 16 16 Blood Pressure 133/66 129/61 Pulse Oximetry 94 92 Oxygen Delivery Method Room Air Room Air Oxygen Flow Rate 04/08/23 17:45 04/08/23 18:00 04/08/23 18:00 Temperature Pulse Rate 76 80 Respiratory Rate 17 19 Blood Pressure 139/63 Pulse Oximetry 92 88 L Oxygen Delivery Method Nasal Cannula Oxygen Flow Rate 2 04/08/23 18:15 04/08/23 18:15 04/08/23 18:30 Temperature Pulse Rate 78 79 Respiratory Rate 12 15 Blood Pressure 132/63 Pulse Oximetry 100 100 Oxygen Delivery Method Nasal Cannula Oxygen Flow Rate 2 04/08/23 18:30 04/08/23 18:46 04/08/23 18:46 Temperature Pulse Rate 83 Respiratory Rate 23 Blood Pressure 139/59 L 162/69 H Pulse Oximetry 95 Oxygen Delivery Method Nasal Cannula Oxygen Flow Rate 2 04/08/23 18:58 04/08/23 18:58 04/08/23 19:00 Temperature Pulse Rate 81 82 Respiratory Rate 19 20 Blood Pressure 145/66 H Pulse Oximetry 100 100 Oxygen Delivery Method Oxygen Flow Rate 04/08/23 19:00 Temperature Pulse Rate Respiratory Rate Blood Pressure 147/65 H Pulse Oximetry Oxygen Delivery Method Oxygen Flow Rate Medical Decision Making Lab Data 04/08/23 17:33 04/08/23 17:33 Labs: Lab Results 04/08/23 Range/Units 17:33 WBC 9.7 (4.5-11.0) X10^3/uL RBC 3.91 L (4.0-5.2) X10^6/uL Hgb 11.6 L (12.0-16.0) g/dL Hct 35.5 L (36-46) % MCV 90.9 (80-100) fL MCH 29.6 (26-34) PG MCHC 32.6 (30-36) % RDW 14.4 (11.6-14.8) % Plt Count 204 (150-400) X10^3/uL Neut % (Auto) 80.1 H (50-75) % Lymph % (Auto) 11.5 L (25-40) % Mingo % (Auto) 7.3 (3-14) % Eos % (Auto) 0.6 L (2-4) % Baso % (Auto) 0.5 (0-2) % Neut # (Auto) 7800 H (1119-2725) /uL Lymph # (Auto) 1100 (2503-1665) /uL Mingo # (Auto) 700 (0-900) /uL Eos # (Auto) 100 (0-450) /uL Baso # (Auto) 0 (0-100) /uL PT 15.1 H (9.4-12.5) SECONDS INR 1.3 (0.9-1.3) APTT 37 H (25.1-36.5) SECONDS Sodium 133 L (137-145) mmol/L Potassium 4.7 (3.4-5.1) mmol/L Chloride 96 L (98-107) mmol/L Carbon Dioxide 35 H (22-32) mmol/L BUN 21 H (7-17) mg/dL Creatinine 0.92 (0.52-1.04) mg/dL Estimated GFR > 60 (>60) mL/min BUN/Creatinine Ratio 22.8 H (6-22) Glucose 116 H (80-110) mg/dL Calcium 9.6 (8.4-10.2) mg/dL Magnesium 2.0 (1.6-2.3) mg/dL Total Bilirubin 1.1 (0.2-1.3) mg/dL AST 30 (14-36) IU/L ALT 13 (<35) IU/L Alkaline Phosphatase 99 (38-126) U/L Total Creatine Kinase 25 L (30-135) U/L Troponin I 0.020 (0.01-0.034) ng/mL NT-Pro-B Natriuret Pep 6640 H (<450) pg/mL Total Protein 6.5 (6.3-8.2) g/dL Albumin 3.1 L (3.5-5.0) g/dL Globulin 3.4 (1.7-4.1) g/dL Albumin/Globulin Ratio 0.9 L (1.0-2.8) Lipase 17 L (23-300) U/L MDM Narrative Medical decision making narrative: CC: Fall over 12 hours ago on blood thinners, hit head unknown loss of consciousness, neck pain Complicating co-morbidities: Age, heart failure, chronic pain with daily morphine Data collected from: patient Medical records reviewed: Hospitalized February with discharge on February 28 with worsening congestive heart failure are reviewed Differential considered: Intracranial hemorrhage, skull fracture, C-spine fractures, we will need further consideration as to cause of the fall and possibility of medical complications Exam documented above, pertinent findings include: Significant cervical spine pain, contusion and hematoma to the forehead left side. No other obvious trauma appreciated she is in chronic rate controlled atrial fibrillation. Lab Test results independently reviewed as above. Pertinent findings: CBC is unremarkable with chronic stable anemia and no significant leukocytosis Chemistries show chronic stable kidney disease with creatinine at 1.4. Interval electrolyte abnormalities Troponin undetectable BNP BNP is 6640. Normals in our lab are less than 450. Her baseline is in the 6000 range. Most recent admission with congestive heart failure had a troponin in the 24,100 range Imaging studies independently reviewed: CT scan of the head shows large forehead scalp hematoma no underlying fractures. No intracranial hemorrhage CT scan of the cervical spine shows the C1 arch is fractured anteriorly and posteriorly with mildly displaced fracture seen on the right side. Patient will remain in cervical collar placed on arrival in the emergency department and will send films to [facility] for further evaluation Consultations: [id number] findings reviewed with [facility] transfer center. Images will be reviewed by their team to determine next steps and if this in fact does meet criteria for unstable cervical spine fracture and direct transfer to the ED [address] Peace, ER attending at [facility]. Accepts the patient ED to ED transfer Treatments: Hard collar is placed, 2 L nasal cannula started for slightly decreasing sats when she is sleeping Discussion: Fracture and unstable nature of the fracture with need for transfer for definitive treatment was reviewed with the patient. She very much does not want to be transferred because of her 16-year-old granddaughter for whom she is responsible. I did get social work involved to make sure that the 16-year-old is taking care of. Elizabeth is grudgingly willing to be transferred to [facility] at this point. ALS transport next available will arrive in approximately 2 hours. As she is hemodynamically and neurologically stable will continue with plans for ALS transport at this time. Pain has been adequately controlled as long as she is not moving. I believe her slightly elevated BNP is close to her baseline and clinically she is euvolemic and not showing signs of severe congestive heart failure. Critical Care Time Critical Care Time Critical Care Time: Yes Total Critical Care Time: 33 Attestation: Critical care time is separate from other billable procedures. There is a high probability of a significant, sudden or life-threatening deterioration that requires my full and direct attention, intervention and personal management. This critical care time includes consultation with family and other consulting doctors, review of records, and interpretation of data from labs, EKGs and imaging as well as managements of unstable C1 cervical spine injury Discharge Plan Departure Patient Disposition: [facility] Clinical Impression: Atrial fibrillation, chronic C1 cervical fracture Qualifiers: Encounter type: initial encounter Fracture type: closed Fracture morphology: unspecified fracture morphology Fracture alignment: displaced Qualified Code(s): S12.000A - Unspecified displaced fracture of first cervical vertebra, initial encounter for closed fracture Chronic CHF (congestive heart failure) Qualifiers: Heart failure type: unspecified Qualified Code(s): I50.9 - Heart failure, unspecified Prescriptions: No Action multivitamin [Multiple Vitamins] 1 EACH tablet 1 tab PO QDAY Qty: 0 (DME) Disabled parking permit See Rx Instructions .Route .MEDSUPPLY Qty: 1 0RF Rx Instructions: As directed (DME) walker [facility] [place], [place] See Rx Instructions .ROUTE .MEDSUPPLY Qty: 1 0RF Rx Instructions: four wheeled walker; use as directed carvedilol 6.25 mg tablet 6.25 mg PO BID Rx Instructions: must administer with a meal/food cyanocobalamin (vitamin B-12) 1,000 mcg/mL solution 1,000 mcg IM QMONTH Qty: 1 11RF ferrous sulfate [FeroSul] 325 mg (65 mg iron) tablet See Rx Instructions .ROUTE .COMPLEX Qty: 90 3RF Dose Instruction: TAKE ONE TABLET BY MOUTH ONE TIME DAILY Rx Instructions: TAKE ONE TABLET BY MOUTH ONE TIME DAILY levothyroxine 100 mcg tablet See Rx Instructions .ROUTE .COMPLEX Qty: 90 3RF Dose Instruction: TAKE ONE TABLET BY MOUTH ONE TIME DAILY Rx Instructions: TAKE ONE TABLET BY MOUTH ONE TIME DAILY morphine 15 mg tablet See Rx Instructions .ROUTE .COMPLEX Qty: 60 0RF Rx Instructions: Take 1 tablet by mouth twice a day as needed for pain morphine 30 mg tablet extended release See Rx Instructions .ROUTE .COMPLEX Qty: 60 0RF Rx Instructions: Take 1 tablet by mouth every 12 hours for pain Eliquis 2.5 mg tablet 2.5 mg PO BID Qty: 180 3RF meclizine 25 mg tablet See Rx Instructions .ROUTE .COMPLEX Qty: 60 1RF Dose Instruction: TAKE ONE TABLET BY MOUTH FOUR TIMES DAILY Rx Instructions: TAKE ONE TABLET BY MOUTH FOUR TIMES DAILY methocarbamol 500 mg tablet See Rx Instructions .ROUTE .COMPLEX Qty: 90 5RF Dose Instruction: TAKE ONE TABLET BY MOUTH THREE TIMES DAILY NEEDED FOR MUSCLE SPASM Rx Instructions: TAKE ONE TABLET BY MOUTH THREE TIMES DAILY NEEDED FOR MUSCLE SPASM ondansetron 4 mg tablet,disintegrating 4 mg PO Q8H PRN (Reason: nausea and vomiting) Qty: 20 5RF fluoxetine 20 mg capsule 20 mg PO DAILY Qty: 90 3RF fluoxetine 10 mg capsule 10 mg PO QPM Qty: 90 3RF Rx Instructions: Refill on 12/13/2019 magnesium gluconate 27.5 mg magne- sium (500 mg) tablet 27.5 mg PO DAILY Qty: 90 3RF Spiriva Respimat 1.25 mcg/actuation mist 2 puff inhalation QAM Qty: 4 2RF furosemide 20 mg tablet 20 mg PO DAILY Qty: 30 0RF Referrals: Olegario Rubio DO [Primary Care Provider] -
--- NOTE | 2023-04-08 16:25 | DI.RAD.S_ITS ---
PROCEDURE: XR CHEST 1V INDICATIONS: syncope TECHNIQUE: One view of the chest was acquired. COMPARISON: [facility], CR, XR CHEST 1V, 01/06/2022, 6:27. [facility], CT, CT HEAD/BRAIN WO CON, 04/08/2023, 15:24. [facility], CR, XR CHEST 1V, 02/23/2023, 16:09. FINDINGS: Surgical changes and devices: Abdominal clips are seen. Lungs and pleura: The patient's C-collar overlies the upper lungs. On this semiupright portable chest examination, no large pneumothorax is seen. There is blunting of the costophrenic. No focal infiltrates are seen. Low lung volumes are noted. This causes a crowded appearance to the lung markings and limits evaluation. Generalized interstitial can be seen. Mediastinum: The cardiac contours are moderately enlarged. The aorta demonstrates calcification and tortuosity. Bones and chest wall: No suspicious bony lesions. Age-appropriate bony degenerative changes are seen. Overlying soft tissues appear unremarkable. IMPRESSION: Low lung volumes with generalized interstitial prominence, moderate cardiomegaly, and a small left-sided pleural effusion. CHF is suspected. Postoperative and degenerative changes are seen. Dictated by: Bakari Johnson M.D. on 04/08/2023 at 16:31 Approved by: Bakari Johnson M.D. on 04/08/2023 at 16:32
[2023-04-08] MEDS: ONDANSETRON 4 MG ODT PO (16:47)
[2023-04-08 17:46] LABS: Add Manual Diff / Slide Review NO; Basophils Absolute Auto 0 /uL (0-100); Basophils Percent Auto 0.5 % (0-2); Eosinophils Absolute Auto 100 /uL (0-450); Eosinophils Percent Auto 0.6 % (2-4); Hematocrit 35.5 % (36-46); Hemoglobin 11.6 g/dL (12.0-16.0); Lymphocytes Absolute Auto 1100 /uL (1100-4500); Lymphocytes Percent Auto 11.5 % (25-40); Mean Corpuscular HGB Conc 32.6 % (30-36); Mean Corpuscular Hemoglobin 29.6 PG (26-34); Mean Corpuscular Volume 90.9 fL (80-100); Monocytes Absolute Auto 700 /uL (0-900); Monocytes Percent Auto 7.3 % (3-14); Neutrophils Absolute Auto 7800 /uL (1500-7000); Neutrophils Percent Auto 80.1 % (50-75); Platelet Count 204 X10^3/uL (150-400); Red Blood Cell Count 3.91 X10^6/uL (4.0-5.2); Red Cell Distribution Width 14.4 % (11.6-14.8); White Blood Cell Count 9.7 X10^3/uL (4.5-11.0)
[2023-04-08 18:00] LABS: INR 1.3 (0.9-1.3); Prothrombin Time 15.1 SECONDS (9.4-12.5)
[2023-04-08 18:02] LABS: PTT Partial Thromboplastin Tim 37 SECONDS (25.1-36.5)
--- NOTE | 2023-04-08 18:02 | PC.NURSE ---
CAR SHAGGER note: This CAR SHAGGER contacted [facility] [place] and spoke with Candid at the transfer center, face sheet and images were pushed for this pt. Candid stated [facility] would give a call back to speak with provider.
[2023-04-08 18:16] LABS: Alanine Aminotransferase 13 IU/L (<35); Albumin 3.1 g/dL (3.5-5.0); Albumin Globulin Ratio 0.9 (1.0-2.8); Alkaline Phosphatase 99 U/L (38-126); Aspartate Aminotransferase 30 IU/L (14-36); BUN Creatinine Ratio 22.8 (6-22); Bilirubin Total 1.1 mg/dL (0.2-1.3); Blood Urea Nitrogen 21 mg/dL (7-17); Calcium 9.6 mg/dL (8.4-10.2); Carbon Dioxide 35 mmol/L (22-32); Chloride 96 mmol/L (98-107); Creatine Kinase 25 U/L (30-135); Estimated Glomerular Filt Rate > 60 mL/min (>60); Globulin 3.4 g/dL (1.7-4.1); Glucose 116 mg/dL (80-110); HEMOLYSIS < 15 (0-50); Lipase 17 U/L (23-300); Potassium 4.7 mmol/L (3.4-5.1); Sodium 133 mmol/L (137-145); Total Protein 6.5 g/dL (6.3-8.2)
[2023-04-08 18:17] LABS: NT-proBNP (BNP-Adult 18+) 6640 pg/mL (<450)
[2023-04-08] MEDS: HYDROMORPHONE 0.5 MG INJ IV (18:56)
[2023-04-08 19:35] LABS: COVID19 - ADMIT (NP swab/PCR) Negative (Negative)
--- NOTE | 2023-04-08 21:19 | PC.NURSE ---
change pt into gown, and changed brief, pt was unable to urinate without being able to sit up
== END 2023-04-08 21:19 | disposition short-term general hospital (02) ==
PROVIDERS: Emergency Provider Emergency Medicine; Family Provider Family Medicine; PCP Family Medicine
DX: S12.000A Unspecified displaced fracture of first cervical vertebra, initial encounter for closed fracture (principal); I48.20 Chronic atrial fibrillation, unspecified; I50.9 Heart failure, unspecified; Z79.01 Long term (current) use of anticoagulants; W19.XXXA Unspecified fall, initial encounter; Z87.891 Personal history of nicotine dependence
CPT/HCPCS: 36415; 70460; 71045; 72125; 80053; 82550; 83690; 83735; 83880; 84484; 85025; 85610; 85730; 87635; 93005; 96374; 96376; 99285; C9803; J1170

== ENCOUNTER → 2023-06-14 13:52 | Outpatient (CLI) | payer MEDICAID, SELFPAY ==
[2023-02-23 21:20] VITALS: BMI 24.5
[2023-06-14 14:48] LABS: Alanine Aminotransferase 14 IU/L (<35); Albumin 3.1 g/dL (3.5-5.0); Albumin Globulin Ratio 0.9 (1.0-2.8); Alkaline Phosphatase 86 U/L (38-126); Aspartate Aminotransferase 27 IU/L (14-36); BUN Creatinine Ratio 19.5 (6-22); Bilirubin Total 0.7 mg/dL (0.2-1.3); Blood Urea Nitrogen 22 mg/dL (7-17); Calcium 9.5 mg/dL (8.4-10.2); Carbon Dioxide 31 mmol/L (22-32); Chloride 102 mmol/L (98-107); Cholesterol 140 mg/dL (140-199); Estimated Glomerular Filt Rate 48 mL/min (>60); Globulin 3.4 g/dL (1.7-4.1); Glucose 89 mg/dL (80-110); HDL Cholesterol 38 mg/dL (40-60); HEMOLYSIS < 15 (0-50); LDL Cholesterol Calculated 78 mg/dL (<100); Potassium 4.9 mmol/L (3.4-5.1); Sodium 136 mmol/L (137-145); Total Protein 6.5 g/dL (6.3-8.2); Triglycerides 121 mg/dL (35-150)
== END ==
PROVIDERS: Family Provider Family Medicine; PCP Family Medicine; Referring Provider Internal Medicine Cardiovascular Disease; Visit Provider Internal Medicine Cardiovascular Disease
DX: Z13.220 Encounter for screening for lipoid disorders (principal); I10 Essential (primary) hypertension
CPT/HCPCS: 36415; 80053; 80061